=== PATIENT | male | born 1960 | race African-American/Black ===

== ENCOUNTER 2019-11-27 09:37 | Inpatient (IN) | payer OTHER ==
[2019-11-27] MEDS: Dextrose 5% in Water 1,000 ML IV SCH ×3 (12:22→22:47)
[2019-11-27] MEDS ORDERED: Electrolyte Replacement Protoc 1 EACH EACH IVPB ONE (12:51)
[2019-11-27] MEDS: Cefepime 1 GM in Sodium Chloride 0.9% 100 ML IVPB SCH (12:54)
[2019-11-27] MEDS: methylPREDNISolone Sod Succ 40 MG VIAL IVP SCH ×3 (12:54→23:29)
[2019-11-27] MEDS ORDERED: Propofol BOLUS 1,000 MG/100 ML VIAL IV PRN (13:00)
[2019-11-27] MEDS ORDERED: Albuterol 200 PUFF (6.7GM INHALER) INH SCH (13:00)
[2019-11-27] MEDS ORDERED: Ventilator Sedation Protocol 1 EACH FS SCH (13:00)
[2019-11-27] MEDS ORDERED: Morphine 2 MG/ML VIAL SLOW IVP PRN (13:00)
[2019-11-27] MEDS ORDERED: Fentanyl BOLUS 250 ML IVPB PRN (13:00)
[2019-11-27] MEDS ORDERED: fentaNYL Citrate/PF 2,000 MCG in Sodium Chloride 0.9% 60 ML IV SCH (13:00)
[2019-11-27] MEDS: Lorazepam 2 MG/ML VIAL SLOW IVP PRN ×3 (13:05→21:54)
[2019-11-27] MEDS: Propofol 1,000 MG/100 ML VIAL IV PRN (13:09)
[2019-11-27] MEDS ORDERED: Electrolyte Replacement Protocol FS PRN (13:15)
[2019-11-27] MEDS: REMDESIVIR (EUA) 100 MG in Sodium Chloride 0.9% 250 ML 230 ML IV SCH (13:40)
--- NOTE | 2019-11-27 19:15 | CON ---
DATE OF CONSULTATION: HISTORY OF PRESENT ILLNESS: A 58-year-old gentleman who was transferred from the [facility] with respiratory failure, status post intubation, status post insertion of a small-bore left-sided chest tube. The x-ray revealed a large pneumothorax. At 8 o'clock this morning, transferring physician, Dr. Sharpe notified me. The patient was being transferred after the patient developed progressive respiratory failure, probably from the pneumothorax. He has a right-sided subclavian catheter in place. Obviously, the patient is not able to give any history or information at this time. He was admitted on 11/22. It appears that he has received remdesivir, steroids, and broad-spectrum antibiotics. Unable to contact any family members. His initial diagnosis was zhou-positive pneumonia with metabolic encephalopathy, electrolyte imbalance, hypertension, BPH, probably bipolar disorder. PREVIOUS SURGERIES: Unobtainable at this time. REVIEW OF SYSTEMS: Difficult to obtain. PHYSICAL EXAMINATION: GENERAL: He is intubated, vented, sedated. VITAL SIGNS: Pulse 118, sats 95%, respirations 14, blood pressure 110/80. CHEST: Rhonchi and crackles. CARDIAC: Sinus tach. ABDOMEN: Soft. LABORATORY DATA: White count is 8000, H and H 11 and 36, platelet count is 183, slight left shift. His pO2 this morning was 29, pCO2 FiO2, apparently on a BiPAP. Sodium is 157. BUN and creatinine are normal. His C-reactive protein is 11. LDH is 615. DIAGNOSTIC STUDIES: I do not see any CT done of his chest, but CT brain was negative. His x-ray shows now a chest tube in place, still residual pneumothorax, bilateral infiltrates. ASSESSMENT: 1. Bilateral bronchopneumonia, zhou-positive pneumonia apparently on 11/23/2019. 2. Cachexia. 3. Electrolyte imbalance. 4. Hypertension. 5. Benign prostatic hypertrophy. 6. Depression. PLAN: IV fluids, D5 steroids, broad-spectrum antibiotics, chest tube in place. Nutrition being started. Long-term prognosis is poor. We will discuss with the family once we get the telephone number. Serial exam. We will try to culture his sputum for Gram stain if possible. Forty-five minutes of critical time. Job ID: [id number]
[2019-11-27] MEDS: Enoxaparin Sodium 80 MG/0.8 ML SYRINGE SC SCH (20:23)
[2019-11-27] MEDS: Famotidine/PF 20 mg/2ml Vial SLOW IVP SCH (20:23)
[2019-11-27] MEDS ORDERED: Enoxaparin Sodium 30 MG/0.3 ML SYRINGE SC SCH (21:00)
[2019-11-27] MEDS: Diltiazem HCl 125 MG, Admixture Fee 1 EACH in Sodium Chloride 0.9% 100 ML IVPB SCH (23:29)
[2019-11-28] MEDS ORDERED: Sodium Chloride 0.9% 250 ML IVPB SCH (00:15)
[2019-11-28] MEDS ORDERED: Sodium Chloride 0.9% 250 ML IV SCH (01:15)
[2019-11-28] MEDS: Cefepime 1 GM in Sodium Chloride 0.9% 100 ML IVPB SCH ×2 (01:15→13:25)
[2019-11-28] MEDS: Amiodarone 450 MG in Dextrose 5% in Water 250 ML IVPB SCH ×3 (01:16→18:23)
--- NOTE | 2019-11-28 01:18 | HP ---
CHIEF COMPLAINT: Respiratory failure. HISTORY OF PRESENT ILLNESS: Patient is a 58-year-old male who initially presented to [facility] on 11/22 with altered mental status. At this time, he was noted to have low oxygenation and at that time was already COVID positive. He was placed on BiPAP. He also was noted to have some mild rhabdomyolysis. The patient continued to be on BiPAP. Due to poor intake, he had a Dobhoff tube inserted and was started on tube feeding with also some free water given his hypernatremia. He was noted to have a transient tachycardia, possibly an SVT. He was on antibiotics and dexamethasone and was started on remdesivir. At this time, the reason that he was transferred from [facility] here was the patient became more tachypneic and tachycardic and was in worsening respiratory distress on the BiPAP. At this time, he had a chest x-ray which indicated a left-sided acute pneumothorax and also multifocal pneumonia. The patient had a left chest tube inserted and also was intubated and was transferred to [place] for further evaluation. PAST MEDICAL HISTORY: He has a history of schizoaffective disorder, hypertension, and tobacco abuse and marijuana abuse. ALLERGIES: HE HAS NO KNOWN DRUG ALLERGIES. MEDICATIONS: Per records indicate; 1. Amlodipine 10 mg daily. 2. Finasteride 5 mg daily. 3. Seroquel 100 mg daily. 4. Tamsulosin 0.4 mg daily. 5. Triamterene/hydrochlorothiazide 37.5/25 mg daily. REVIEW OF SYSTEMS: Unable to obtain. The patient is currently intubated. FAMILY HISTORY: Unable to be obtained. The patient is intubated. SOCIAL HISTORY: Again, he does have positive marijuana in his urine. Otherwise, unable to obtain, everything is from the records. PHYSICAL EXAMINATION: VITAL SIGNS: As of the following; temperature of 98.8, blood pressure 116/82, 109 heart rate. GENERAL: He is currently intubated, sedated. CV: S1, S2 present. Mild tachycardia. ABDOMEN: Soft. Bowel sounds are present x2. LUNGS: He has good air entry bilaterally. He has a chest tube on the left side that is inserted. NEUROVASCULAR: Again, unable to do a neuro exam. Patient is sedated. SKIN: No cuts, lesions, or bruises noted. LABORATORY RESULTS: WBCs of 8.0, hemoglobin of 11.5, hematocrit of 36.2, his platelets are 183. Chemistry; sodium of 157, potassium of 3.6, BUN of 45, creatinine of 0.75. His ferritin is 2581. His CRP was 11.86. He had a chest x-ray which indicated the left pneumothorax and infiltrates which appeared COVID-like appearance. ASSESSMENT AND PLAN: The patient is a 58-year-old male who presents to the hospital for altered mental status, went into respiratory failure and was evidently intubated and was transferred from [facility] to [place] for further evaluation. 1. Acute hypoxic respiratory failure, most likely secondary to the pneumothorax on the left, which was significant and also underlying coronavirus disease pneumonia. He is currently on antibiotics. His antibiotics have been changed from azithromycin and Rocephin to cefepime. 2. Decadron has been replaced with Solu-Medrol per Pulmonology. He was receiving remdesivir, which we will probably continue here. He received 3 doses. 3. Bacteremia. The patient's blood cultures indicated Streptococcus anginosus. He is currently on cefepime, which should cover that. We will continue to monitor. Unclear of the source. 4. Coronavirus disease pneumonia. We will continue the antibiotic. The patient is on remdesivir. He is on steroids. Prognosis is guarded. 5. Acute metabolic encephalopathy. The patient currently is intubated. 6. Deep venous thrombosis prophylaxis. Given patient's elevated D-dimer, we will start him on full-dose anticoagulation. We will check CBCs on a daily basis. We will check CRP and ferritin every 2-3 days. 7. Hypernatremia. We will start patient on some free water. 8. Nutrition. We will start patient on tube feedings. Job ID: [id number]
--- NOTE | 2019-11-28 02:22 | PDOC.EVN ---
Event Note - Event Note Event Note: Called by nursing for tachycardia, chart reviewed, patient seen and examined EKG reviewed with atrial fibrillation, started on cardizem drip by pulmonary and I ordered additional bolus, and also amiodarone bolus w/ CXR and some IVF, tachypneic to 30s, CXr reviewed will give lasix now, nursing to call Dr Reyes for further instructions on chest tube.
[2019-11-28] MEDS ORDERED: Furosemide 20 MG/2 ML VIAL ONE (02:29)
[2019-11-28] MEDS ORDERED: Furosemide 20 MG/2 ML VIAL SLOW IVP SCH (02:30)
[2019-11-28 02:33] LABS: Actual Bicarbonate (HCO3a) 23.4 mEq/L (22-28); Base Excess (BEa) 0.5 mEq/L (-2.0 to +3.0); CO2 Tension 32.1 mmHg (35.0-45.0); Calcium, Ionized (arterial) 1.06 mmol/L (1.12-1.30); Carboxyhemoglobin (COHb) 0.3 gm% (0.0-3.0); Hemoglobin (Hb) 11.3 g/dL (14.0-18.0); Potassium - ABG Lab 4.43 mmol/L (3.70-5.30); pH, Arterial 7.48 (7.35-7.45)
[2019-11-28 02:34] LABS: ALV-art Gradient 262.475 (0-20); O2 Tension (PaO2), arterial 53.9 mmHg (80.0-100.0); Puncture Site RBA
[2019-11-28] MEDS ORDERED: Amiodarone 150 MG, Admixture Fee 1 EACH in Dextrose 5% in Water 100 ML IVPB SCH (02:45)
[2019-11-28 05:25] LABS: Hemoglobin 10.9 g/dL (14.0-18.0); Mean Corpuscular HGB CONC 31.9 g/dL (32.0-36.0); Mean Corpuscular Hemoglobin 32.4 pg (27.0-31.0); Mean Platelet Volume 10.1 fL (7.4-10.4); Platelet Count 133 thou/uL (130-400); RBC Distribution Width 12.6 % (11.5-14.5); Red Blood Cell (RBC) Count 3.38 mill/uL (4.70-6.10); White Blood Cell (WBC) Count 7.7 thou/uL (4.8-10.8)
[2019-11-28] MEDS: methylPREDNISolone Sod Succ 40 MG VIAL IVP SCH ×3 (05:51→18:22)
[2019-11-28 05:53] LABS: Anion Gap 12 mmol/L (10-20); BUN (Urea Nitrogen) 47 mg/dL (8.4-25.7); Calc. Creatinine Clearance 94 mL/min (70-130); Calcium 7.3 mg/dL (7.8-10.44); Carbon Dioxide 26 mmol/L (22-29); Chloride 117 mmol/L (98-107); Estimated GFR-MDRD Greater than 90; Glucose 218 mg/dL (70-105); Potassium 4.1 mmol/L (3.5-5.1); Sodium 151 mmol/L (136-145)
[2019-11-28 06:09] LABS: Band 13 % (5-11); Lymphocytes 4 % (21-51); MDiff Complete? YES; Monocytes 1 % (0-10); Neutrophil 82 % (42-75)
[2019-11-28] MEDS: Diltiazem HCl 125 MG, Admixture Fee 1 EACH in Sodium Chloride 0.9% 100 ML IVPB SCH (07:17)
[2019-11-28 07:36] LABS: Actual Bicarbonate (HCO3a) 23.7 mEq/L (22-28); Base Excess (BEa) 0.5 mEq/L (-2.0 to +3.0); CO2 Tension 33.2 mmHg (35.0-45.0); Calcium, Ionized (arterial) 1.07 mmol/L (1.12-1.30); Carboxyhemoglobin (COHb) 0.3 gm% (0.0-3.0); Hemoglobin (Hb) 11.8 g/dL (14.0-18.0); O2 Tension (PaO2), arterial 73.6 mmHg (80.0-100.0); Potassium - ABG Lab 3.96 mmol/L (3.70-5.30); pH, Arterial 7.47 (7.35-7.45)
[2019-11-28 07:41] LABS: Puncture Site RR
[2019-11-28] MEDS ORDERED: Digoxin 0.5 MG/2 ML AMP SLOW IVP SCH ×2 (08:45→22:45)
[2019-11-28] MEDS ORDERED: Magnesium 2 GM/50 ML 2 GM in Premix Bag 1 BAG IVPB SCH (08:45)
--- NOTE | 2019-11-28 08:49 | RAD ---
Exam: Chest one view HISTORY:Status post intubation and chest tube placement. Respiratory distress. Ventilated patient Comparison: 11/27/2019 FINDINGS: Lines and tubes: Redemonstration of a Dobbhoff feeding tube, endotracheal tube, right-sided vascular catheter and a left-sided chest tube. Cardiac silhouette:Unchanged Aorta: Atherosclerosis Pulmonary vessels: Normal Costophrenic angles: Bilateral pleural effusions. Lungs: Persistent lung parenchymal opacities compatible with interstitial and alveolar infiltrates. Pneumothorax: Small left apical pneumothorax cannot be entirely excluded. Osseous abnormalities: None Additional findings: Increased lucency projecting over the left upper quadrant. Findings may be due t o gastric distention. Further evaluation with an abdomen radiograph series would be beneficial. IMPRESSION: 1. Small left apical pneumothorax cannot be entirely excluded. 2. Questionable increased lucency projecting over the left upper quadrant. Abdomen radiograph series would be beneficial. Findings conveyed to Pippa, patient's nurse, on 11/28/2019 at 8:48 AM. Code CR Transcribed Date/Time: 11/28/2019 10:22 AM
[2019-11-28] MEDS: Finasteride 5 MG TAB PO SCH (09:53)
[2019-11-28] MEDS: Enoxaparin Sodium 80 MG/0.8 ML SYRINGE SC SCH ×2 (09:53→20:51)
[2019-11-28] MEDS: Tamsulosin HCl 0.4 MG CAP PO SCH (09:53)
[2019-11-28] MEDS: Famotidine/PF 20 mg/2ml Vial SLOW IVP SCH ×2 (09:53→20:51)
[2019-11-28] MEDS: Dextrose 5% in Water 1,000 ML IV SCH ×2 (10:00→18:23)
--- NOTE | 2019-11-28 11:18 | CON ---
DATE OF CONSULTATION: 11/28/2019 REASON FOR CONSULTATION: AFib RVR. HISTORY OF PRESENT ILLNESS: Mr. Sheikh is a 58-year-old gentleman, who comes to the hospital for shortness of breath. He was actually admitted to the [facility] with a COVID-19 pneumonia. He eventually started to get a lot worse with worsening respiratory insufficiency. He also had a large pneumothorax. He was transferred over. A chest tube was placed and intubated. Cardiology has been consulted as he developed AFib RVR, heart rate in the 160s. Currently, on my evaluation, Mr. Sheikh remains sedated and intubated. PAST MEDICAL HISTORY: 1. Schizoaffective disorder. 2. Hypertension. 3. Tobacco abuse. 4. Marijuana use. OUTPATIENT MEDICATIONS: 1. Amlodipine 10 mg a day. 2. Finasteride. 3. Seroquel. 4. Tamsulosin. 5. Triamterene-hydrochlorothiazide 37.5/25 a day. ALLERGIES: NO KNOWN DRUG ALLERGIES. FAMILY HISTORY: Unobtainable as the patient is intubated. SOCIAL HISTORY: Positive marijuana in his urine, otherwise unknown. REVIEW OF SYSTEMS: Unobtainable as the patient is sedated and intubated. PHYSICAL EXAMINATION: VITAL SIGNS: Temperature 99.9; however, he came in at 100.4; pulse 135, currently at 128; blood pressure 104/73; respiratory rate 29; saturating 95% on 60% FiO2. GENERAL: Sedated, intubated. NECK: Supple. LUNGS: Have coarse breath sounds. CARDIOVASCULAR: Irregularly irregular. Heart rate in the 120s-130s. No murmurs. ABDOMEN: Soft. EXTREMITIES: No edema. SKIN: Warm and dry. LABORATORY DATA: Laboratory work was reviewed. CBC with a white count of 7.7, hemoglobin of 10, hematocrit of 34, platelet count of 133. Coags were reviewed. ABGs were reviewed. Chemistries were reviewed. Potassium it is at 4.1; however , it was low initially. Yesterday, he came in at 3.5-3.6. Ferritin was 2500, down to 1400. Troponin was drawn once on the and it was 0.38. UA toxicology was positive for cannabis. COVID-19 RNA PCR was positive. ASSESSMENT: 1. Atrial fibrillation, rapid ventricular response. 2. Coronavirus disease-19 pneumonia. 3. Pneumothorax, which is small. PLAN: 1. Continue amiodarone drip. This was started last night. 2. We will give a dose of digoxin. 3. Hopefully, once his acute respiratory insufficiency resolves, his heart rate is going to come down eventually. We do not have a lot of blood pressure to work with as far as trying to get him on more AV stephy blocking agents. 4. Continue supportive care. 5. We will get echocardiogram. Thank you for letting us to participate in the care patient of your patient. We will follow. 45 minutes of critical care time. Job ID: [id number] MTDD
[2019-11-28] MEDS: Propofol 1,000 MG/100 ML VIAL IV PRN (11:19)
[2019-11-28] MEDS: Lorazepam 2 MG/ML VIAL SLOW IVP PRN (11:19)
--- NOTE | 2019-11-28 13:07 | PRG ---
DATE OF SERVICE: 11/28/2019 SUBJECTIVE: A 58-year-old male being seen for hypernatremia. The patient is resting, intubated. PHYSICAL EXAMINATION: General: The patient is resting. Vital Signs: Afebrile, pulse 75, breathing at 16, blood pressure 135/84. HEENT: Head normocephalic and atraumatic. Eyes intact, no ulcers. Nose intact, no ulcers. Ears intact, no ulcers. Neck: Supple. No JVD. Chest: Symmetrical and clear. Cardiovascular: Shows S1 and S2, no rub, no murmur. Gastrointestinal: Abdomen is soft, bowel sounds positive. Extremities: Show no edema or ulcers. Skin: Shows no rash or petechiae. Musculoskeletal: Shows no joint swelling or stiffness. Genitourinary: Shows no Mustafa or CVA tenderness. Neurologic: Motor intact. Cranial nerves intact. LABORATORY DATA: Show hemoglobin 10.9, creatinine 0.8, sodium 151. ASSESSMENT AND PLAN: 1. Hypernatremia, improved. 2. Acute kidney injury chronic kidney disease stage 1, stable. 3. Hypertension, stable. 4. Continue hydration with D5 water. Check labs in the morning. Job ID: [id number]
[2019-11-28] MEDS: REMDESIVIR (EUA) 100 MG in Sodium Chloride 0.9% 250 ML 230 ML IV SCH (13:31)
[2019-11-28 15:06] LABS: Anion Gap 9 mmol/L (10-20); BUN (Urea Nitrogen) 46 mg/dL (8.4-25.7); Calc. Creatinine Clearance 91 mL/min (70-130); Calcium 7.1 mg/dL (7.8-10.44); Carbon Dioxide 29 mmol/L (22-29); Chloride 114 mmol/L (98-107); Estimated GFR-MDRD Greater than 90; Glucose 250 mg/dL (70-105); Potassium 4.1 mmol/L (3.5-5.1); Sodium 148 mmol/L (136-145)
--- NOTE | 2019-11-28 21:33 | PDOC.HOSPP ---
- Subjective Encounter Date: 11/28/19 Encounter Time: 11:00 non-verbal Subjective: Patient is intubated and managed on the vent Had RVR overnight requiring additional bolus of diltiazem and also amiodarone by night team I did not physically examine the patient as pulmonology was following - Objective Vital Signs & Weight: Vital Signs (12 hours) Temp Pulse Resp BP Pulse Ox 11/28/19 21:00 99.0 F 11/28/19 20:00 98.3 F 24 H 98 11/28/19 19:45 98.3 F 11/28/19 18:52 139 H 83/67 L 11/28/19 18:00 25 H 11/28/19 16:00 99.3 F 24 H 11/28/19 14:33 131 H 86/64 L 11/28/19 14:00 32 H 11/28/19 12:00 99.7 F H 30 H 11/28/19 10:23 135 H 104/73 11/28/19 10:00 151 H 34 H Weight Admit Weight 146 lb 9.718 oz Weight 147 lb 4.288 oz Most Recent Monitor Data Heart Rate from ECG 143 NIBP 98/52 NIBP BP-Mean 67 Respiration from ECG 19 SpO2 98 I&O: 11/27/19 11/28/19 11/29/19 06:59 06:59 06:59 Intake Total 1798.5 1759.8 Output Total 2050 1410 Balance -251.5 349.8 Result Diagrams: 12/03/19 07:43 12/05/19 19:35 Hospitalist ROS - Review of Systems Other: Unable to access - Medication Medications: Active Medications Generic Name Dose Route Start Last Admin Trade Name Freq PRN Reason Stop Dose Admin Albuterol/Ipratropium 3 ml 11/27/19 19:00 11/28/19 18:51 Duoneb NEB 3 ml [id number] ENZO Administration Enoxaparin Sodium 70 mg 11/27/19 21:00 11/28/19 20:51 Lovenox SC 70 mg 0900,2100 ENZO Administration Famotidine 20 mg 11/27/19 21:00 11/28/19 20:51 Pepcid SLOW IVP 20 mg BID ENZO Administration Finasteride 5 mg 11/28/19 09:00 11/28/19 09:53 Proscar PO 5 mg DAILY ENZO Administration Cefepime HCl 1 gm/ Sodium 100 mls @ 200 mls/hr 11/27/19 13:00 11/28/19 13:25 Chloride IVPB 100 mls 0100,1300 ENZO Administration Dextrose/Water 1,000 mls @ 100 mls/hr 11/27/19 12:00 11/28/19 18:23 D5w IV 1,000 mls .Q10H ENZO Administration Remdesivir 100 mg/ Sodium 250 mls @ 250 mls/hr 11/27/19 13:00 11/28/19 13:31 Chloride IV 11/29/19 13:59 250 mls 1300 ENZO Administration Fentanyl Citrate 2,000 mcg/ 100 mls @ 0 mls/hr 11/27/19 13:00 11/27/19 18:27 Sodium Chloride IV 12/27/19 13:00 100 mls INF ENZO Administration Protocol Per Protocol Diltiazem HCl 125 mg/ 125 mls @ 0 mls/hr 11/27/19 23:30 11/28/19 07:17 Miscellaneous Medication 1 IVPB 125 mls each/ Sodium Chloride INF ENZO Administration Protocol As Directed Amiodarone HCl 450 mg/ 259 mls @ 0 mls/hr 11/28/19 01:15 11/28/19 18:23 Dextrose/Water IVPB 259 mls INF ENZO Administration Protocol Per Protocol Lorazepam 2 mg 11/27/19 13:00 11/28/19 11:19 Ativan SLOW IVP 12/27/19 13:00 2 mg Q1H PRN Administration Breakthrough agitation Methylprednisolone Sodium Succinate 40 mg 11/27/19 12:00 11/28/19 18:22 Solu-Medrol IVP 40 mg Q6HR ENZO Administration Propofol 1,000 mg 11/27/19 13:00 11/28/19 11:19 Diprivan IV 12/27/19 13:00 1,000 mg INF PRN Administration TO ACHIEVE GOAL RASS Protocol Quetiapine Fumarate 200 mg 11/27/19 21:00 11/28/19 20:51 Seroquel PO 200 mg HS ENZO Administration Tamsulosin HCl 0.4 mg 11/28/19 09:00 11/28/19 09:53 Flomax PO 0.4 mg DAILY ENZO Administration Hosp A/P - Plan Patient admitted on account of covid 19 pneumonia and pneumothorax with chest tube. -Acute hypoxic respiratory failure Secondary to covid pneumonia and pneumothorax Chest tube is in place and patient on vent support Continue monitoring Pulmonology following -Pneumothorax continue chest tube management -Covid-19 infection Decadron changed to solumedrol contine on remdesevir Also on cefepime for pneumonia and to cover staph -Afib with RVR Still having RVR Continne on amiodarone and diltiazem Echocardiogram shows normal EF cardiology following
[2019-11-29] MEDS: Cefepime 1 GM in Sodium Chloride 0.9% 100 ML IVPB SCH ×3 (00:13→23:45)
[2019-11-29] MEDS: methylPREDNISolone Sod Succ 40 MG VIAL IVP SCH ×5 (00:13→23:45)
[2019-11-29] MEDS: Dextrose 5% in Water 1,000 ML IV SCH (00:14)
[2019-11-29 05:45] LABS: Anion Gap 9 mmol/L (10-20); BUN (Urea Nitrogen) 46 mg/dL (8.4-25.7); Calc. Creatinine Clearance 89 mL/min (70-130); Calcium 7.1 mg/dL (7.8-10.44); Carbon Dioxide 27 mmol/L (22-29); Chloride 110 mmol/L (98-107); Estimated GFR-MDRD Greater than 90; Glucose 315 mg/dL (70-105); Potassium 4.1 mmol/L (3.5-5.1); Sodium 142 mmol/L (136-145)
[2019-11-29 07:15] LABS: Band 20 % (5-11); Hemoglobin 10.5 g/dL (14.0-18.0); Lymphocytes 1 % (21-51); MDiff Complete? YES; Mean Corpuscular HGB CONC 31.1 g/dL (32.0-36.0); Mean Corpuscular Hemoglobin 32.1 pg (27.0-31.0); Mean Platelet Volume 10.5 fL (7.4-10.4); Neutrophil 79 % (42-75); Platelet Count 110 thou/uL (130-400); Platelet Morphology Comment Appears Decreased; RBC Distribution Width 12.3 % (11.5-14.5); Red Blood Cell (RBC) Count 3.28 mill/uL (4.70-6.10); White Blood Cell (WBC) Count 11.4 thou/uL (4.8-10.8)
--- NOTE | 2019-11-29 07:54 | PRG ---
DATE OF SERVICE: 11/28/2019 SUBJECTIVE: SVT last night. He was given Cardizem as admitted as well as amiodarone. His heart rate is still 130, SVT. OBJECTIVE: VITAL SIGNS: Blood pressure 120/80, respirations 20, and sats are 93%. CHEST: Reveals decreased breath sounds. Bilateral crackles. CARDIAC: SVT. ABDOMEN: Soft. NEUROLOGICALLY: Sedated. LABORATORY DATA: PO2 73, pCO2 33, pH 7.47, PEEP of 5, rate of 20, 50%. Sodium is down to 151, creatinine 4.7, bicarb is 21. His C-reactive protein . X-ray shows bilateral infiltrates. ASSESSMENT: 1. Coronavirus positive pneumonia, spontaneous left pneumothorax with persistent air leak. 2. Supraventricular tachycardia. 3. History of hypertension. 4. History of benign prostatic hypertrophy. He is getting remdesivir. He is on steroids, broad-spectrum antibiotics, and Zithromax. I am going to go ahead and order a bag of convalescent plasma. Input from Cardiology. One-half hour of critical care time. Job ID: [id number]
[2019-11-29 08:06] LABS: Actual Bicarbonate (HCO3a) 24.3 mEq/L (22-28); Base Excess (BEa) -0.9 mEq/L (-2.0 to +3.0); CO2 Tension 42.3 mmHg (35.0-45.0); Calcium, Ionized (arterial) 1.09 mmol/L (1.12-1.30); Carboxyhemoglobin (COHb) 0.3 gm% (0.0-3.0); Hemoglobin (Hb) 11.1 g/dL (14.0-18.0); O2 Tension (PaO2), arterial 83.6 mmHg (80.0-100.0); Potassium - ABG Lab 4.08 mmol/L (3.70-5.30); pH, Arterial 7.38 (7.35-7.45)
[2019-11-29 08:08] LABS: ALV-art Gradient 184.375 (0-20)
[2019-11-29] MEDS: Amiodarone 450 MG in Dextrose 5% in Water 250 ML IVPB SCH ×2 (08:42→22:11)
[2019-11-29] MEDS: Enoxaparin Sodium 80 MG/0.8 ML SYRINGE SC SCH ×2 (08:45→20:30)
[2019-11-29] MEDS: Famotidine/PF 20 mg/2ml Vial SLOW IVP SCH ×2 (08:45→20:30)
[2019-11-29] MEDS: Tamsulosin HCl 0.4 MG CAP PO SCH (08:45)
[2019-11-29] MEDS: Finasteride 5 MG TAB PO SCH (08:45)
[2019-11-29] MEDS ORDERED: Carvedilol 3.125 MG TAB PO SCH ×2 (08:45→17:00)
[2019-11-29] MEDS: Sodium Chloride 0.45% 1,000 ML IV SCH (08:46)
--- NOTE | 2019-11-29 09:21 | PRG ---
DATE OF SERVICE: 11/29/2019 SUBJECTIVE: Amos Sheikh remains intubated in the vent, sedated. He is still running a heart rate of 140 to 150, SVT. OBJECTIVE: VITAL SIGNS: His blood pressure is 90/50, sats 98%. His I's and O's have been good. Electrolyte imbalance was improved. CHEST: Decreased breath sounds. Minimal rhonchi. Crackles. No wheezing. CARDIAC: SVT. ABDOMEN: Soft. LABORATORY DATA: White count 11,000; H and H 10 and 30; and platelet count is 110. PO2 is 83, pCO2 tidal volume. His sodium is 142, glucose is 315, azotemia much improved. His BUN and creatinine are still 46 and 0.48. ASSESSMENT: 1. Renal failure, prerenal, improving. 2. Coronavirus positive pneumonia. 3. Spontaneous pneumothorax, baseline apparently. 4. Schizophrenia, bipolar disorder. He is starting nutrition. Continue steroids. He got plasma and remdesivir. He is doing much better. His x-ray looks 100% better. Hopefully, we can start weaning him. I am going to add low-dose Coreg to his present regime. Lower his heart rate down. One-half hour of critical care time. Job ID: [id number]
[2019-11-29] MEDS ORDERED: Dextrose 50% Abboject 50 ML SYRINGE SLOW IVP PRN (09:41)
[2019-11-29] MEDS ORDERED: Dextrose 5% in Water 1,000 ML IV PRN (09:41)
--- NOTE | 2019-11-29 11:27 | RAD ---
AP CHEST: HISTORY: Central line placement. COMPARISON: 11/28/19 FINDINGS: ET tube and NG tube remain in place. A central line overlies the SVC. Confluent infiltrate and atelectasis in the left lung base. Hazy infiltrate throughout the right lung . The bilateral infiltrates appear improved when compared to 11/28/19. A left pigtail chest tube overlies the peripheral left chest and appears unchanged in position. I can not exclude a loculated air collection in the left lung base. POS: AGW
[2019-11-29] MEDS: REMDESIVIR (EUA) 100 MG in Sodium Chloride 0.9% 250 ML 230 ML IV SCH (12:55)
[2019-11-29] MEDS: HumaLOG 300 UNITS/3 ML VIAL SC PRN ×2 (12:57→17:23)
--- NOTE | 2019-11-29 14:39 | PRG ---
DATE OF SERVICE: 11/29/2019 SUBJECTIVE: A 58-year-old gentleman being seen for acute kidney injury. The patient is intubated. OBJECTIVE: GENERAL: On examination, the patient is resting. VITAL SIGNS: Afebrile, pulse 128, breathing at 16, and blood pressure 96/62. HEENT: Head normocephalic and atraumatic. Eyes intact, no ulcers. Nose intact, no ulcers. Ears intact, no ulcers. NECK: Supple. No JVD. CHEST: Symmetrical and clear. CARDIOVASCULAR: Shows S1 and S2, no rub, no murmur. GASTROINTESTINAL: Abdomen is soft, bowel sounds positive. EXTREMITIES: Show no edema or ulcers. SKIN: Shows no rash or petechiae. MUSCULOSKELETAL: Shows no joint swelling or stiffness. GENITOURINARY: Shows no Mustafa or CVA tenderness. NEUROLOGIC: Motor intact. Cranial nerves intact. LABORATORY DATA: Hemoglobin 10.5. Creatinine 0.8. ASSESSMENT AND PLAN: 1. Acute kidney injury, resolved. 2. Hyponatremia, resolved. I will sign off on this patient. Please reconsult as needed. Job ID: [id number]
--- NOTE | 2019-11-29 16:12 | PDOC.HOSPP ---
- Subjective Encounter Date: 11/29/19 Encounter Time: 02:00 non-verbal Subjective: Stable overnight. Still had RVR I did not physicaly examine him. - Objective Vital Signs & Weight: Vital Signs (12 hours) Temp Pulse Resp BP Pulse Ox 11/29/19 15:41 142 H 108/65 11/29/19 14:00 26 H 11/29/19 13:06 128 H 96/62 11/29/19 12:00 98.5 F 25 H 11/29/19 10:31 120 H 101/78 11/29/19 10:00 20 11/29/19 08:00 98.5 F 14 97 11/29/19 07:37 147 H 11/29/19 06:00 22 H Weight Admit Weight 146 lb 9.718 oz Weight 147 lb 4.301 oz Most Recent Monitor Data Heart Rate from ECG 129 NIBP 108/65 NIBP BP-Mean 79 Respiration from ECG 14 SpO2 93 I&O: 11/28/19 11/29/19 11/30/19 06:59 06:59 06:59 Intake Total 1798.5 3602.8 100 Output Total 2050 2305 715 Balance -251.5 1297.8 -615 Result Diagrams: 12/03/19 07:43 12/05/19 19:35 Additional Labs: Accuchecks 11/29/19 12:32 POC Glucose 209 H Hospitalist ROS - Review of Systems ROS unobtainable: due to endotracheal tube - Medication Medications: Active Medications Generic Name Dose Route Start Last Admin Trade Name Freq PRN Reason Stop Dose Admin Albuterol/Ipratropium 3 ml 11/27/19 19:00 11/29/19 13:06 Duoneb NEB 3 ml [id number] ENZO Administration Enoxaparin Sodium 70 mg 11/27/19 21:00 11/29/19 08:45 Lovenox SC 70 mg 0900,2100 ENZO Administration Famotidine 20 mg 11/27/19 21:00 11/29/19 08:45 Pepcid SLOW IVP 20 mg BID ENZO Administration Finasteride 5 mg 11/28/19 09:00 11/29/19 08:45 Proscar PO 5 mg DAILY ENZO Administration Cefepime HCl 1 gm/ Sodium 100 mls @ 200 mls/hr 11/27/19 13:00 11/29/19 12:21 Chloride IVPB 100 mls 0100,1300 ENZO Administration Fentanyl Citrate 2,000 mcg/ 100 mls @ 0 mls/hr 11/27/19 13:00 11/27/19 18:27 Sodium Chloride IV 12/27/19 13:00 100 mls INF ENZO Administration Protocol Per Protocol Diltiazem HCl 125 mg/ 125 mls @ 0 mls/hr 11/27/19 23:30 11/28/19 07:17 Miscellaneous Medication 1 IVPB 125 mls each/ Sodium Chloride INF ENZO Administration Protocol As Directed Amiodarone HCl 450 mg/ 259 mls @ 0 mls/hr 11/28/19 01:15 11/29/19 08:42 Dextrose/Water IVPB 259 mls INF ENZO Administration Protocol Per Protocol Sodium Chloride 1,000 mls @ 50 mls/hr 11/29/19 08:30 11/29/19 08:46 1/2 Normal Saline IV 1,000 mls .Q20H ENZO Administration Insulin Human Lispro 0 units 11/29/19 09:41 11/29/19 12:57 Humalog SC 3 unit .MILD SLIDING SCALE PRN Administration Mild Correctional Scale Lorazepam 2 mg 11/27/19 13:00 11/28/19 11:19 Ativan SLOW IVP 12/27/19 13:00 2 mg Q1H PRN Administration Breakthrough agitation Methylprednisolone Sodium Succinate 40 mg 11/27/19 12:00 11/29/19 12:22 Solu-Medrol IVP 40 mg Q6HR ENZO Administration Propofol 1,000 mg 11/27/19 13:00 11/28/19 11:19 Diprivan IV 12/27/19 13:00 1,000 mg INF PRN Administration TO ACHIEVE GOAL RASS Protocol Quetiapine Fumarate 200 mg 11/27/19 21:00 11/28/19 20:51 Seroquel PO 200 mg HS ENZO Administration Tamsulosin HCl 0.4 mg 11/28/19 09:00 11/29/19 08:45 Flomax PO 0.4 mg DAILY ENZO Administration Hosp A/P - Plan Patient admitted as a transfer from [facility] on account of covid 19 pneumonia and pneumothorax with chest tube. -Acute hypoxic respiratory failure Secondary to covid pneumonia and pneumothorax Chest tube is in place and patient on vent support Continue monitoring Pulmonology following -Covid-19 pneumonia Market improvement in chest x-ray today We will continue steroids Received plasma contine on remdesevir Also on cefepime for pneumonia -Pneumothorax continue chest tube management Pulmonology is on board Hyperglycemia Likely secondary to steroids We will start on low correctional dose insulin Close glucose monitoring -Afib with RVR Still having RVR Continne on amiodarone and diltiazem Echocardiogram shows normal EF cardiology following VT prophylaxisLovenox Dispositionpending improvement
--- NOTE | 2019-11-29 16:23 | PDOC.CPN ---
- Subjective Date: 11/29/19 Time: 11:00 Interval history: He remains intubated, sedated. - Review of Systems ROS unobtainable: due to endotracheal tube - Objective Allergies/Adverse Reactions: Allergies Allergy/AdvReac Type Severity Reaction Status Date / Time No Known Allergies Allergy Unverified 11/23/19 10:51 Visit Medications: Current Medications Albuterol/Ipratropium (Duoneb) 3 ml NEB [id number] [facility] Last Admin: 11/29/19 13:06 Dose: 3 ml Carvedilol (Coreg) 3.125 mg PO BID-[facility] Dextrose/Water (Dextrose 50%) 25 gm SLOW IVP PRN PRN PRN Reason: Hypoglycemia Enoxaparin Sodium (Lovenox) 70 mg SC 0900,2100 [facility] Last Admin: 11/29/19 08:45 Dose: 70 mg Famotidine (Pepcid) 20 mg SLOW IVP BID [facility] Last Admin: 11/29/19 08:45 Dose: 20 mg Finasteride (Proscar) 5 mg PO DAILY [facility] Last Admin: 11/29/19 08:45 Dose: 5 mg Glucagon (Glucagon) 1 mg IM PRN PRN PRN Reason: Hypoglycemia Cefepime HCl 1 gm/ Sodium (Chloride) 100 mls @ 200 mls/hr IVPB 0100,1300 [facility] Last Admin: 11/29/19 12:21 Dose: 100 mls Fentanyl Citrate 2,000 mcg/ (Sodium Chloride) 100 mls @ 0 mls/hr IV INF [facility]; Protocol Stop: 12/27/19 13:00 Last Admin: 11/27/19 18:27 Dose: 100 mls Fentanyl Citrate (Fentanyl Bolus) 250 mls @ 0 mls/hr IVPB PRN PRN PRN Reason: Breakthrough pain/agitation Stop: 12/27/19 13:00 Diltiazem HCl 125 mg/Miscellaneous Medication 1 each/ Sodium Chloride 125 mls @ 0 mls/hr IVPB INF [facility]; Protocol Last Admin: 11/28/19 07:17 Dose: 125 mls Amiodarone HCl 450 mg/ (Dextrose/Water) 259 mls @ 0 mls/hr IVPB INF [facility]; Protocol Last Admin: 11/29/19 08:42 Dose: 259 mls Sodium Chloride (1/2 Normal Saline) 1,000 mls @ 50 mls/hr IV .Q20H [facility] Last Admin: 11/29/19 08:46 Dose: 1,000 mls Dextrose/Water (D5w) 1,000 mls @ 0 mls/hr IV .Q0M PRN PRN Reason: Hypoglycemia Insulin Human Lispro (Humalog) 0 units SC .MILD SLIDING SCALE PRN PRN Reason: Mild Correctional Scale Last Admin: 11/29/19 12:57 Dose: 3 unit Lorazepam (Ativan) 2 mg SLOW IVP Q1H PRN PRN Reason: Breakthrough agitation Stop: 12/27/19 13:00 Last Admin: 11/28/19 11:19 Dose: 2 mg Methylprednisolone Sodium Succinate (Solu-Medrol) 40 mg IVP Q6HR [facility] Last Admin: 11/29/19 12:22 Dose: 40 mg Miscellaneous Medication (Electrolyte Replacement Protocol) 0 each FS ASDIR PRN ; Protocol PRN Reason: ELECTROLYTE REPLACEMENT Morphine Sulfate (Morphine) 2 mg SLOW IVP Q1H PRN PRN Reason: Breakthrough Pain/Agitation Stop: 12/27/19 13:00 Propofol (Diprivan) 1,000 mg IV INF PRN; Protocol PRN Reason: TO ACHIEVE GOAL RASS Stop: 12/27/19 13:00 Last Admin: 11/28/19 11:19 Dose: 1,000 mg Propofol (Diprivan Bolus) 20 mg IV Q5MIN PRN PRN Reason: BREAKTHROUGH AGITATION Stop: 12/27/19 13:00 Quetiapine Fumarate (Seroquel) 200 mg PO HS [facility] Last Admin: 11/28/19 20:51 Dose: 200 mg Tamsulosin HCl (Flomax) 0.4 mg PO DAILY [facility] Last Admin: 11/29/19 08:45 Dose: 0.4 mg Vital Signs & Weight: Vital Signs Temp Pulse Resp BP Pulse Ox 11/29/19 15:41 142 H 108/65 11/29/19 14:00 26 H 11/29/19 13:06 128 H 96/62 11/29/19 12:00 98.5 F 25 H 11/29/19 10:31 120 H 101/78 11/29/19 10:00 20 11/29/19 08:00 98.5 F 14 97 11/29/19 07:37 147 H 11/29/19 06:00 22 H Admit Weight 146 lb 9.718 oz Weight 147 lb 4.301 oz - Physical Exam General: other (Not done due to COVID 19 infection.) - Labs Result Diagrams: 11/29/19 04:47 11/29/19 04:47 - Telemetry Supraventricular conduction: atrial fibrillation - Assessment/Plan Assessment/Plan: ASSESSMENT: 1. Atrial fibrillation, rapid ventricular response. 2. COVID-19 pneumonia. 3. Pneumothorax PLAN: - Continue amiodarone drip. - Will start daily PO digoxin - Continue supportive care. - Normal LV function on echo. - BP borderline low, will try to start low dose BB will choose Metoprolol as it has more HR control properties and less BP lowering properties than coreg.
[2019-11-29] MEDS: Metoprolol Tartrate 25 MG TAB PO SCH (20:30)
[2019-11-29] MEDS: Propofol 1,000 MG/100 ML VIAL IV PRN (22:10)
[2019-11-30] MEDS: Sodium Chloride 0.45% 1,000 ML IV SCH (04:22)
[2019-11-30] MEDS: methylPREDNISolone Sod Succ 40 MG VIAL IVP SCH ×4 (05:28→23:24)
[2019-11-30 06:20] LABS: Anion Gap 7 mmol/L (10-20); BUN (Urea Nitrogen) 49 mg/dL (8.4-25.7); Calc. Creatinine Clearance 92 mL/min (70-130); Calcium 7.2 mg/dL (7.8-10.44); Carbon Dioxide 27 mmol/L (22-29); Chloride 108 mmol/L (98-107); Estimated GFR-MDRD Greater than 90; Glucose 219 mg/dL (70-105); Potassium 4.4 mmol/L (3.5-5.1); Sodium 138 mmol/L (136-145)
[2019-11-30 06:43] LABS: Band 16 % (5-11); Hemoglobin 11.4 g/dL (14.0-18.0); MDiff Complete? YES; Mean Corpuscular HGB CONC 31.7 g/dL (32.0-36.0); Mean Corpuscular Hemoglobin 31.8 pg (27.0-31.0); Mean Platelet Volume 11.6 fL (7.4-10.4); Monocytes 1 % (0-10); Neutrophil 83 % (42-75); Platelet Count 117 thou/uL (130-400); Platelet Morphology Comment Appears Decreased; RBC Distribution Width 11.9 % (11.5-14.5); Red Blood Cell (RBC) Count 3.58 mill/uL (4.70-6.10); White Blood Cell (WBC) Count 15.8 thou/uL (4.8-10.8)
[2019-11-30 06:45] LABS: Actual Bicarbonate (HCO3a) 24.4 mEq/L (22-28); Base Excess (BEa) -1.3 mEq/L (-2.0 to +3.0); CO2 Tension 45.3 mmHg (35.0-45.0); Calcium, Ionized (arterial) 1.12 mmol/L (1.12-1.30); Carboxyhemoglobin (COHb) 0.3 gm% (0.0-3.0); Hemoglobin (Hb) 12.6 g/dL (14.0-18.0); O2 Tension (PaO2), arterial 99.3 mmHg (80.0-100.0); Potassium - ABG Lab 4.31 mmol/L (3.70-5.30); pH, Arterial 7.35 (7.35-7.45)
[2019-11-30 06:50] LABS: ALV-art Gradient 164.925 (0-20); Puncture Site RRA
[2019-11-30] MEDS: Enoxaparin Sodium 80 MG/0.8 ML SYRINGE SC SCH ×2 (08:13→19:21)
[2019-11-30] MEDS: Famotidine/PF 20 mg/2ml Vial SLOW IVP SCH ×2 (08:13→19:21)
[2019-11-30] MEDS: Tamsulosin HCl 0.4 MG CAP PO SCH (08:14)
[2019-11-30] MEDS: Metoprolol Tartrate 25 MG TAB PO SCH ×2 (08:14→19:21)
[2019-11-30] MEDS: Digoxin 0.25 MG TAB PO SCH (08:14)
[2019-11-30] MEDS: Finasteride 5 MG TAB PO SCH (08:14)
--- NOTE | 2019-11-30 09:28 | PRG ---
DATE OF SERVICE: 11/30/2019 SUBJECTIVE: This morning, he is intubated, in the vent. He is sedated. OBJECTIVE: VITAL SIGNS: Temperature 98, pulse 65, respiratory rate 23, blood pressure 120/73. CHEST: No wheezing, no crackles. CARDIAC: Normal S1, S2. ABDOMEN: No masses. LABORATORY DATA: White count 46[address]. PO2 is 99, pCO2 is . Lytes are normal. X-ray shows improvement in bilateral pulmonary infiltrates. ASSESSMENT: 1. Left pneumothorax, stable. 2. Supraventricular tachycardia,. 3. Bipolar. 4. Real positive pneumonia, respiratory failure. PLAN: Going to withhold sedation today. Hopefully, we can try and wean and extubate. Continue nutrition, PT. I spoke to his sister at length that his main doctor is [facility] physician. One-half hour of critical time. Job ID: [id number]
--- NOTE | 2019-11-30 09:35 | RAD ---
PORTABLE CHEST: HISTORY: Respiratory distress. COMPARISON: Prior day's exam. FINDINGS: Endotracheal tube is in satisfactory position. Dobbhoff tube is seen below the hemidiaphragm. Right subclavian line is at the superior vena cava/right atrium junction. Infiltrative changes in the lef t base are not significantly different than the prior exam. Changes in the right base and right upp er lobe may be slightly increased. IMPRESSION: Suggestion of some possible slight increase to the right upper and lower lobe parenchymal changes. S ome of this may just be technique-related. Otherwise, stable chest. POS: OFF
[2019-11-30] MEDS: HumaLOG 300 UNITS/3 ML VIAL SC PRN (11:21)
[2019-11-30] MEDS: Cefepime 1 GM in Sodium Chloride 0.9% 100 ML IVPB SCH (12:40)
--- NOTE | 2019-11-30 14:05 | PDOC.CPN ---
- Subjective Date: 11/30/19 Time: 14:00 Interval history: No new issues. Converted to sinus. Remains intubated. - Review of Systems ROS unobtainable: due to endotracheal tube - Objective Allergies/Adverse Reactions: Allergies Allergy/AdvReac Type Severity Reaction Status Date / Time No Known Allergies Allergy Unverified 11/23/19 10:51 Visit Medications: Current Medications Albuterol Sulfate (Proventil Hfa) 2 puff INH [id number] [facility] Dextrose/Water (Dextrose 50%) 25 gm SLOW IVP PRN PRN PRN Reason: Hypoglycemia Digoxin (Lanoxin) 0.25 mg PO DAILY [facility] Last Admin: 11/30/19 08:14 Dose: 0.25 mg Enoxaparin Sodium (Lovenox) 70 mg SC 0900,2100 [facility] Last Admin: 11/30/19 08:13 Dose: 70 mg Famotidine (Pepcid) 20 mg SLOW IVP BID [facility] Last Admin: 11/30/19 08:13 Dose: 20 mg Finasteride (Proscar) 5 mg PO DAILY [facility] Last Admin: 11/30/19 08:14 Dose: 5 mg Glucagon (Glucagon) 1 mg IM PRN PRN PRN Reason: Hypoglycemia Cefepime HCl 1 gm/ Sodium (Chloride) 100 mls @ 200 mls/hr IVPB 0100,1300 [facility] Last Admin: 11/30/19 12:40 Dose: 100 mls Fentanyl Citrate 2,000 mcg/ (Sodium Chloride) 100 mls @ 0 mls/hr IV INF [facility]; Protocol Stop: 12/27/19 13:00 Last Admin: 11/27/19 18:27 Dose: 100 mls Fentanyl Citrate (Fentanyl Bolus) 250 mls @ 0 mls/hr IVPB PRN PRN PRN Reason: Breakthrough pain/agitation Stop: 12/27/19 13:00 Diltiazem HCl 125 mg/Miscellaneous Medication 1 each/ Sodium Chloride 125 mls @ 0 mls/hr IVPB INF [facility]; Protocol Last Admin: 11/28/19 07:17 Dose: 125 mls Amiodarone HCl 450 mg/ (Dextrose/Water) 259 mls @ 0 mls/hr IVPB INF [facility]; Protocol Last Admin: 11/29/19 22:11 Dose: 259 mls Sodium Chloride (1/2 Normal Saline) 1,000 mls @ 50 mls/hr IV .Q20H [facility] Last Admin: 11/30/19 04:22 Dose: 1,000 mls Dextrose/Water (D5w) 1,000 mls @ 0 mls/hr IV .Q0M PRN PRN Reason: Hypoglycemia Insulin Human Lispro (Humalog) 0 units SC .MILD SLIDING SCALE PRN PRN Reason: Mild Correctional Scale Last Admin: 11/30/19 11:21 Dose: 3 unit Lorazepam (Ativan) 2 mg SLOW IVP Q1H PRN PRN Reason: Breakthrough agitation Stop: 12/27/19 13:00 Last Admin: 11/28/19 11:19 Dose: 2 mg Methylprednisolone Sodium Succinate (Solu-Medrol) 40 mg IVP Q6HR [facility] Last Admin: 11/30/19 11:17 Dose: 40 mg Metoprolol Tartrate (Lopressor) 12.5 mg PO BID [facility] Last Admin: 11/30/19 08:14 Dose: 12.5 mg Miscellaneous Medication (Electrolyte Replacement Protocol) 0 each FS ASDIR PRN ; Protocol PRN Reason: ELECTROLYTE REPLACEMENT Morphine Sulfate (Morphine) 2 mg SLOW IVP Q1H PRN PRN Reason: Breakthrough Pain/Agitation Stop: 12/27/19 13:00 Propofol (Diprivan) 1,000 mg IV INF PRN; Protocol PRN Reason: TO ACHIEVE GOAL RASS Stop: 12/27/19 13:00 Last Admin: 11/29/19 22:10 Dose: 1,000 mg Propofol (Diprivan Bolus) 20 mg IV Q5MIN PRN PRN Reason: BREAKTHROUGH AGITATION Stop: 12/27/19 13:00 Quetiapine Fumarate (Seroquel) 200 mg PO HS [facility] Last Admin: 11/29/19 20:48 Dose: 200 mg Tamsulosin HCl (Flomax) 0.4 mg PO DAILY [facility] Last Admin: 11/30/19 08:14 Dose: 0.4 mg Vital Signs & Weight: Vital Signs Temp Pulse Resp BP Pulse Ox 11/30/19 12:55 84 14 99 11/30/19 12:00 98.4 F 14 11/30/19 10:53 81 131/91 H 11/30/19 10:00 18 11/30/19 08:14 85 11/30/19 08:00 98.8 F 23 H 11/30/19 07:47 82 120/73 11/30/19 07:12 100 11/30/19 06:00 21 H 11/30/19 04:00 97.0 F L 20 11/30/19 02:00 22 H Admit Weight 146 lb 9.718 oz Weight 147 lb 4.301 oz - Physical Exam General: other (Not done due to covid 19 infection.) - Labs Result Diagrams: 11/30/19 05:20 11/30/19 05:20 - Telemetry Sinus rhythms and dysrhythmias: sinus rhythm - Assessment/Plan Assessment/Plan: 1. Atrial fibrillation, rapid ventricular response. Back to sinus. 2. COVID-19 pneumonia. 3. Pneumothorax, left. PLAN: - Continue amiodarone drip. - Contionue daily PO digoxin and metoprolol. - Continue supportive care. - Normal LV function on echo. - Will follow.
[2019-11-30] MEDS: Amiodarone 450 MG in Dextrose 5% in Water 250 ML IVPB SCH (15:42)
--- NOTE | 2019-11-30 16:44 | PQF ---
CLINICAL DOCUMENTATION CLARIFICATION FORM: Dear Dr. Anaya Date: 12/02/19 Please exercise your independent, professional judgment in responding to the clarification form. Clinical indicators are provided on the bottom of this form for your review. Please check appropriate box(es): [ ] Sepsis due to: __COVID 19 [ ] Severe sepsis with associated acute organ dysfunction: [ x ] Acute Respiratory Failure [ ] Acute Kidney injury w/o ATN [ ] Acute Kidney Injury w ATN [ ] Encephalopathy (metabolic) (septic) [ ] Disseminated Intravascular Coagulopathy (DIC) [ ] Hepatic Failure [ ] Additional/Other: please specify: [ ] Localized infection without sepsis [ ] SIRS due to non-infectious process (please specify etiology) [ ] with organ dysfunction [ ] without organ dysfunction [ ] Other diagnosis [ ] Unable to determine In addition, please specify: Present on Admission (POA): [ x] Yes [ ] No [ ] Unable to determine For continuity of documentation, please document condition throughout progress notes and discharge summary. Thank You. WBC 11/28: 11.4 WBC 11/29: 15.8 BANDS 11/28: 20 CRP 2.43 PULSE 106 - 190 RISKS: COVID 19 (PN 11/28 - [facility]) PNEUMONIA (PN 11/28-[facility]) PNEUMOTHORAX (PN 11/28 - [facility]) TREATMENT: CRITICAL CARE MONITORING SOLU-MEDROL (11/26-PRESENT) IV FLUIDS (11/28-PRESENT) IV CEFEPIME (11/26-PRESENT) REMDESIVIR (11/26-11/28) RESPIRATORY CULTURES 11/26 [facility] Signature: Melita Chatman RN Phone #: [phone] Date: 11/30/19 This is a permanent part of the Medical Record [facility]
--- NOTE | 2019-11-30 17:44 | EKG ---
Test Reason : STAT Blood Pressure : / mmHG Vent. Rate : 204 BPM Atrial Rate : 214 BPM P-R Int : 000 ms QRS Dur : 066 ms QT Int : 246 ms P-R-T Axes : 000 -44 206 degrees QTc Int : 453 ms Supraventricular tachycardia withaberrancy at times Left axis deviation Marked ST abnormality, possible inferior subendocardial injury Abnormal ECG No previous ECGs available Confirmed by ALICIA GONZALEZ (2) on 11/30/2019 5:43:42 PM Referred By: GREG Confirmed By:ALICIA GONZALEZ
[2019-11-30] MEDS: Albuterol 200 PUFF (6.7GM INHALER) INH SCH (18:31)
--- NOTE | 2019-11-30 23:51 | PDOC.HOSPP ---
- Subjective Encounter Date: 11/30/19 Encounter Time: 14:00 Subjective: Patient was seen but I did not go into the room to examine him. He has been seen earlier by pulmonology. His chart was reviewed. - Objective Vital Signs & Weight: Vital Signs (12 hours) Temp Pulse Resp Pulse Ox 11/30/19 20:00 96.5 F L 100 11/30/19 18:20 100 11/30/19 16:00 98.1 F 11/30/19 12:55 84 14 99 11/30/19 12:00 98.4 F 14 Weight Admit Weight 146 lb 9.718 oz Weight 147 lb 4.301 oz Most Recent Monitor Data Heart Rate from ECG 82 NIBP 120/87 NIBP BP-Mean 98 Respiration from ECG 19 SpO2 100 I&O: 11/29/19 11/30/19 12/01/19 06:59 06:59 06:59 Intake Total 3602.8 4339.5 828 Output Total 2305 1975 1540 Balance 1297.8 2364.5 -712 Result Diagrams: 11/30/19 05:20 11/30/19 05:20 Additional Labs: Accuchecks 11/30/19 11/30/19 11/30/19 21:05 15:56 11:27 POC Glucose 140 H 149 H 229 H 11/29/19 20:58 POC Glucose 163 H Hospitalist ROS - Medication Medications: Active Medications Generic Name Dose Route Start Last Admin Trade Name Freq PRN Reason Stop Dose Admin Albuterol Sulfate 2 puff 11/30/19 19:00 11/30/19 18:31 Proventil Hfa INH 2 puff [id number] [facility] Administration Digoxin 0.25 mg 11/30/19 09:00 11/30/19 08:14 Lanoxin PO 0.25 mg DAILY [facility] Administration Enoxaparin Sodium 70 mg 11/27/19 21:00 11/30/19 19:21 Lovenox SC 70 mg 09,2099 [facility] Administration Famotidine 20 mg 11/27/19 21:00 11/30/19 19:21 Pepcid SLOW IVP 20 mg BID [facility] Administration Finasteride 5 mg 11/28/19 09:00 11/30/19 08:14 Proscar PO 5 mg DAILY [facility] Administration Cefepime HCl 1 gm/ Sodium 100 mls @ 200 mls/hr 11/27/19 13:00 11/30/19 12:40 Chloride IVPB 100 mls 0100,1300 [facility] Administration Fentanyl Citrate 2,000 mcg/ 100 mls @ 0 mls/hr 11/27/19 13:00 11/27/19 18:27 Sodium Chloride IV 12/27/19 13:00 100 mls INF [facility] Administration Protocol Per Protocol Diltiazem HCl 125 mg/ 125 mls @ 0 mls/hr 11/27/19 23:30 11/28/19 07:17 Miscellaneous Medication 1 IVPB 125 mls each/ Sodium Chloride INF [facility] Administration Protocol As Directed Amiodarone HCl 450 mg/ 259 mls @ 0 mls/hr 11/28/19 01:15 11/30/19 15:42 Dextrose/Water IVPB 259 mls INF [facility] Administration Protocol Per Protocol Sodium Chloride 1,000 mls @ 50 mls/hr 11/29/19 08:30 11/30/19 04:22 1/2 Normal Saline IV 1,000 mls .Q20H [facility] Administration Insulin Human Lispro 0 units 11/29/19 09:41 11/30/19 11:21 Humalog SC 3 unit .MILD SLIDING SCALE PRN Administration Mild Correctional Scale Lorazepam 2 mg 11/27/19 13:00 11/28/19 11:19 Ativan SLOW IVP 12/27/19 13:00 2 mg Q1H PRN Administration Breakthrough agitation Methylprednisolone Sodium Succinate 40 mg 11/27/19 12:00 11/30/19 23:24 Solu-Medrol IVP 40 mg Q6HR [facility] Administration Metoprolol Tartrate 12.5 mg 11/29/19 21:00 11/30/19 19:21 Lopressor PO 12.5 mg BID [facility] Administration Propofol 1,000 mg 11/27/19 13:00 11/29/19 22:10 Diprivan IV 12/27/19 13:00 1,000 mg INF PRN Administration TO ACHIEVE GOAL RASS Protocol Quetiapine Fumarate 200 mg 11/27/19 21:00 11/30/19 19:22 Seroquel PO 200 mg HS [facility] Administration Sodium Chloride 10 ml 11/30/19 21:00 11/30/19 19:22 Flush - Normal Saline IVF 10 ml Q12HR [facility] Administration Tamsulosin HCl 0.4 mg 11/28/19 09:00 11/30/19 08:14 Flomax PO 0.4 mg DAILY [facility] Administration Hosp A/P - Plan Patient admitted as a transfer from [facility] on account of covid 19 pneumonia and pneumothorax with chest tube. -Acute hypoxic respiratory failureintubated Secondary to covid pneumonia and pneumothorax Generally improving. Appreciate pulmonology input. For possible extubation soon -Covid-19 pneumonia Market improvement in chest x-ray today We will continue steroids Received plasma contine on remdesevir Also on cefepime for pneumonia -Pneumothorax continue chest tube management Pulmonology is on board Hyperglycemia Likely secondary to steroids We will start on low correctional dose insulin Close glucose monitoring -Afib with RVR Still having RVR Continne on amiodarone and diltiazem Echocardiogram shows normal EF cardiology following VT prophylaxisLovenox Dispositionpending improvement
[2019-12-01] MEDS: Sodium Chloride 0.45% 1,000 ML IV SCH ×2 (01:48→22:34)
[2019-12-01] MEDS: Cefepime 1 GM in Sodium Chloride 0.9% 100 ML IVPB SCH ×2 (01:48→11:39)
[2019-12-01] MEDS: Albuterol 200 PUFF (6.7GM INHALER) INH SCH ×4 (02:08→19:07)
[2019-12-01] MEDS: methylPREDNISolone Sod Succ 40 MG VIAL IVP SCH ×3 (04:48→20:26)
[2019-12-01 05:22] LABS: #Lymphocytes 0.3 thou/uL (1.20-3.40); #Monocytes 0.3 thou/uL (0.11-0.59); %Monocytes 1.7 % (0.0-10.0); %Neutrophils 96.3 % (42.0-75.0); Hemoglobin 11.6 g/dL (14.0-18.0); Mean Corpuscular HGB CONC 31.7 g/dL (32.0-36.0); Mean Corpuscular Hemoglobin 31.4 pg (27.0-31.0); Mean Corpuscular Volume 99.1 fL (78.0-98.0); Platelet Count 138 thou/uL (130-400); Red Blood Cell (RBC) Count 3.68 mill/uL (4.70-6.10); White Blood Cell (WBC) Count 16.6 thou/uL (4.8-10.8)
[2019-12-01 05:43] LABS: Anion Gap 10 mmol/L (10-20); BUN (Urea Nitrogen) 44 mg/dL (8.4-25.7); Calc. Creatinine Clearance 107 mL/min (70-130); Calcium 7.4 mg/dL (7.8-10.44); Carbon Dioxide 25 mmol/L (22-29); Chloride 109 mmol/L (98-107); Estimated GFR-MDRD Greater than 90; Glucose 183 mg/dL (70-105); Potassium 4.2 mmol/L (3.5-5.1); Sodium 140 mmol/L (136-145)
[2019-12-01] MEDS: Finasteride 5 MG TAB PO SCH (08:31)
[2019-12-01] MEDS: Digoxin 0.25 MG TAB PO SCH (08:31)
[2019-12-01] MEDS: Tamsulosin HCl 0.4 MG CAP PO SCH (08:32)
[2019-12-01] MEDS: Metoprolol Tartrate 25 MG TAB PO SCH ×2 (08:32→20:26)
[2019-12-01] MEDS: Enoxaparin Sodium 80 MG/0.8 ML SYRINGE SC SCH ×2 (08:32→20:26)
[2019-12-01] MEDS: Famotidine/PF 20 mg/2ml Vial SLOW IVP SCH ×2 (08:32→20:26)
[2019-12-01] MEDS: Amiodarone 450 MG in Dextrose 5% in Water 250 ML IVPB SCH (08:40)
--- NOTE | 2019-12-01 09:19 | PRG ---
DATE OF SERVICE: 12/01/2019 SUBJECTIVE: Quintin Sheikh was extubated yesterday. He is awake, alert, and responsive. OBJECTIVE: VITAL SIGNS: Pulse 81, has a nasal O2 of 95%, blood pressure 130/85. CHEST: No wheezing. No crackles. CARDIAC: Normal S1, S2. ABDOMEN: No masses. LABORATORY DATA: BUN is 44. Sodium 140. White count 16,000. ASSESSMENT: 1. Respiratory failure, zhou positive pneumonia, status post remdesivir, status post convalescent plasma. 2. Supraventricular tachycardia, on several different medications. 3. Bipolar schizophrenia, on Seroquel. PLAN: We will watch him for another 24 hours in the ICU, he can eventually be transferred out. Speech is going to see him today. Continue PT, supportive care, nutrition, antibiotics. One-half hour of critical time. Job ID: [id number]
[2019-12-01] MEDS: HumaLOG 300 UNITS/3 ML VIAL SC PRN ×3 (12:50→20:33)
--- NOTE | 2019-12-01 17:27 | PDOC.CPN ---
- Subjective Date: 12/01/19 Time: 17:25 Interval history: He is now extubated. Still very weak and having trouble with swallowing. - Objective Allergies/Adverse Reactions: Allergies Allergy/AdvReac Type Severity Reaction Status Date / Time No Known Allergies Allergy Unverified 11/23/19 10:51 Visit Medications: Current Medications Albuterol Sulfate (Proventil Hfa) 2 puff INH [id number] [facility] Last Admin: 12/01/19 14:18 Dose: 2 puff Dextrose/Water (Dextrose 50%) 25 gm SLOW IVP PRN PRN PRN Reason: Hypoglycemia Digoxin (Lanoxin) 0.25 mg PO DAILY [facility] Last Admin: 12/01/19 08:31 Dose: 0.25 mg Enoxaparin Sodium (Lovenox) 70 mg SC 0900,2099 [facility] Last Admin: 12/01/19 08:32 Dose: 70 mg Famotidine (Pepcid) 20 mg SLOW IVP BID [facility] Last Admin: 12/01/19 08:32 Dose: 20 mg Finasteride (Proscar) 5 mg PO DAILY [facility] Last Admin: 12/01/19 08:31 Dose: 5 mg Glucagon (Glucagon) 1 mg IM PRN PRN PRN Reason: Hypoglycemia Cefepime HCl 1 gm/ Sodium (Chloride) 100 mls @ 200 mls/hr IVPB 0100,1300 [facility] Last Admin: 12/01/19 11:39 Dose: 100 mls Fentanyl Citrate 2,000 mcg/ (Sodium Chloride) 100 mls @ 0 mls/hr IV INF [facility]; Protocol Stop: 12/27/19 13:00 Last Admin: 11/27/19 18:27 Dose: 100 mls Fentanyl Citrate (Fentanyl Bolus) 250 mls @ 0 mls/hr IVPB PRN PRN PRN Reason: Breakthrough pain/agitation Stop: 12/27/19 13:00 Diltiazem HCl 125 mg/Miscellaneous Medication 1 each/ Sodium Chloride 125 mls @ 0 mls/hr IVPB INF [facility]; Protocol Last Admin: 11/28/19 07:17 Dose: 125 mls Amiodarone HCl 450 mg/ (Dextrose/Water) 259 mls @ 0 mls/hr IVPB INF [facility]; Protocol Last Admin: 12/01/19 08:40 Dose: 259 mls Sodium Chloride (1/2 Normal Saline) 1,000 mls @ 50 mls/hr IV .Q20H [facility] Last Admin: 12/01/19 01:48 Dose: 1,000 mls Dextrose/Water (D5w) 1,000 mls @ 0 mls/hr IV .Q0M PRN PRN Reason: Hypoglycemia Insulin Human Lispro (Humalog) 0 units SC .MILD SLIDING SCALE PRN PRN Reason: Mild Correctional Scale Last Admin: 12/01/19 12:50 Dose: 2 unit Lorazepam (Ativan) 2 mg SLOW IVP Q1H PRN PRN Reason: Breakthrough agitation Stop: 12/27/19 13:00 Last Admin: 11/28/19 11:19 Dose: 2 mg Methylprednisolone Sodium Succinate (Solu-Medrol) 40 mg IVP BID [facility] Last Admin: 12/01/19 11:39 Dose: 40 mg Metoprolol Tartrate (Lopressor) 12.5 mg PO BID [facility] Last Admin: 12/01/19 08:32 Dose: 12.5 mg Miscellaneous Medication (Electrolyte Replacement Protocol) 0 each FS ASDIR PRN ; Protocol PRN Reason: ELECTROLYTE REPLACEMENT Morphine Sulfate (Morphine) 2 mg SLOW IVP Q1H PRN PRN Reason: Breakthrough Pain/Agitation Stop: 12/27/19 13:00 Propofol (Diprivan) 1,000 mg IV INF PRN; Protocol PRN Reason: TO ACHIEVE GOAL RASS Stop: 12/27/19 13:00 Last Admin: 11/29/19 22:10 Dose: 1,000 mg Propofol (Diprivan Bolus) 20 mg IV Q5MIN PRN PRN Reason: BREAKTHROUGH AGITATION Stop: 12/27/19 13:00 Quetiapine Fumarate (Seroquel) 200 mg PO HS [facility] Last Admin: 11/30/19 19:22 Dose: 200 mg Sodium Chloride (Flush - Normal Saline) 10 ml IVF Q12HR [facility] Last Admin: 12/01/19 08:32 Dose: 10 ml Sodium Chloride (Flush - Normal Saline) 10 ml IVF PRN PRN PRN Reason: Saline Flush Tamsulosin HCl (Flomax) 0.4 mg PO DAILY [facility] Last Admin: 12/01/19 08:32 Dose: 0.4 mg Vital Signs & Weight: Vital Signs Temp Pulse Pulse Ox 12/01/19 16:00 97.4 F L 12/01/19 12:00 97.3 F L 12/01/19 08:31 81 12/01/19 08:00 97.4 F L 100 Admit Weight 146 lb 9.718 oz Weight 153 lb 3.54 oz - Physical Exam General: other (Not done due to covid 19 infection.) - Labs Result Diagrams: 12/01/19 05:00 12/01/19 05:00 - Telemetry Sinus rhythms and dysrhythmias: sinus rhythm - Assessment/Plan Assessment/Plan: 1. Atrial fibrillation, rapid ventricular response. Back to sinus. 2. COVID-19 pneumonia. 3. Pneumothorax, left. PLAN: - Continue amiodarone drip, will plan on switching to PO once he is able to tolerate PO. - Contionue PO digoxin and metoprolol. - Will follow.
--- NOTE | 2019-12-01 20:17 | PDOC.HOSPP ---
- Subjective Encounter Date: 12/01/19 Encounter Time: 10:00 Subjective: Patient was not physically examined. Pulmonology had evaluated earlier. He was extubated a day ago Chart was reviewed. - Objective Vital Signs & Weight: Vital Signs (12 hours) Temp Pulse 12/01/19 20:00 97.2 F L 12/01/19 16:00 97.4 F L 12/01/19 12:00 97.3 F L 12/01/19 08:31 81 Weight Admit Weight 146 lb 9.718 oz Weight 153 lb 3.54 oz Most Recent Monitor Data Heart Rate from ECG 83 NIBP 139/88 NIBP BP-Mean 105 Respiration from ECG 20 SpO2 99 I&O: 11/30/19 12/01/19 12/02/19 06:59 06:59 06:59 Intake Total 4339.5 1685 1023 Output Total 1975 2190 1315 Balance 2364.5 -505 -292 Result Diagrams: 12/03/19 07:43 12/05/19 19:35 Additional Labs: Accuchecks 12/01/19 12/01/19 11/30/19 16:13 11:56 21:05 POC Glucose 152 H 184 H 140 H Hospitalist ROS - Review of Systems Other: Was unable to access - Medication Medications: Active Medications Generic Name Dose Route Start Last Admin Trade Name Lianet PRN Reason Stop Dose Admin Albuterol Sulfate 2 puff 11/30/19 19:00 12/01/19 19:07 Proventil Hfa INH 2 puff [id number] ENZO Administration Digoxin 0.25 mg 11/30/19 09:00 12/01/19 08:31 Lanoxin PO 0.25 mg DAILY ENZO Administration Enoxaparin Sodium 70 mg 11/27/19 21:00 12/01/19 08:32 Lovenox SC 70 mg 0900,2100 ENZO Administration Famotidine 20 mg 11/27/19 21:00 12/01/19 08:32 Pepcid SLOW IVP 20 mg BID ENZO Administration Finasteride 5 mg 11/28/19 09:00 12/01/19 08:31 Proscar PO 5 mg DAILY ENZO Administration Cefepime HCl 1 gm/ Sodium 100 mls @ 200 mls/hr 11/27/19 13:00 12/01/19 11:39 Chloride IVPB 100 mls 0100,1300 ENZO Administration Fentanyl Citrate 2,000 mcg/ 100 mls @ 0 mls/hr 11/27/19 13:00 11/27/19 18:27 Sodium Chloride IV 12/27/19 13:00 100 mls INF ENZO Administration Protocol Per Protocol Diltiazem HCl 125 mg/ 125 mls @ 0 mls/hr 11/27/19 23:30 11/28/19 07:17 Miscellaneous Medication 1 IVPB 125 mls each/ Sodium Chloride INF ENZO Administration Protocol As Directed Amiodarone HCl 450 mg/ 259 mls @ 0 mls/hr 11/28/19 01:15 12/01/19 08:40 Dextrose/Water IVPB 259 mls INF ENZO Administration Protocol Per Protocol Sodium Chloride 1,000 mls @ 50 mls/hr 11/29/19 08:30 12/01/19 01:48 1/2 Normal Saline IV 1,000 mls .Q20H ENZO Administration Insulin Human Lispro 0 units 11/29/19 09:41 12/01/19 16:13 Humalog SC 2 unit .MILD SLIDING SCALE PRN Administration Mild Correctional Scale Lorazepam 2 mg 11/27/19 13:00 11/28/19 11:19 Ativan SLOW IVP 12/27/19 13:00 2 mg Q1H PRN Administration Breakthrough agitation Methylprednisolone Sodium Succinate 40 mg 12/01/19 09:00 12/01/19 11:39 Solu-Medrol IVP 40 mg BID ENZO Administration Metoprolol Tartrate 12.5 mg 11/29/19 21:00 12/01/19 08:32 Lopressor PO 12.5 mg BID ENZO Administration Propofol 1,000 mg 11/27/19 13:00 11/29/19 22:10 Diprivan IV 12/27/19 13:00 1,000 mg INF PRN Administration TO ACHIEVE GOAL RASS Protocol Quetiapine Fumarate 200 mg 11/27/19 21:00 11/30/19 19:22 Seroquel PO 200 mg HS ENZO Administration Sodium Chloride 10 ml 11/30/19 21:00 12/01/19 08:32 Flush - Normal Saline IVF 10 ml Q12HR ENZO Administration Tamsulosin HCl 0.4 mg 11/28/19 09:00 12/01/19 08:32 Flomax PO 0.4 mg DAILY ENZO Administration Hosp A/P - Plan Patient admitted as a transfer from [facility] on account of covid 19 pneumonia and pneumothorax with chest tube. Currently extubated and for possible transfer out of ICU tomorrow -Acute hypoxic respiratory failureintubated Secondary to covid pneumonia and pneumothorax Extubated a day ago doing generally well Pulmonology following Possible transfer for ICU tomorrow. -Covid-19 pneumonia Resolvingcontinue management Pulmonary input appreciated -Left pneumothorax Pulmonology is on board Hyperglycemia Likely secondary to steroids We will start on low correctional dose insulin Close glucose monitoring -Afib Heart rate improved Continne on amiodarone, digoxin Echocardiogram shows normal EF cardiology following VT prophylaxisLovenox Dispositionpending improvement
[2019-12-02] MEDS: Albuterol 200 PUFF (6.7GM INHALER) INH SCH ×4 (00:43→18:13)
[2019-12-02] MEDS: Amiodarone 450 MG in Dextrose 5% in Water 250 ML IVPB SCH (01:16)
[2019-12-02] MEDS: Cefepime 1 GM in Sodium Chloride 0.9% 100 ML IVPB SCH ×2 (01:16→13:31)
[2019-12-02 05:20] LABS: Anion Gap 10 mmol/L (10-20); BUN (Urea Nitrogen) 44 mg/dL (8.4-25.7); CRP (Inflammatory) 1.59 mg/dL (= or < 0.5); Calc. Creatinine Clearance 102 mL/min (70-130); Calcium 7.2 mg/dL (7.8-10.44); Carbon Dioxide 25 mmol/L (22-29); Chloride 110 mmol/L (98-107); Estimated GFR-MDRD Greater than 90; Glucose 182 mg/dL (70-105); Sodium 141 mmol/L (136-145)
[2019-12-02 05:29] LABS: Band 3 % (5-11); MDiff Complete? YES; Mean Corpuscular HGB CONC 32.9 g/dL (32.0-36.0); Mean Corpuscular Hemoglobin 32.6 pg (27.0-31.0); Mean Corpuscular Volume 99.1 fL (78.0-98.0); Mean Platelet Volume 10.6 fL (7.4-10.4); Monocytes 4 % (0-10); Neutrophil 93 % (42-75); Platelet Count 151 thou/uL (130-400); Red Blood Cell (RBC) Count 3.37 mill/uL (4.70-6.10); White Blood Cell (WBC) Count 15.3 thou/uL (4.8-10.8)
[2019-12-02] MEDS: HumaLOG 300 UNITS/3 ML VIAL SC PRN ×2 (05:48→18:09)
--- NOTE | 2019-12-02 07:57 | RAD ---
EXAM: Single view of the chest HISTORY: Ventilated patient with respiratory failure COMPARISON: 11/30/2019 FINDINGS: Single view of the chest shows a normal sized cardiomediastinal silhouette. The central ve nous catheter and left chest tube are unchanged in position. The feeding tube and endotracheal tube have been removed. No pneumothorax is seen. Bibasilar atelectasis versus infiltrates are present. De generative changes are seen in the spine. IMPRESSION: Stable exam status post extubation
[2019-12-02] MEDS: Famotidine/PF 20 mg/2ml Vial SLOW IVP SCH (08:18)
[2019-12-02] MEDS: methylPREDNISolone Sod Succ 40 MG VIAL IVP SCH (08:18)
[2019-12-02] MEDS: Tamsulosin HCl 0.4 MG CAP PO SCH (08:19)
[2019-12-02] MEDS: Metoprolol Tartrate 25 MG TAB PO SCH ×2 (08:21→21:20)
[2019-12-02] MEDS: Enoxaparin Sodium 80 MG/0.8 ML SYRINGE SC SCH ×2 (08:22→21:19)
[2019-12-02] MEDS: Finasteride 5 MG TAB PO SCH (08:22)
[2019-12-02] MEDS: Digoxin 0.25 MG TAB PO SCH (08:22)
--- NOTE | 2019-12-02 08:50 | PRG ---
DATE OF SERVICE: 12/02/2019 SUBJECTIVE: This morning, he is awake, alert, responsive. He is extubated without any distress. His x-ray appears to be a loculated pneumothorax, left lung. His chest tube is slightly above the pneumothorax, but he is in no distress. OBJECTIVE: VITAL SIGNS: He remains afebrile. Saturations are 98% on 2 L, blood pressure 130/80, respiratory rate 18. CHEST: No wheezing. No crackles. CARDIAC: Normal S1 LABORATORY DATA: White count 15,000. Lytes are normal. ASSESSMENT: Respiratory failure, zhou positive pneumonia, spontaneous pneumothorax, bipolar, schizophrenia. PLAN: He will be transferred out of the ICU. We are going to consult Surgery regarding his pneumothorax issues. Question is whether the chest tube needs to be manipulated. Switch him over to oral prednisone, oral antibiotics tomorrow. Nutrition, PT. Job ID: [id number]
[2019-12-02 12:53] LABS: SARS-CoV-2 MS2 Positive; SARS-CoV-2 N Gene Positive; SARS-CoV-2 S Gene Negative; SARS-CoV-2 by NAA Indeterminate (NotDetected); SARS-CoV-2 orf1ab Negative
[2019-12-02] MEDS: Sodium Chloride 0.45% 1,000 ML IV SCH (13:31)
--- NOTE | 2019-12-02 17:42 | PDOC.CPN ---
- Subjective Date: 12/02/19 Time: 17:40 Interval history: Remains in sinus. - Objective Allergies/Adverse Reactions: Allergies Allergy/AdvReac Type Severity Reaction Status Date / Time No Known Allergies Allergy Unverified 11/23/19 10:51 Visit Medications: Current Medications Albuterol Sulfate (Proventil Hfa) 2 puff INH [id number] ENZO Last Admin: 12/02/19 13:31 Dose: 2 puff Dextrose/Water (Dextrose 50%) 25 gm SLOW IVP PRN PRN PRN Reason: Hypoglycemia Digoxin (Lanoxin) 0.25 mg PO DAILY [facility] Last Admin: 12/02/19 08:22 Dose: 0.25 mg Enoxaparin Sodium (Lovenox) 70 mg SC 0900,2100 [facility] Last Admin: 12/02/19 08:22 Dose: 70 mg Famotidine (Pepcid) 20 mg PO BID ENZO Finasteride (Proscar) 5 mg PO DAILY [facility] Last Admin: 12/02/19 08:22 Dose: 5 mg Glucagon (Glucagon) 1 mg IM PRN PRN PRN Reason: Hypoglycemia Cefepime HCl 1 gm/ Sodium (Chloride) 100 mls @ 200 mls/hr IVPB 0100,1300 [facility] Last Admin: 12/02/19 13:31 Dose: 100 mls Fentanyl Citrate 2,000 mcg/ (Sodium Chloride) 100 mls @ 0 mls/hr IV INF ENZO; Protocol Stop: 12/27/19 13:00 Last Admin: 11/27/19 18:27 Dose: 100 mls Fentanyl Citrate (Fentanyl Bolus) 250 mls @ 0 mls/hr IVPB PRN PRN PRN Reason: Breakthrough pain/agitation Stop: 12/27/19 13:00 Diltiazem HCl 125 mg/Miscellaneous Medication 1 each/ Sodium Chloride 125 mls @ 0 mls/hr IVPB INF ENZO; Protocol Last Admin: 11/28/19 07:17 Dose: 125 mls Amiodarone HCl 450 mg/ (Dextrose/Water) 259 mls @ 0 mls/hr IVPB INF ENZO; Protocol Last Admin: 12/02/19 01:16 Dose: 259 mls Sodium Chloride (1/2 Normal Saline) 1,000 mls @ 50 mls/hr IV .Q20H ENZO Last Admin: 12/02/19 13:31 Dose: 1,000 mls Dextrose/Water (D5w) 1,000 mls @ 0 mls/hr IV .Q0M PRN PRN Reason: Hypoglycemia Insulin Human Lispro (Humalog) 0 units SC .MILD SLIDING SCALE PRN PRN Reason: Mild Correctional Scale Last Admin: 12/02/19 05:48 Dose: 2 unit Lorazepam (Ativan) 2 mg SLOW IVP Q1H PRN PRN Reason: Breakthrough agitation Stop: 12/27/19 13:00 Last Admin: 11/28/19 11:19 Dose: 2 mg Metoprolol Tartrate (Lopressor) 12.5 mg PO BID [facility] Last Admin: 12/02/19 08:21 Dose: 12.5 mg Miscellaneous Medication (Electrolyte Replacement Protocol) 0 each FS ASDIR PRN ; Protocol PRN Reason: ELECTROLYTE REPLACEMENT Morphine Sulfate (Morphine) 2 mg SLOW IVP Q1H PRN PRN Reason: Breakthrough Pain/Agitation Stop: 12/27/19 13:00 Prednisone (Prednisone) 20 mg PO QAM-[facility] Propofol (Diprivan) 1,000 mg IV INF PRN; Protocol PRN Reason: TO ACHIEVE GOAL RASS Stop: 12/27/19 13:00 Last Admin: 11/29/19 22:10 Dose: 1,000 mg Propofol (Diprivan Bolus) 20 mg IV Q5MIN PRN PRN Reason: BREAKTHROUGH AGITATION Stop: 12/27/19 13:00 Quetiapine Fumarate (Seroquel) 200 mg PO HS [facility] Last Admin: 12/01/19 20:25 Dose: 200 mg Sodium Chloride (Flush - Normal Saline) 10 ml IVF Q12HR [facility] Last Admin: 12/02/19 08:22 Dose: 10 ml Sodium Chloride (Flush - Normal Saline) 10 ml IVF PRN PRN PRN Reason: Saline Flush Tamsulosin HCl (Flomax) 0.4 mg PO DAILY [facility] Last Admin: 12/02/19 08:19 Dose: 0.4 mg Vital Signs & Weight: Vital Signs Temp Pulse Resp BP Pulse Ox 12/02/19 16:40 97.6 F 86 24 H 140/91 H 100 12/02/19 11:15 96.7 F L 71 24 H 142/85 H 100 12/02/19 08:22 76 12/02/19 08:00 97.7 F 99 Admit Weight 146 lb 9.718 oz Weight 151 lb 7.321 oz - Physical Exam General: other (Not done due to covid 19 infection.) - Labs Result Diagrams: 12/02/19 04:25 12/02/19 04:25 - Telemetry Sinus rhythms and dysrhythmias: sinus rhythm - Assessment/Plan Assessment/Plan: 1. Atrial fibrillation, rapid ventricular response. Back to sinus. 2. COVID-19 pneumonia. 3. Pneumothorax, left. PLAN: - Plan on stopping amiodarone for now as he has remained in sinus rhythm. He is high risk for QT prolongation with amiodarone given chronic use of quetiapine as outpatient for psychiatric issues. - Continue PO digoxin and metoprolol. - Continue full dose lovenox for stroke prophylaxis, switch to Eliquis 5 mg BID once pneumothorax resolved and no more surgical interventions planned. - Will sign off. Please call with any questions.
--- NOTE | 2019-12-02 18:40 | CON ---
DATE OF CONSULTATION: This is a 58-year-old gentleman, transferred from [facility] with COVID and pneumonia. He developed a pneumothorax on the left side at [facility], and had a small-bore catheter placed, although I cannot find a record of this being done. He was noted to have a loculated subpulmonic pneumothorax and perhaps a small apical component on the left as well as some pulmonary infiltrates. The patient's chest tube currently has about 1000 mL of fluid in it and there is no active air leak. I have flushed the catheter with 5 mL syringe multiple times, and appears to be patent. At this time, since the patient is fully anticoagulated, would not place a separate tube, leave this one in place to see if the drainage will decrease and expect if he does not have an active air leak that the pneumothorax will gradually reabsorb. Job ID: [id number]
[2019-12-02] MEDS: Famotidine 20 MG TAB PO SCH (21:20)
[2019-12-02] MEDS: Amiodarone 200 MG TAB PO SCH (21:21)
--- NOTE | 2019-12-02 22:16 | PDOC.HOSPP ---
- Subjective Encounter Date: 12/02/19 Encounter Time: 16:00 Subjective: And was seen and examined in bed. He complains of thirst. Mild nonproductive cough. Denies any chest pain or shortness of breath - Objective Vital Signs & Weight: Vital Signs (12 hours) Temp Pulse Resp BP Pulse Ox 12/02/19 20:08 94 L 12/02/19 16:40 97.6 F 86 24 H 140/91 H 100 12/02/19 11:15 96.7 F L 71 24 H 142/85 H 100 Weight Admit Weight 146 lb 9.718 oz Weight 151 lb 7.321 oz Most Recent Monitor Data Heart Rate from ECG 72 NIBP 134/90 NIBP BP-Mean 104 Respiration from ECG 20 SpO2 100 I&O: 12/01/19 12/02/19 12/03/19 06:59 06:59 06:59 Intake Total 1685 3109 848 Output Total 2190 2004 1290 Balance -505 1104 -442 Result Diagrams: 12/02/19 04:25 12/02/19 04:25 Additional Labs: Accuchecks 12/02/19 12/01/19 16:41 19:34 POC Glucose 206 H 226 H Hospitalist ROS - Medication Medications: Active Medications Generic Name Dose Route Start Last Admin Trade Name Freq PRN Reason Stop Dose Admin Albuterol Sulfate 2 puff 11/30/19 19:00 12/02/19 18:13 Proventil Hfa INH 2 puff [id number] ENZO Administration Amiodarone HCl 400 mg 12/02/19 21:00 12/02/19 21:21 Cordarone PO 12/08/19 23:59 400 mg BID ENZO Administration Digoxin 0.25 mg 11/30/19 09:00 12/02/19 08:22 Lanoxin PO 0.25 mg DAILY ENZO Administration Enoxaparin Sodium 70 mg 11/27/19 21:00 12/02/19 21:19 Lovenox SC 70 mg 899,2099 ENZO Administration Famotidine 20 mg 12/02/19 21:00 12/02/19 21:20 Pepcid PO 20 mg BID ENZO Administration Finasteride 5 mg 11/28/19 09:00 12/02/19 08:22 Proscar PO 5 mg DAILY ENZO Administration Cefepime HCl 1 gm/ Sodium 100 mls @ 200 mls/hr 11/27/19 13:00 12/02/19 13:31 Chloride IVPB 100 mls 0100,1300 ENZO Administration Fentanyl Citrate 2,000 mcg/ 100 mls @ 0 mls/hr 11/27/19 13:00 11/27/19 18:27 Sodium Chloride IV 12/27/19 13:00 100 mls INF ENZO Administration Protocol Per Protocol Sodium Chloride 1,000 mls @ 50 mls/hr 11/29/19 08:30 12/02/19 13:31 1/2 Normal Saline IV 1,000 mls .Q20H ENZO Administration Insulin Human Lispro 0 units 11/29/19 09:41 12/02/19 18:09 Humalog SC 3 unit .MILD SLIDING SCALE PRN Administration Mild Correctional Scale Lorazepam 2 mg 11/27/19 13:00 11/28/19 11:19 Ativan SLOW IVP 12/27/19 13:00 2 mg Q1H PRN Administration Breakthrough agitation Metoprolol Tartrate 12.5 mg 11/29/19 21:00 12/02/19 21:20 Lopressor PO 12.5 mg BID ENZO Administration Propofol 1,000 mg 11/27/19 13:00 11/29/19 22:10 Diprivan IV 12/27/19 13:00 1,000 mg INF PRN Administration TO ACHIEVE GOAL RASS Protocol Quetiapine Fumarate 200 mg 11/27/19 21:00 12/02/19 22:03 Seroquel PO 200 mg HS ENZO Administration Sodium Chloride 10 ml 11/30/19 21:00 12/02/19 21:21 Flush - Normal Saline IVF 10 ml Q12HR ENZO Administration Tamsulosin HCl 0.4 mg 11/28/19 09:00 12/02/19 08:19 Flomax PO 0.4 mg DAILY ENZO Administration - Exam General - other findings: In bed, no acute distress. Heart - other findings: S1-S2 present. No murmurs gallops or rubs. Respiratory - other findings: No wheezing crackles or rhonchi Neurological: cranial nerve grossly intact Psychiatric: A&O x 3 Hosp A/P - Plan Patient admitted as a transfer from [facility] on account of covid 19 pneumonia and pneumothorax with chest tube. Currently extubated and doing well. To be transferred out of ICU today -Acute hypoxic respiratory failureintubated Secondary to covid pneumonia and pneumothorax Extubated a day ago doing generally well Pulmonology following Possible transfer for ICU tomorrow. -Covid-19 pneumonia Resolvingcontinue management Pulmonary input appreciated -Left pneumothorax Consulting cardiothoracic surgery to manage chest tube Pulmonology is on board Hyperglycemia Likely secondary to steroids We will start on low correctional dose insulin Close glucose monitoring -Afib Now in sinus rhythm Continue p.o. digoxin and metoprolol Full dose Lovenox for stroke prophylaxisplan to switch to Eliquis as pneumothorax resolved Cardiology signed off VT prophylaxisLovenox Dispositionpending improvement
[2019-12-03] MEDS: Albuterol 200 PUFF (6.7GM INHALER) INH SCH ×4 (00:15→19:59)
[2019-12-03] MEDS: Cefepime 1 GM in Sodium Chloride 0.9% 100 ML IVPB SCH (00:15)
--- NOTE | 2019-12-03 07:54 | RAD ---
EXAM: Single view of the chest HISTORY: Respiratory failure COMPARISON: 12/02/2019 FINDINGS: Single view of the chest shows a normal sized cardiomediastinal silhouette. The central ve nous catheter is unchanged in position. Opacities in the lung bases may represent atelectasis or infiltrates. No acute osseous abnormality. IMPRESSION: Stable exam
[2019-12-03 07:58] LABS: #Lymphocytes 0.5 thou/uL (1.20-3.40); #Monocytes 0.3 thou/uL (0.11-0.59); #Neutrophils 8.8 thou/uL (1.40-6.50); %Basophils 0.1 % (0.0-1.0); %Eosinophils 0.2 % (0.0-10.0); %Lymphocytes 4.8 % (21.0-51.0); %Monocytes 2.7 % (0.0-10.0); %Neutrophils 92.2 % (42.0-75.0); Hemoglobin 9.7 g/dL (14.0-18.0); Mean Corpuscular HGB CONC 32.6 g/dL (32.0-36.0); Mean Corpuscular Hemoglobin 32.5 pg (27.0-31.0); Mean Corpuscular Volume 99.8 fL (78.0-98.0); Mean Platelet Volume 9.3 fL (7.4-10.4); Platelet Count 151 thou/uL (130-400); RBC Distribution Width 11.9 % (11.5-14.5); Red Blood Cell (RBC) Count 2.98 mill/uL (4.70-6.10); White Blood Cell (WBC) Count 9.6 thou/uL (4.8-10.8)
[2019-12-03 08:08] LABS: Anion Gap 9 mmol/L (10-20); BUN (Urea Nitrogen) 31 mg/dL (8.4-25.7); Calc. Creatinine Clearance 132 mL/min (70-130); Calcium 6.9 mg/dL (7.8-10.44); Carbon Dioxide 23 mmol/L (22-29); Chloride 108 mmol/L (98-107); Estimated GFR-MDRD Greater than 90; Glucose 101 mg/dL (70-105); Potassium 3.5 mmol/L (3.5-5.1); Sodium 136 mmol/L (136-145)
[2019-12-03] MEDS: Amiodarone 200 MG TAB PO SCH ×2 (08:23→20:01)
[2019-12-03] MEDS: Digoxin 0.25 MG TAB PO SCH (08:23)
[2019-12-03] MEDS: Famotidine 20 MG TAB PO SCH ×2 (08:23→20:00)
[2019-12-03] MEDS: Metoprolol Tartrate 25 MG TAB PO SCH ×2 (08:23→20:00)
[2019-12-03] MEDS: Tamsulosin HCl 0.4 MG CAP PO SCH (08:23)
[2019-12-03] MEDS: Finasteride 5 MG TAB PO SCH (08:23)
[2019-12-03] MEDS: predniSONE 20 MG TAB PO SCH (08:23)
[2019-12-03] MEDS: Enoxaparin Sodium 80 MG/0.8 ML SYRINGE SC SCH ×2 (08:24→20:00)
[2019-12-03] MEDS: Sodium Chloride 0.45% 1,000 ML IV SCH (08:48)
[2019-12-03] MEDS ORDERED: Amlodipine 10 MG TAB PO SCH (09:00)
[2019-12-03] MEDS ORDERED: Potassium Chloride 20 MEQ TAB PO SCH (09:00)
--- NOTE | 2019-12-03 10:03 | PRG ---
DATE OF SERVICE: 12/03/2019 SUBJECTIVE: Quintin Sheikh is awake, alert, responsive, was extubated. He is in no distress. OBJECTIVE: VITAL SIGNS: Temperature 98, pulse 80, respiratory rate 16, sats 100% on 2 L, blood pressure . GENERAL: The patient is more responsive. CHEST: Decreased breath sounds. No wheezing with no crackles. CARDIAC: Normal S1 and S2. No gallops. ABDOMEN: No masses. LABORATORY DATA: White count 9000, H and H 9 and 29, platelet count is normal. Lytes are normal. Chest x-ray shows chest tube with a small, maybe subpulmonic pneumothorax, infiltrate. IMPRESSION: 1. Respiratory failure, presumed Real positive pneumonia. The repeat serology test was considered indeterminate. He isolation. 1. Bilateral pneumonia, spontaneous pneumothorax. Chest tube in place. There is some drainage, which is decreased. CV Surgery was consulted. Hopefully, we can remove the tube in the next several days. 2. Supraventricular tachycardia, on Cordarone. He is still getting full-dose Lovenox. Disposition as per Cardiology. Once the chest tube is removed, he can probably be transferred to a skilled nursing facility rehab. Job ID: [id number]
[2019-12-03 14:10] LABS: Phosphorus 1.8 mg/dL (2.3-4.7)
--- NOTE | 2019-12-03 15:16 | PDOC.HOSPP ---
- Subjective Encounter Date: 12/03/19 Encounter Time: 10:20 Subjective: Seen and examined in bed. He feels generally weak. He sometimes spoke to himself. He denies any chest pain or shortness of breath Nurse notes that overnight there was a brief period where he was confused. - Objective Vital Signs & Weight: Vital Signs (12 hours) Temp Pulse Resp BP Pulse Ox 12/03/19 11:00 97.4 F L 73 20 143/87 H 100 12/03/19 08:00 98.1 F 80 16 124/76 100 12/03/19 04:00 98.1 F 88 20 125/81 100 Weight Admit Weight 146 lb 9.718 oz Weight 155 lb Most Recent Monitor Data Heart Rate from ECG 72 NIBP 134/90 NIBP BP-Mean 104 Respiration from ECG 20 SpO2 100 I&O: 12/02/19 12/03/19 12/04/19 06:59 06:59 06:59 Intake Total 310 2891 Output Total 2004 2039 Balance 1104 851 Result Diagrams: 12/03/19 07:43 12/05/19 19:35 Additional Labs: Accuchecks 12/03/19 12/03/19 12/02/19 10:59 04:38 21:41 POC Glucose 103 136 H 282 H 12/02/19 12/02/19 16:41 11:52 POC Glucose 206 H 136 H Hospitalist ROS - Medication Medications: Active Medications Generic Name Dose Route Start Last Admin Trade Name Freq PRN Reason Stop Dose Admin Albuterol Sulfate 2 puff 11/30/19 19:00 12/03/19 06:02 Proventil Hfa INH 2 puff [id number] [id number] Administration Amiodarone HCl 400 mg 12/02/19 21:00 12/03/19 08:23 Cordarone PO 12/08/19 23:59 400 mg BID ENZO Administration Digoxin 0.25 mg 11/30/19 09:00 12/03/19 08:23 Lanoxin PO 0.25 mg DAILY ENZO Administration Enoxaparin Sodium 70 mg 11/27/19 21:00 12/03/19 08:24 Lovenox SC 70 mg 0900,2100 ENZO Administration Famotidine 20 mg 12/02/19 21:00 12/03/19 08:23 Pepcid PO 20 mg BID ENZO Administration Finasteride 5 mg 11/28/19 09:00 12/03/19 08:23 Proscar PO 5 mg DAILY ENZO Administration Insulin Human Lispro 0 units 11/29/19 09:41 12/02/19 18:09 Humalog SC 3 unit .MILD SLIDING SCALE PRN Administration Mild Correctional Scale Metoprolol Tartrate 12.5 mg 11/29/19 21:00 12/03/19 08:23 Lopressor PO 12.5 mg BID ENZO Administration Prednisone 20 mg 12/03/19 08:00 12/03/19 08:23 Prednisone PO 20 mg QAM-WM ENZO Administration Propofol 1,000 mg 11/27/19 13:00 11/29/19 22:10 Diprivan IV 12/27/19 13:00 1,000 mg INF PRN Administration TO ACHIEVE GOAL RASS Protocol Quetiapine Fumarate 200 mg 11/27/19 21:00 12/02/19 22:03 Seroquel PO 200 mg HS ENZO Administration Sodium Chloride 10 ml 11/30/19 21:00 12/03/19 08:24 Flush - Normal Saline IVF 10 ml Q12HR ENZO Administration Tamsulosin HCl 0.4 mg 11/28/19 09:00 12/03/19 08:23 Flomax PO 0.4 mg DAILY ENZO Administration - Exam General - other findings: Patient is awake ill-looking. No acute distress. However Heart - other findings: S1-S2 present. No murmurs gallops or rubs. Respiratory - other findings: No rhonchi or wheezing bilaterally. Neurological - other findings: No focal deficits. However mattering words to himself. Psychiatric: A&O x 3 Hosp A/P - Plan Patient admitted as a transfer from [facility] on account of covid 19 pneumonia and pneumothorax with chest tube. Currently extubated and doing well. He is a bit less alert today and is weaker. To be transferred out of ICU and day ago. -Acute hypoxic respiratory failureintubated Secondary to covid pneumonia and pneumothorax Extubated a day ago doing generally well Pulmonology following Possible transfer for ICU tomorrow. -Covid-19 pneumonia Resolvingcontinue management Pulmonary input appreciated -Left pneumothorax Consulting cardiothoracic surgery to manage chest tube Pulmonology is on board Mild encephalopathy Etiology unclear We will check B12 TSH folic acid and phosphorus. Replace as indicated. This may be possibly deliriumthe night oriented and reduce irritation Hyperglycemia Likely secondary to steroids We will continue on low correctional dose insulin Close glucose monitoring -Afib Now in sinus rhythm Continue p.o. digoxin and metoprolol and amiodarone Full dose Lovenox for stroke prophylaxisplan to switch to Eliquis as pneumothorax resolved Cardiology signed off Schizophrenia Continue Seroquel BPH Continue tamsulosin and finasteride VT prophylaxisLovenox therapeutic Dispositionpending improvement
[2019-12-03] MEDS: Cefdinir 300 MG CAP PO SCH (20:00)
[2019-12-04] MEDS: Albuterol 200 PUFF (6.7GM INHALER) INH SCH ×4 (00:48→21:41)
--- NOTE | 2019-12-04 08:06 | RAD ---
EXAM: CHEST ONE VIEW HISTORY: On ventilator. Chest tube placement. Follow up evaluation. COMPARISON: 12/03/2019 FINDINGS: Right-sided vascular catheter remains in place. A cope loop all-purpose drainage catheter overlies th e left hemithorax serving as thoracostomy tube. This is stable in position. There is trace left pneumothorax. Irregular parenchymal airspace opacities at the left lung base are again seen. There is blunting of the right lateral costophrenic angle likely attributable to a tiny right pleural effusion with linear densities also present at the right lung base which could be related to volume l oss. There is suggestion of hazy opacity in the right midlung zone. Cardiac silhouette and pulmonary vasculature are within normal limits. There is suggestion of hazy opacity in the right midl sara zone. No other interval change. IMPRESSION: 1. Left-sided thoracostomy tube remains in place with trace pneumothorax. 2. Persistent parenchymal airspace opacities at the left lung base which could be related to pneumoni a. 2. Tiny right pleural effusion with atelectasis right lung base. Questionable hazy density in the rig ht midlung zone is seen.
[2019-12-04] MEDS: Cefdinir 300 MG CAP PO SCH ×2 (09:25→21:41)
[2019-12-04] MEDS: Famotidine 20 MG TAB PO SCH ×2 (09:25→21:42)
[2019-12-04] MEDS: Finasteride 5 MG TAB PO SCH (09:26)
[2019-12-04] MEDS: Digoxin 0.25 MG TAB PO SCH (09:26)
[2019-12-04] MEDS: Enoxaparin Sodium 80 MG/0.8 ML SYRINGE SC SCH ×2 (09:26→21:41)
[2019-12-04] MEDS: Metoprolol Tartrate 25 MG TAB PO SCH ×2 (09:26→21:42)
[2019-12-04] MEDS: predniSONE 20 MG TAB PO SCH (09:27)
[2019-12-04] MEDS: Tamsulosin HCl 0.4 MG CAP PO SCH (09:27)
[2019-12-04] MEDS: Amiodarone 200 MG TAB PO SCH ×2 (09:27→21:41)
[2019-12-04] MEDS: PHOS-NAK 1 PKT PACK PO SCH ×2 (09:31→13:22)
--- NOTE | 2019-12-04 10:54 | PRG ---
DATE OF SERVICE: 12/04/2019 OBJECTIVE: VITAL SIGNS: Temperature 97, pulse 102, respiratory rate 22, saturations 100% on 2 L, blood pressure 116/77. GENERAL: Awake, responsive. No distress. CHEST: Decreased breath sounds. No wheezing. No crackles. CARDIAC: Normal S1 and S2. No gallops. ABDOMEN: No masses. LABORATORY DATA: X-ray shows no pneumothorax, some residual left chest tube in place. IMPRESSION: 1. Supraventricular tachycardia, on multiple medications. 2. Bipolar schizophrenia. 3. Real positive pneumonia. 4. Respiratory failure, improved. 5. Cardiopulmonary resuscitation was indeterminate on 11/30. 6. Spontaneous pneumothorax. PLAN: His chest tube is going to be discontinued once the drainage has decreased. There is no air leak. His Lovenox can be switched over to p.o. medicine as per Cardiology. He is going to require some placement eventually. Job ID: [id number]
--- NOTE | 2019-12-04 15:19 | PDOC.HOSPP ---
- Subjective Encounter Date: 12/04/19 Encounter Time: 10:00 Subjective: Patient was seen and examined in bed. He was a bit lethargic however denied any chest pain shortness of breath no cough. There were no significant events overnight - Objective Vital Signs & Weight: Vital Signs (12 hours) Temp Pulse Resp BP Pulse Ox 12/04/19 13:31 98 F 90 22 H 125/78 100 12/04/19 10:24 96 12/04/19 09:38 99 F 94 20 114/73 100 12/04/19 04:54 97.5 F L 102 H 22 H 116/77 100 12/04/19 04:16 100 Weight Admit Weight 146 lb 9.718 oz Weight 154 lb 4.8 oz Most Recent Monitor Data Heart Rate from ECG 72 NIBP 134/90 NIBP BP-Mean 104 Respiration from ECG 20 SpO2 100 I&O: 12/03/19 12/04/19 12/05/19 06:59 06:59 06:59 Intake Total 2891 Output Total 2040 60 1500 Balance Result Diagrams: 12/03/19 07:43 12/05/19 19:35 Additional Labs: Accuchecks 12/04/19 12/04/19 12/03/19 13:52 04:55 20:18 POC Glucose 148 H 92 134 H 12/03/19 16:46 POC Glucose 128 H Hospitalist ROS - Medication Medications: Active Medications Generic Name Dose Route Start Last Admin Trade Name Freq PRN Reason Stop Dose Admin Albuterol Sulfate 2 puff 11/30/19 19:00 12/04/19 13:22 Proventil Hfa INH 2 puff [id number] ENZO Administration Amiodarone HCl 400 mg 12/02/19 21:00 12/04/19 09:27 Cordarone PO 12/08/19 23:59 400 mg BID ENZO Administration Cefdinir 300 mg 12/03/19 21:00 12/04/19 09:25 Omnicef PO 12/08/19 21:01 300 mg BID ENZO Administration Digoxin 0.25 mg 11/30/19 09:00 12/04/19 09:26 Lanoxin PO 0.25 mg DAILY ENZO Administration Enoxaparin Sodium 70 mg 11/27/19 21:00 12/04/19 09:26 Lovenox SC 70 mg 0900,2100 ENZO Administration Famotidine 20 mg 12/02/19 21:00 12/04/19 09:25 Pepcid PO 20 mg BID ENZO Administration Finasteride 5 mg 11/28/19 09:00 12/04/19 09:26 Proscar PO 5 mg DAILY ENZO Administration Insulin Human Lispro 0 units 11/29/19 09:41 12/02/19 18:09 Humalog SC 3 unit .MILD SLIDING SCALE PRN Administration Mild Correctional Scale Metoprolol Tartrate 12.5 mg 11/29/19 21:00 12/04/19 09:26 Lopressor PO 12.5 mg BID ENZO Administration Prednisone 20 mg 12/03/19 08:00 12/04/19 09:27 Prednisone PO 20 mg QAM-WM ENZO Administration Propofol 1,000 mg 11/27/19 13:00 11/29/19 22:10 Diprivan IV 12/27/19 13:00 1,000 mg INF PRN Administration TO ACHIEVE GOAL RASS Protocol Quetiapine Fumarate 200 mg 11/27/19 21:00 12/03/19 20:00 Seroquel PO 200 mg HS ENZO Administration Sodium Chloride 10 ml 11/30/19 21:00 12/04/19 09:27 Flush - Normal Saline IVF 10 ml Q12HR ENZO Administration Tamsulosin HCl 0.4 mg 11/28/19 09:00 12/04/19 09:27 Flomax PO 0.4 mg DAILY ENZO Administration - Exam General - other findings: Patient in bed. No acute distress. Heart - other findings: S1-S2 present. No murmurs gallops or rubs. Respiratory - other findings: Air entry adequate bilaterally. No rhonchi or rales Extremities - other findings: Bilateral lower and upper pitting pedal edema. Neurological - other findings: No gross abnormalities Psychiatric: A&O x 3 Psychiatric - other findings: Intermitently talking to himself Hosp A/P - Plan Patient admitted as a transfer from [facility] on account of covid 19 pneumonia and pneumothorax with chest tube. Currently extubated and doing well. He has been out of the unit for 2 days now. Patient generally stable -Acute hypoxic respiratory failureintubated Secondary to covid pneumonia and pneumothorax Extubated a day ago doing generally well Pulmonology following Possible transfer for ICU tomorrow. -Covid-19 pneumonia Resolvingcontinue management Repeat COVID test set indeterminate result. Patient still on contact precautionsID contracted. Pulmonary input appreciated -Left pneumothorax Consulting cardiothoracic surgery to manage chest tube Pulmonology is on board Mild encephalopathy Etiology unclearimproved We will check B12 TSH folic acid and phosphorus. Replace as indicated. This may be possibly deliriumthe night oriented and reduce irritation Hyperglycemia Likely secondary to steroids We will continue on low correctional dose insulin Close glucose monitoring -Afib Now in sinus rhythm Continue p.o. digoxin and metoprolol and amiodarone Full dose Lovenox for stroke prophylaxisplan to switch to Eliquis as pneumothorax resolved Cardiology signed off Schizophrenia Continue Seroquel BPH Continue tamsulosin and finasteride VT prophylaxisLovenox therapeutic Dispositionpending improvement Peripheral edema We will try PRN Lasix Monitor electrolytes VT prophylaxis therapeutic: Lovenox
[2019-12-04] MEDS ORDERED: Furosemide 40 MG/4 ML VIAL SLOW IVP SCH (15:30)
--- NOTE | 2019-12-04 16:20 | CON ---
DATE OF CONSULTATION: 12/04/2019 REASON FOR CONSULTATION: COVID pneumonia. HISTORY OF PRESENT ILLNESS: A 58-year-old who was last seen in the hospital at the end of October. At the time, he had sepsis and respiratory failure due to COVID infection, multifocal pneumonia, and left-sided pneumothorax. This required placement of a chest tube. He also had Strep anginosus bacteremia. This was 1 out of 2 sets of blood culture. Chest x-ray on admission on 11/22 revealed multifocal pneumonia with bilateral pleural effusions and this was at [facility]. He was given Decadron, Rocephin, and Zithromax. His creatinine was 3.45, so he was not eligible for remdesivir. He did have a history of schizophrenia, he was continued on Seroquel. The 1st day after admission, he was said saturating at 100% on BiPAP. He is continued on broad-spectrum antimicrobial coverage. He did not require vasopressors. The patient had neutrophilia with 16,000 predominance of mature neutrophils. On the day of admission, he had 1 out of 2 sets of blood cultures positive for Streptococcus anginosus. He developed a left pneumothorax and was transferred to [facility] and his renal function had improved. He was given remdesivir as well. During this early, he had to be intubated and with the improvement on 11/30, the patient was extubated and he was transferred to the COVID Unit. We were asked to evaluate because of repeat COVID test was ordered for some reason, not clear why it was repeated. The second COVID test on 11/30 was indeterminate. Evidently, the previous COVID test was performed just a few days before, and so other thing has been equal, there would be no reason to repeat a COVID test. Currently, Mr. Sheikh is awake. He is grimacing intermittently, thought he was at [place], but he realized he was in [facility]. He denies any headaches. No sore throat. Minimal chest pain. No abdominal pain. He is voiding in the diaper. He had an indwelling Mustafa, which has been removed. MEDICAL HISTORY: Includes: 1. Hypertension. 2. Schizoaffective disorder. 3. Chronic smoking. ALLERGIES: NONE. CURRENT MEDICATIONS: Include: 1. Cordarone. 2. Omnicef. 3. Lanoxin. 4. Lovenox 70 b.i.d. 5. Proscar. 6. Insulin. 7. Lopressor. 8. Prednisone 20 mg daily. 9. Flomax. 10. Seroquel. FAMILY HISTORY: Not available. SOCIAL HISTORY: He lives in [place]. Apparently lives with his daughter. Actually, he had been smoking until this event that led to the current admission. He has not had an alcoholic beverage in many months or years. PHYSICAL EXAMINATION: GENERAL: He appears thin, in no distress. VITAL SIGNS: His T-max 99, blood pressure 114/73, pulse 94, respirations 20, and O2 saturation 100 on 2 L and is 96 on room air at the moment. SKIN: There are no areas of skin breakdown. The patient has a peripheral IV access and a Mustafa catheter has been removed. There is a small bore chest tube in the left anterolateral location. No lymphadenopathy. HEENT: Some element of temporal wasting. Sclerae white. He has a few remaining teeth with marked decay and gum disease. Oral cavity is somewhat dry. No thrush or other oral mucosal lesions. NECK: Supple. No jugular vein distention. LUNGS: Diminished breath sounds on the left side. The right side is fairly clear to auscultation. HEART: S1 and S2 without significant murmurs. No S3. Regular rate. ABDOMEN: Soft, flat, not distended or tender. No ascites. No bladder distention. EXTREMITIES: No joint inflammatory activity. Moves extremities on command. No edema. Pulses 1+ in dorsalis pedis. Plantar responses are flexor. No clonus. NEUROLOGIC: He is awake. He establishes eye contact intermittently. He appears somewhat tearful at times and grimaces frequently. He has some difficulty with finding words. He is a bit disoriented. LABORATORY DATA: Currently, white cell count 9.6, hemoglobin 9.7, platelets 151 with 92% neutrophils. A pH 7.35, pCO2 of 45, and pO2 of 99. Sodium 136 and creatinine 0.6. The previous calcium 6.9. Phosphorus 1.8. Ferritin was 2048 2 days ago. It had been 1400 and went up a bit again. The ammonia was normal. C-reactive protein was at 34 and is down to 1.59. Lipase was 85. Urinalysis with 0 to 3 wbc's, 0 to 3 rbc's. Toxicology with cannabis detected. Blood culture has not been repeated. The last chest x-ray from 12/03 this morning with a left-sided thoracostomy tube, trace hemopneumothorax, parenchymal airspace opacities in the left lung base, and tiny right pleural effusion. CK was 1100 on admission. His transaminases have improved significantly since admission. ASSESSMENT: 1. Hypertension. 2. History of schizophrenia. 3. COVID pneumonia with Streptococcus anginosus bacteremia. 4. Sepsis. 5. Renal insufficiency, which has resolved. 6. Marked improvement in the respiratory insufficiency with recent extubation. 7. Spontaneous pneumothorax. DISCUSSION: I believe the diagnosis of COVID has been well established. I would not have repeated the second COVID test. Further management should be with the usual completion of the 10-day course of corticosteroids. Spontaneous pneumothorax is usually secondary to rupture of subpleural bullae and risk factors that contribute include chronic smoking, thin stature, male sex, low body mass index, prolonged cough, and chronic obstructive lung disease. Cases of spontaneous pneumothorax have been described in COVID infection, but is not particularly frequent and probably associated with underlying lung disease plus the increase in coughing spells as the most likely mechanism. He should continue on the usual respiratory precautions and finish his course of treatment as customary. We will add HIV, hepatitis C, and RPR if not done yet. Job ID: [id number] [facility]
[2019-12-04 17:54] LABS: Syphilis Antibody Nonreactive (Nonreactive); Syphilis Antibody Index 0.04 S/CO (<1.00 Non-Reactive)
[2019-12-04 17:55] LABS: HIV (1/2) Antibody/Antigen Non-Reactive (NonReactive); HIV 1/2 INDEX 0.22 S/CO (<1.00)
[2019-12-04 18:31] LABS: Hep C IgG Ab Reflex HepC Qnt (NonReactive)
[2019-12-05] MEDS: Albuterol 200 PUFF (6.7GM INHALER) INH SCH ×4 (01:07→18:19)
--- NOTE | 2019-12-05 07:14 | CON ---
DATE OF CONSULTATION: 12/04/2019 ADDENDUM TO CONSULTATION: The patient had Streptococcus anginosus bacteremia on admission, most likely transient bacteremia. Streptococcus anginosus is found in the GI tract anywhere from the oral cavity all the way to the colon, can be associated with pneumonia, intra-abdominal inflammatory processes, and other types of inflammatory processes. Sometimes, it can be associated with endocarditis, but typically in those cases, patients have continues bacteremia, i.e.; both this sets would have to be positive. In this case, pneumonia is the more likely scenario. He does have very poor dentition. He may have a periodontal inflammatory processes. A neck inflammatory process is not apparent at this time. An intra-abdominal inflammatory process is not apparent. Further evaluation might be required depending on clinical progress. Job ID: [id number]
--- NOTE | 2019-12-05 08:46 | RAD ---
PORTABLE CHEST 1 VIEW: DATE: 12/05/2019. TIME: 3:34 AM. HISTORY: Chest tube removal. FINDINGS/IMPRESSION: There has been interval removal of the left-sided thoracostomy tube since yesterday's exam. Tiny lef t apical pneumothorax again seen. Bibasilar opacities are again noted with probable small effusions. Right-sided central line remains in place. POS: OFF
[2019-12-05] MEDS: predniSONE 20 MG TAB PO SCH (08:50)
[2019-12-05] MEDS: Finasteride 5 MG TAB PO SCH (08:50)
[2019-12-05] MEDS: Tamsulosin HCl 0.4 MG CAP PO SCH (08:50)
[2019-12-05] MEDS: Digoxin 0.25 MG TAB PO SCH (08:50)
[2019-12-05] MEDS: Amiodarone 200 MG TAB PO SCH ×2 (08:50→19:45)
[2019-12-05] MEDS: Enoxaparin Sodium 80 MG/0.8 ML SYRINGE SC SCH ×2 (08:51→19:44)
[2019-12-05] MEDS: Cefdinir 300 MG CAP PO SCH ×2 (08:51→19:45)
[2019-12-05] MEDS: Famotidine 20 MG TAB PO SCH ×2 (08:51→19:46)
[2019-12-05] MEDS: Metoprolol Tartrate 25 MG TAB PO SCH ×2 (08:51→19:46)
[2019-12-05] MEDS: Acetaminophen 325 MG TAB PO PRN (14:23)
--- NOTE | 2019-12-05 17:22 | PDOC.HOSPP ---
- Subjective Encounter Date: 12/05/19 Encounter Time: 15:00 Subjective: pt up in bed no complains - Objective Vital Signs & Weight: Vital Signs (12 hours) Temp Pulse Resp BP BP Pulse Ox 12/05/19 15:28 98 F 93 28 H 111/61 97 12/05/19 11:00 97.8 F 92 20 116/60 98 12/05/19 08:12 99.0 F 92 20 114/65 99 12/05/19 05:55 98.1 F 91 19 110/70 96 Weight Admit Weight 146 lb 9.718 oz Weight 154 lb 4.8 oz Most Recent Monitor Data Heart Rate from ECG 72 NIBP 134/90 NIBP BP-Mean 104 Respiration from ECG 20 SpO2 100 I&O: 12/04/19 12/05/19 12/06/19 06:59 06:59 06:59 Intake Total 720 720 Output Total 60 1200 Balance -60 -480 720 Result Diagrams: 12/03/19 07:43 12/03/19 07:43 Additional Labs: Accuchecks 12/05/19 12/05/19 12/05/19 15:32 10:36 06:04 POC Glucose 206 H 192 H 122 H Hospitalist ROS - Review of Systems Respiratory: denies: cough, dry, shortness of breath, hemoptysis, SOB with excertion, pleuritic pain, sputum, wheezing, other Cardiovascular: denies: chest pain, palpitations, orthopnea, paroxysmal noc. dyspnea, edema, light headedness, other Gastrointestinal: denies: nausea, vomiting, abdominal pain, diarrhea, constipation, melena, hematochezia, other - Medication Medications: Active Medications Generic Name Dose Route Start Last Admin Trade Name Freq PRN Reason Stop Dose Admin Acetaminophen 650 mg 12/05/19 09:32 12/05/19 14:23 Tylenol PO 650 mg Q6H PRN Administration Pain Albuterol Sulfate 2 puff 11/30/19 19:00 12/05/19 14:24 Proventil Hfa INH 2 puff [id number] ENZO Administration Amiodarone HCl 400 mg 12/02/19 21:00 12/05/19 08:50 Cordarone PO 12/08/19 23:59 400 mg BID ENZO Administration Cefdinir 300 mg 12/03/19 21:00 12/05/19 08:51 Omnicef PO 12/08/19 21:01 300 mg BID ENZO Administration Digoxin 0.25 mg 11/30/19 09:00 12/05/19 08:50 Lanoxin PO 0.25 mg DAILY ENZO Administration Enoxaparin Sodium 70 mg 11/27/19 21:00 12/05/19 08:51 Lovenox SC 70 mg 0900,2100 ENZO Administration Famotidine 20 mg 12/02/19 21:00 12/05/19 08:51 Pepcid PO 20 mg BID ENZO Administration Finasteride 5 mg 11/28/19 09:00 12/05/19 08:50 Proscar PO 5 mg DAILY ENZO Administration Insulin Human Lispro 0 units 11/29/19 09:41 12/02/19 18:09 Humalog SC 3 unit .MILD SLIDING SCALE PRN Administration Mild Correctional Scale Metoprolol Tartrate 12.5 mg 11/29/19 21:00 12/05/19 08:51 Lopressor PO 12.5 mg BID ENZO Administration Prednisone 20 mg 12/03/19 08:00 12/05/19 08:50 Prednisone PO 20 mg QAM-WM ENZO Administration Quetiapine Fumarate 200 mg 11/27/19 21:00 12/04/19 21:42 Seroquel PO 200 mg HS ENZO Administration Sodium Chloride 10 ml 11/30/19 21:00 12/05/19 08:52 Flush - Normal Saline IVF 10 ml Q12HR ENZO Administration Tamsulosin HCl 0.4 mg 11/28/19 09:00 12/05/19 08:50 Flomax PO 0.4 mg DAILY ENZO Administration - Exam Neck: negative: supple, symmetric, no JVD, no thyromegaly, no lymphadenopathy, no carotid bruit, JVD Heart: negative: RRR, no murmur, no gallops, no rubs, normal peripheral pulses, irregular, diminshed peripheral pulses, murmur present, II/IV, III/IV Respiratory: negative: CTAB, no wheezes, no rales, no ronchi, normal chest expansion, no tachypnea, normal percussion, rales, rhonchi, tachypneic, wheezes Gastrointestinal: negative: soft, non-tender, non-distended, normal bowel sounds , no palpable masses, no hepatomegaly, no splenomegaly, no bruit, no guarding, no rigidity, tender to palpation, distended, diminished bowl sounds, voluntary guarding Extremities: 1+ LE edema Extremities - other findings: upper ext bilaterally, some swelling around penis Hosp A/P (1) Paraphimosis Code(s): N47.2 - PARAPHIMOSIS Status: Acute (2) Acute pneumothorax Code(s): J93.83 - OTHER PNEUMOTHORAX Status: Acute - Plan Patient admitted as a transfer from [facility] on account of covid 19 pneumonia and pneumothorax with chest tube. Currently extubated and doing well. He has been out of the unit for 2 days now. Patient generally stable -Acute hypoxic respiratory failureintubated Secondary to covid pneumonia and pneumothorax Extubated a day ago doing generally well Pulmonology following Possible transfer for ICU tomorrow. -Covid-19 pneumonia Resolvingcontinue management Repeat COVID test set indeterminate result. Patient still on contact precautionsID contracted. Pulmonary input appreciated -Left pneumothorax Consulting cardiothoracic surgery to manage chest tube Pulmonology is on board Mild encephalopathy Etiology unclearimproved We will check B12 TSH folic acid and phosphorus. Replace as indicated. This may be possibly deliriumthe night oriented and reduce irritation Hyperglycemia Likely secondary to steroids We will continue on low correctional dose insulin Close glucose monitoring -Afib Now in sinus rhythm Continue p.o. digoxin and metoprolol and amiodarone Full dose Lovenox for stroke prophylaxisplan to switch to Eliquis as pneumothorax resolved Cardiology signed off Schizophrenia Continue Seroquel BPH Continue tamsulosin and finasteride VT prophylaxisLovenox therapeutic Dispositionpending improvement Peripheral edema We will try PRN Lasix Monitor electrolytes VT prophylaxis therapeutic: Lovenox full dose will change to eliquis. 12/04 pt has paraphimosis he is able to urinate will monitor. will add labs today. if pt paraphimosis worsens will get urology. pt has no pain.
[2019-12-05 20:16] LABS: Anion Gap 10 mmol/L (10-20); BUN (Urea Nitrogen) 21 mg/dL (8.4-25.7); Calc. Creatinine Clearance 138 mL/min (70-130); Carbon Dioxide 24 mmol/L (22-29); Chloride 101 mmol/L (98-107); Estimated GFR-MDRD Greater than 90; Glucose 169 mg/dL (70-105); Potassium 3.6 mmol/L (3.5-5.1); Sodium 131 mmol/L (136-145)
[2019-12-06] MEDS: Albuterol 200 PUFF (6.7GM INHALER) INH SCH ×4 (01:48→18:39)
[2019-12-06] MEDS: Acetaminophen 325 MG TAB PO PRN (04:25)
[2019-12-06] MEDS: Enoxaparin Sodium 80 MG/0.8 ML SYRINGE SC SCH ×2 (09:35→20:36)
[2019-12-06] MEDS: Cefdinir 300 MG CAP PO SCH ×2 (09:36→20:36)
[2019-12-06] MEDS: Metoprolol Tartrate 25 MG TAB PO SCH ×2 (09:36→20:38)
[2019-12-06] MEDS: Amiodarone 200 MG TAB PO SCH ×2 (09:37→20:37)
[2019-12-06] MEDS: Famotidine 20 MG TAB PO SCH ×2 (09:38→20:37)
[2019-12-06] MEDS: predniSONE 20 MG TAB PO SCH (09:38)
[2019-12-06] MEDS: Finasteride 5 MG TAB PO SCH (09:38)
[2019-12-06] MEDS: Digoxin 0.25 MG TAB PO SCH (09:38)
[2019-12-06] MEDS: Tamsulosin HCl 0.4 MG CAP PO SCH (09:39)
--- NOTE | 2019-12-06 15:12 | PDOC.HOSPP ---
- Subjective Encounter Date: 12/06/19 Encounter Time: 11:30 Subjective: pt up in bed no complains. - Objective Vital Signs & Weight: Vital Signs (12 hours) Temp Pulse Resp BP BP Pulse Ox 12/06/19 11:16 97.7 F 82 20 104/67 100 12/06/19 09:38 85 12/06/19 08:20 98.5 F 85 20 105/59 L 100 12/06/19 04:20 98.1 F 88 24 H 108/65 95 Weight Admit Weight 146 lb 9.718 oz Weight 154 lb 12.8 oz Most Recent Monitor Data Heart Rate from ECG 72 NIBP 134/90 NIBP BP-Mean 104 Respiration from ECG 20 SpO2 100 I&O: 12/05/19 12/06/19 12/07/19 06:59 06:59 06:59 Intake Total 720 960 Output Total 1200 Balance -480 960 Result Diagrams: 12/03/19 07:43 12/05/19 19:35 Additional Labs: Accuchecks 12/06/19 12/06/19 12/05/19 11:16 04:21 15:32 POC Glucose 141 H 125 H 206 H Hospitalist ROS - Review of Systems Cardiovascular: denies: chest pain, palpitations, orthopnea, paroxysmal noc. dyspnea, edema, light headedness, other Gastrointestinal: denies: nausea, vomiting, abdominal pain, diarrhea, constipation, melena, hematochezia, other Genitourinary: denies: dysuria, frequency, incontinence, hematuria, retention, other - Medication Medications: Active Medications Generic Name Dose Route Start Last Admin Trade Name Joniq PRN Reason Stop Dose Admin Acetaminophen 650 mg 12/05/19 09:32 12/06/19 04:25 Tylenol PO 650 mg Q6H PRN Administration Pain Albuterol Sulfate 2 puff 11/30/19 19:00 12/06/19 13:33 Proventil Hfa INH 2 puff [id number] ENZO Administration Amiodarone HCl 400 mg 12/02/19 21:00 12/06/19 09:37 Cordarone PO 12/08/19 23:59 400 mg BID ENZO Administration Cefdinir 300 mg 12/03/19 21:00 12/06/19 09:36 Omnicef PO 12/08/19 21:01 300 mg BID ENZO Administration Digoxin 0.25 mg 11/30/19 09:00 12/06/19 09:38 Lanoxin PO 0.25 mg DAILY ENZO Administration Enoxaparin Sodium 70 mg 11/27/19 21:00 12/06/19 09:35 Lovenox SC 70 mg 0900,2100 ENZO Administration Famotidine 20 mg 12/02/19 21:00 12/06/19 09:38 Pepcid PO 20 mg BID ENZO Administration Finasteride 5 mg 11/28/19 09:00 12/06/19 09:38 Proscar PO 5 mg DAILY ENZO Administration Insulin Human Lispro 0 units 11/29/19 09:41 12/02/19 18:09 Humalog SC 3 unit .MILD SLIDING SCALE PRN Administration Mild Correctional Scale Metoprolol Tartrate 12.5 mg 11/29/19 21:00 12/06/19 09:36 Lopressor PO 12.5 mg BID ENZO Administration Prednisone 20 mg 12/03/19 08:00 12/06/19 09:38 Prednisone PO 20 mg QAM-WM ENZO Administration Quetiapine Fumarate 200 mg 11/27/19 21:00 12/05/19 19:46 Seroquel PO 200 mg HS ENZO Administration Sodium Chloride 10 ml 11/30/19 21:00 12/06/19 09:39 Flush - Normal Saline IVF 10 ml Q12HR ENZO Administration Tamsulosin HCl 0.4 mg 11/28/19 09:00 12/06/19 09:39 Flomax PO 0.4 mg DAILY ENZO Administration - Exam Neck: negative: supple, symmetric, no JVD, no thyromegaly, no lymphadenopathy, no carotid bruit, JVD Heart: negative: RRR, no murmur, no gallops, no rubs, normal peripheral pulses, irregular, diminshed peripheral pulses, murmur present, II/IV, III/IV Respiratory: negative: CTAB, no wheezes, no rales, no ronchi, normal chest expansion, no tachypnea, normal percussion, rales, rhonchi, tachypneic, wheezes Gastrointestinal: negative: soft, non-tender, non-distended, normal bowel sounds , no palpable masses, no hepatomegaly, no splenomegaly, no bruit, no guarding, no rigidity, tender to palpation, distended, diminished bowl sounds, voluntary guarding Extremities - other findings: paraphimosis worse today Hosp A/P (1) Paraphimosis Code(s): N47.2 - PARAPHIMOSIS Status: Acute (2) Acute pneumothorax Code(s): J93.83 - OTHER PNEUMOTHORAX Status: Acute - Plan Patient admitted as a transfer from [facility] on account of covid 19 pneumonia and pneumothorax with chest tube. Currently extubated and doing well. He has been out of the unit for 2 days now. Patient generally stable -Acute hypoxic respiratory failureintubated Secondary to covid pneumonia and pneumothorax Extubated a day ago doing generally well Pulmonology following Possible transfer for ICU tomorrow. -Covid-19 pneumonia Resolvingcontinue management Repeat COVID test set indeterminate result. Patient still on contact precautionsID contracted. Pulmonary input appreciated -Left pneumothorax Consulting cardiothoracic surgery to manage chest tube Pulmonology is on board Mild encephalopathy Etiology unclearimproved We will check B12 TSH folic acid and phosphorus. Replace as indicated. This may be possibly deliriumthe night oriented and reduce irritation Hyperglycemia Likely secondary to steroids We will continue on low correctional dose insulin Close glucose monitoring -Afib Now in sinus rhythm Continue p.o. digoxin and metoprolol and amiodarone Full dose Lovenox for stroke prophylaxisplan to switch to Eliquis as pneumothorax resolved Cardiology signed off Schizophrenia Continue Seroquel BPH Continue tamsulosin and finasteride VT prophylaxisLovenox therapeutic Dispositionpending improvement Peripheral edema We will try PRN Lasix Monitor electrolytes VT prophylaxis therapeutic: Lovenox full dose will change to eliquis. 12/04 pt has paraphimosis he is able to urinate will monitor. will add labs today. if pt paraphimosis worsens will get urology. pt has no pain. 12/05 will consult urology, he still has no pain nor any issues with urinating. will continue current meds. waiting for placement. will change AC to eliquis.
--- NOTE | 2019-12-07 00:46 | CON ---
DATE OF CONSULTATION: 12/06/2019 CONSULTING PHYSICIAN: Dr. Elena. COMMERCIAL SALES CONSULTANT: Dr. Montes. REASON FOR CONSULTATION: Paraphimosis. HISTORY OF PRESENT ILLNESS: Mr. Sheikh is a 58-year-old black male, who was admitted to the hospital for COVID-induced pneumonia with pneumothorax. He initially went to the ICU, where he was intubated with his chest tube. At some point during his stay in the ICU, it is presumed that he had a Mustafa catheter in , at which point, his foreskin was retracted. It is unclear exactly when this occurred, but it is possible that this occurred early on this hospitalization. At some point, his foreskin remained in the retracted position and stayed there. Today, Dr. Elena notified me and stated that the patient appeared to have a paraphimosis with swelling around his penis. He apparently was still able to urinate and he no longer has a Mustafa catheter. He was not necessarily complaining of any pain, but this was noted on examination. I was consulted to correct this issue. On my discussion with the patient, the patient is still somewhat confused and has some encephalopathy. He does answer questions, but does not seem to be clear with his history. He denied any urinary problems, but his history states that he takes tamsulosin and finasteride for BPH. He stated he was not hurting at all, just feels weak and tired. It is unclear if the patient has had any prior history of urinary infections, previous urologic surgeries, UTIs, gross hematuria, or other urinary issues as the patient is not answering questions appropriately at the current time. ALLERGIES: NONE. HOME MEDICATIONS: 1. Amlodipine. 2. Finasteride. 3. Seroquel. 4. Tamsulosin. 5. Triamterene/hydrochlorothiazide. PAST MEDICAL HISTORY: 1. Schizoaffective disorder. 2. Hypertension. 3. Tobacco abuse and marijuana abuse. 4. BPH. 5. Recent COVID testing indeterminate with pneumothorax. PAST SURGICAL HISTORY: Chest tube placement. Remainder is unknown. FAMILY HISTORY: Unclear, but apparently noncontributory. SOCIAL HISTORY: The patient has a previous use of tobacco and marijuana. There is no clear-cut history of alcohol abuse or illicit drug use, although the patient currently states he denies those. Again, it is not clear if his questions are appropriate or he is answering correctly. REVIEW OF SYSTEMS: A 12-point review of systems is really unable to be obtained clearly as the patient is not answering questions appropriately. He is not complaining of anything at the current time. PHYSICAL EXAMINATION: VITAL SIGNS: Temperature 97.7, pulse 82, respirations 20, blood pressure 104/67 , and saturation 100% on room air. GENERAL: No apparent distress. Appears older than stated age. Normal build, not answering questions appropriately, but the patient does appear alert. HEENT: Normocephalic, atraumatic. Pupils are symmetric and round. Sclerae nonicteric. Trachea midline. Poor dentition. Moist mucous membranes. CARDIOVASCULAR: Regular rate and rhythm. Normal S1 and S2. Symmetric pulses. CHEST: Nonlabored breathing. Symmetric expansion of lungs. No audible wheezes. ABDOMEN: Soft, nontender, nondistended. Positive bowel sounds. No obvious organomegaly or hernias. EXTREMITIES: No clubbing, cyanosis, or edema. SKIN: Warm and dry. No rashes or lesions. Good turgor. MUSCULOSKELETAL: No obvious joint deformities or joint erythema noted. NEUROLOGIC: Cranial nerves 2 through 12 appear grossly intact. No obvious focal or sensory motor deficits identified, although the patient has generalized weakness throughout, approximately 4/5 strength. PSYCHIATRIC: Alert and oriented x2, somewhat confused, appropriate affect. GENITOURINARY: The patient is uncircumcised. His foreskin is currently retracted with an hourglass-type deformity consistent with a paraphimosis. There is fairly moderate edema of the skin distal to the constriction ring. The glans does not appear necrotic or ischemic and actually has good blood flow. Meatus is normal. Testes are bilaterally descended. REX is deferred at the current time. There are no obvious testicular masses, varicoceles, hernias, or hydroceles noted. PROCEDURE: Manual compression was applied to the patient's genitals. Compression was applied until the edema significantly reduced from the distal aspect of the foreskin. At this point, the glans could be pushed inward past the constriction ring and the foreskin was completely reduced. This resulted in complete reduction of the paraphimosis. LABORATORY DATA: On laboratory review, there are no new labs today. Of note, most recent white count as of December 02 was 9.6 with a hemoglobin of 9.7. Creatinine of 0.57 as of December 04. COVID serology is indeterminate. ASSESSMENT AND PLAN: A 58-year-old black male with paraphimosis, which presumably occurred while patient was in the ICU, when he had his Mustafa catheter placed. He is unaware of any problems with his foreskin. He does not seem to really know what is going on very much right now. I did not feel this was the best opportunity or time to try to give him recommendations or advice on future care options regarding his foreskin. I just told him it would be best for him not to retract his foreskin at all during this hospital stay. Once he has recovered from his coronavirus and he is doing better, I can always see him as an outpatient to discuss circumcision if he desires. The patient will remain at high risk for repeat paraphimosis in the future if he does not get this corrected. At the current time, I will sign off. If Mustafa catheter is required on this patient and foreskin has to be retracted, it is imperative that the foreskin is reduced by nursing staff or physician who is attending him at that time to ensure that this does not occur again. I will sign off currently and the patient can follow up with me as an outpatient once his coronavirus status has resolved as to avoid further spread of virus for a nonemergent issue. Job ID: [id number] MTDD
[2019-12-07 00:56] LABS: Actual Bicarbonate (HCO3a) 23.4 mEq/L (22-28); Base Excess (BEa) 0.8 mEq/L (-2.0 to +3.0); CO2 Tension 28.9 mmHg (35.0-45.0); Calcium, Ionized (arterial) 1.05 mmol/L (1.12-1.30); Carboxyhemoglobin (COHb) 0.5 gm% (0.0-3.0); Hemoglobin (Hb) 7.2 g/dL (14.0-18.0); Potassium - ABG Lab 3.56 mmol/L (3.70-5.30); pH, Arterial 7.53 (7.35-7.45)
[2019-12-07 00:59] LABS: ALV-art Gradient 62.205 (0-20); O2 Tension (PaO2), arterial 51.4 mmHg (80.0-100.0)
[2019-12-07 01:01] LABS: #Lymphocytes 0.5 thou/uL (1.20-3.40); #Monocytes 0.5 thou/uL (0.11-0.59); #Neutrophils 6.8 thou/uL (1.40-6.50); %Basophils 0.2 % (0.0-1.0); %Eosinophils 0.2 % (0.0-10.0); %Lymphocytes 6.4 % (21.0-51.0); %Monocytes 5.8 % (0.0-10.0); %Neutrophils 87.4 % (42.0-75.0); Hemoglobin 7.2 g/dL (14.0-18.0); Mean Corpuscular HGB CONC 33.5 g/dL (32.0-36.0); Mean Corpuscular Hemoglobin 33.2 pg (27.0-31.0); Mean Corpuscular Volume 99.2 fL (78.0-98.0); Mean Platelet Volume 8.4 fL (7.4-10.4); Platelet Count 175 thou/uL (130-400); RBC Distribution Width 13.2 % (11.5-14.5); Red Blood Cell (RBC) Count 2.17 mill/uL (4.70-6.10); White Blood Cell (WBC) Count 7.8 thou/uL (4.8-10.8)
[2019-12-07 01:17] LABS: Lactic Acid 1.2 mmol/L (0.5-2.2)
[2019-12-07] MEDS: Albuterol 200 PUFF (6.7GM INHALER) INH SCH ×4 (01:17→21:33)
[2019-12-07 01:24] LABS: ALT (SGPT) 38 U/L (8-55); AST (SGOT) 42 U/L (5-34); Albumin 1.9 g/dL (3.5-5.0); Alkaline Phosphatase 58 U/L (40-110); Anion Gap 11 mmol/L (10-20); BUN (Urea Nitrogen) 20 mg/dL (8.4-25.7); Bilirubin, Total 0.4 mg/dL (0.2-1.2); Calc. Creatinine Clearance 134 mL/min (70-130); Calcium 7.1 mg/dL (7.8-10.44); Carbon Dioxide 23 mmol/L (22-29); Chloride 103 mmol/L (98-107); Estimated GFR-MDRD Greater than 90; Globulin 3.1 g/dL (2.4-3.5); Glucose 134 mg/dL (70-105); Magnesium 1.3 mg/dL (1.6-2.6); Potassium 3.6 mmol/L (3.5-5.1); Sodium 133 mmol/L (136-145)
--- NOTE | 2019-12-07 03:20 | PDOC.EVN ---
Event Note - Event Note Event Note: pt became more tachypnic chest dc AE l chest CXR large L pneumothorac surgeon consulted fo Chest tube transfer to IMCU..
[2019-12-07] MEDS ORDERED: Magnesium Sulfate 4 GM in Sodium Chloride 0.9% 250 ML 250 ML IVPB SCH (07:30)
[2019-12-07] MEDS: Enoxaparin Sodium 80 MG/0.8 ML SYRINGE SC SCH ×2 (08:24→20:04)
[2019-12-07] MEDS: predniSONE 20 MG TAB PO SCH (08:24)
[2019-12-07] MEDS: Tamsulosin HCl 0.4 MG CAP PO SCH (08:24)
[2019-12-07] MEDS: Metoprolol Tartrate 25 MG TAB PO SCH ×2 (08:24→20:03)
[2019-12-07] MEDS: Digoxin 0.25 MG TAB PO SCH (08:24)
[2019-12-07] MEDS: Finasteride 5 MG TAB PO SCH (08:25)
[2019-12-07] MEDS: Famotidine 20 MG TAB PO SCH ×2 (08:25→20:03)
[2019-12-07] MEDS: Amiodarone 200 MG TAB PO SCH ×2 (08:25→20:02)
[2019-12-07] MEDS: Cefdinir 300 MG CAP PO SCH ×2 (08:25→20:02)
--- NOTE | 2019-12-07 08:57 | RAD ---
CHEST 1 VIEW: HISTORY: Shortness of breath and tachypnea. COMPARISON: Radiograph 2 days prior. FINDINGS: Large left hydropneumothorax. A followup radiograph has been performed and a chest tube has been willie baldomero. There is mild rightward mediastinal shift. Fibrotic changes in the lung bases. IMPRESSION: Large left pneumothorax under some tension. Chest tube placement recommended. Of note, a followup r adiograph has already been performed with a chest tube in place. POS: HOME
--- NOTE | 2019-12-07 09:14 | RAD ---
CHEST 1 VIEW: HISTORY: Chest tube placement. COMPARISON: Radiograph of same day. FINDINGS: A left-sided thoracostomy tube is in place with interval decrease in size of the left intraluminal pn eumothorax. The right subclavian central venous catheter tip projects over the right atrium. IMPRESSION: Improved left lung aeration with minimal pneumothorax remaining. POS: HOME
[2019-12-07] MEDS: Acetaminophen 325 MG TAB PO PRN (12:06)
--- NOTE | 2019-12-07 12:12 | PRG ---
DATE OF SERVICE: 12/07/2019 SUBJECTIVE: This patient developed a tension pneumothorax on the left last night and required chest tube placement by Dr. Talavera. He is now stable. OBJECTIVE: VITAL SIGNS: His temperature is 98.7, pulse 92, blood pressure 104/62, and O2 sat 100%. HEENT: Unremarkable. NECK: No adenopathy or JVD . LUNGS: Clear bilaterally. He has air leak on the left. Pleu-evac. CARDIAC: S1 and S2, regular. ABDOMEN: Soft. EXTREMITIES: No edema. ASSESSMENT: 1. COVID-19 pneumonia. 2. Left-sided pneumothorax. PLAN: Continue steroids, anticoagulation, chest tube drainage until air leak seals. I will notify Dr. Reyes. Job ID: [id number]
--- NOTE | 2019-12-07 14:47 | PDOC.HOSPP ---
- Subjective Encounter Date: 12/07/19 Encounter Time: 11:15 Subjective: pt up in bed no complains. - Objective Vital Signs & Weight: Vital Signs (12 hours) Temp Pulse Pulse Ox 12/07/19 12:00 98.9 F 12/07/19 08:24 104 H 12/07/19 08:00 98.7 F 98 12/07/19 04:00 98.5 F 12/07/19 03:00 99 Weight Admit Weight 146 lb 9.718 oz Weight 155 lb 8 oz Most Recent Monitor Data Heart Rate from ECG 76 NIBP 112/63 NIBP BP-Mean 79 Respiration from ECG 22 SpO2 100 I&O: 12/06/19 12/07/19 12/08/19 06:59 06:59 06:59 Intake Total 960 500 Output Total 450 Balance 960 50 Result Diagrams: 12/07/19 00:43 12/07/19 00:43 Additional Labs: Accuchecks 12/07/19 12/07/19 12/06/19 12:06 08:13 22:16 POC Glucose 141 H 117 H 142 H 12/06/19 16:02 POC Glucose 162 H Hospitalist ROS - Review of Systems Cardiovascular: denies: chest pain, palpitations, orthopnea, paroxysmal noc. dyspnea, edema, light headedness, other Gastrointestinal: denies: nausea, vomiting, abdominal pain, diarrhea, constipation, melena, hematochezia, other Genitourinary: denies: dysuria, frequency, incontinence, hematuria, retention, other - Medication Medications: Active Medications Generic Name Dose Route Start Last Admin Trade Name Freq PRN Reason Stop Dose Admin Acetaminophen 650 mg 12/05/19 09:32 12/07/19 12:06 Tylenol PO 650 mg Q6H PRN Administration Pain Albuterol Sulfate 2 puff 11/30/19 19:00 12/07/19 12:47 Proventil Hfa INH 2 puff [id number] ENZO Administration Amiodarone HCl 400 mg 12/02/19 21:00 12/07/19 08:25 Cordarone PO 12/08/19 23:59 400 mg BID ENZO Administration Cefdinir 300 mg 12/03/19 21:00 12/07/19 08:25 Omnicef PO 12/08/19 21:01 300 mg BID ENZO Administration Digoxin 0.25 mg 11/30/19 09:00 12/07/19 08:24 Lanoxin PO 0.25 mg DAILY ENZO Administration Enoxaparin Sodium 70 mg 11/27/19 21:00 12/07/19 08:24 Lovenox SC 70 mg 0900,2100 ENZO Administration Famotidine 20 mg 12/02/19 21:00 12/07/19 08:25 Pepcid PO 20 mg BID ENZO Administration Finasteride 5 mg 11/28/19 09:00 12/07/19 08:25 Proscar PO 5 mg DAILY ENZO Administration Insulin Human Lispro 0 units 11/29/19 09:41 12/02/19 18:09 Humalog SC 3 unit .MILD SLIDING SCALE PRN Administration Mild Correctional Scale Metoprolol Tartrate 12.5 mg 11/29/19 21:00 12/07/19 08:24 Lopressor PO 12.5 mg BID ENZO Administration Prednisone 20 mg 12/03/19 08:00 12/07/19 08:24 Prednisone PO 20 mg QAM-WM ENZO Administration Quetiapine Fumarate 200 mg 11/27/19 21:00 12/06/19 20:56 Seroquel PO 200 mg HS ENZO Administration Sodium Chloride 10 ml 11/30/19 21:00 12/07/19 08:25 Flush - Normal Saline IVF 10 ml Q12HR ENZO Administration Tamsulosin HCl 0.4 mg 11/28/19 09:00 12/07/19 08:24 Flomax PO 0.4 mg DAILY ENZO Administration - Exam Heart: negative: RRR, no murmur, no gallops, no rubs, normal peripheral pulses, irregular, diminshed peripheral pulses, murmur present, II/IV, III/IV Respiratory: negative: CTAB, no wheezes, no rales, no ronchi, normal chest expansion, no tachypnea, normal percussion, rales, rhonchi, tachypneic, wheezes Gastrointestinal: negative: soft, non-tender, non-distended, normal bowel sounds , no palpable masses, no hepatomegaly, no splenomegaly, no bruit, no guarding, no rigidity, tender to palpation, distended, diminished bowl sounds, voluntary guarding Extremities: 1+ LE edema Hosp A/P (1) Paraphimosis Code(s): N47.2 - PARAPHIMOSIS Status: Acute (2) Acute pneumothorax Code(s): J93.83 - OTHER PNEUMOTHORAX Status: Acute - Plan Patient admitted as a transfer from [facility] on account of covid 19 pneumonia and pneumothorax with chest tube. Currently extubated and doing well. He has been out of the unit for 2 days now. Patient generally stable -Acute hypoxic respiratory failureintubated Secondary to covid pneumonia and pneumothorax Extubated a day ago doing generally well Pulmonology following Possible transfer for ICU tomorrow. -Covid-19 pneumonia Resolvingcontinue management Repeat COVID test set indeterminate result. Patient still on contact precautionsID contracted. Pulmonary input appreciated -Left pneumothorax Consulting cardiothoracic surgery to manage chest tube Pulmonology is on board Mild encephalopathy Etiology unclearimproved We will check B12 TSH folic acid and phosphorus. Replace as indicated. This may be possibly deliriumthe night oriented and reduce irritation Hyperglycemia Likely secondary to steroids We will continue on low correctional dose insulin Close glucose monitoring -Afib Now in sinus rhythm Continue p.o. digoxin and metoprolol and amiodarone Full dose Lovenox for stroke prophylaxisplan to switch to Eliquis as pneumothorax resolved Cardiology signed off Schizophrenia Continue Seroquel BPH Continue tamsulosin and finasteride VT prophylaxisLovenox therapeutic Dispositionpending improvement Peripheral edema We will try PRN Lasix Monitor electrolytes VT prophylaxis therapeutic: Lovenox full dose will change to eliquis. 12/04 pt has paraphimosis he is able to urinate will monitor. will add labs today. if pt paraphimosis worsens will get urology. pt has no pain. 12/05 will consult urology, he still has no pain nor any issues with urinating. will continue current meds. waiting for placement. will change AC to eliquis. 12/06 pt last night had a recurrent pneumothorax. He had a chest tube placed again to his left lung. His paraphimosis was reduced. Appreciate urology's input. WILL NEED TO BE CAREFUL IF PT NEEDS REINSERTION OF PELAYO CATH SINCE HE IS NOT CIRCUMCISED.
--- NOTE | 2019-12-07 15:58 | PDOC.OP ---
Operative Note - Operative Note Operative Note: DATE OF PROCEDURE: Number 2019 SURGEON: Amos Talavera MD DIAGNOSIS: Left pneumothorax PROCEDURE: Left tube thoracostomy INDICATIONS: 58-year-old male with recurrent left pneumothorax. PROCEDURE IN DETAIL: After obtaining verbal consent, the patient was positioned supine. A timeout was performed prior to beginning the procedure. The area overlying the left hemithorax was prepared and draped in usual fashion. Local anesthesia was administered. An incision was made, and the skin dissected with scissors. The hemithorax was entered over the left fourth rib. A 20 Salvadorean tube thoracostomy was placed apical posterior, was sutured into place and connected to a Pleur- evac. Follow-up x-ray demonstrated significant improvement in the pneumothorax. COMPLICATIONS: None Chest tube: 20F
--- NOTE | 2019-12-07 16:03 | PDOC.CONS ---
- Consultation Encounter Date: 12/07/19 Encounter Time: 02:15 CHIEF COMPLAINT: Recurrent left pneumothorax HISTORY OF PRESENT ILLNESS: 58-year-old male who was initially admitted to the [facility] with COVID pneumonia. He had developed a left pneumothorax and had a Garland catheter placed with improvement. He was transferred to the [facility] for intensive care unit management. He was subsequently extubated and per report, his left chest tube was inadvertently discontinued. He developed a large left- sided pneumothorax that was symptomatic. Surgery was consulted for emergent placement of a left-sided chest tube. REVIEW OF SYSTEMS: Not obtained due to urgent nature of consultation PAST MEDICAL HISTORY: Unable to obtain PAST SURGICAL HISTORY: Left tube thoracostomy FAMILY HISTORY: Noncontributory SOCIAL HISTORY Able to obtain ALLERGIES: No known drug allergies PHYSICAL EXAM: Vital Signs: Vital signs stable. SPO2 90% on high flow nasal cannula General: Alert and oriented, mild to moderate distress. Appears cachectic ENT: Sclera anicteric, pupils equal and reactive, mucous membranes moist. Poor dentition Neck: No jugular venous distention, trachea midline Cardiovascular: Regular rate and rhythm Pulmonary: Coarse breath sounds on the right. Notably diminished breath sounds on the left. Abdominal: Soft, nondistended, nontender Genitourinary: Normal anatomy Rectal: Deferred Integument: No abnormal rashes or lesions Musculoskeletal: No gross deformities or edema, normal range of motion LABORATORY: [ ] IMAGING: Chest x-ray reviewed as well as radials interpretation. Demonstrates large left pneumothorax with no evidence of tension ASSESSMENT: 58-year-old male with large left pneumothorax. PLAN: Left tube thoracostomy placed emergently. See procedure note for details Follow-up later this morning show significant clinical improvement with SPO2 98 % on 2 L. Follow-up chest x-ray shows minimal residual pneumothorax No air leak noted on examination.
[2019-12-07] MEDS: HumaLOG 300 UNITS/3 ML VIAL SC PRN (17:27)
[2019-12-08] MEDS: Albuterol 200 PUFF (6.7GM INHALER) INH SCH ×4 (02:31→17:57)
[2019-12-08 03:41] LABS: #Lymphocytes 0.7 thou/uL (1.20-3.40); #Monocytes 0.4 thou/uL (0.11-0.59); #Neutrophils 5.8 thou/uL (1.40-6.50); %Basophils 0.4 % (0.0-1.0); %Eosinophils 0.4 % (0.0-10.0); %Lymphocytes 9.9 % (21.0-51.0); %Monocytes 5.3 % (0.0-10.0); %Neutrophils 83.9 % (42.0-75.0); Hemoglobin 5.4 g/dL (14.0-18.0); Mean Corpuscular HGB CONC 33.2 g/dL (32.0-36.0); Mean Corpuscular Hemoglobin 33.6 pg (27.0-31.0); Platelet Count 157 thou/uL (130-400); RBC Distribution Width 13.6 % (11.5-14.5); Red Blood Cell (RBC) Count 1.61 mill/uL (4.70-6.10); White Blood Cell (WBC) Count 6.9 thou/uL (4.8-10.8)
[2019-12-08 03:49] LABS: Anion Gap 8 mmol/L (10-20); BUN (Urea Nitrogen) 19 mg/dL (8.4-25.7); Calc. Creatinine Clearance 153 mL/min (70-130); Calcium 6.7 mg/dL (7.8-10.44); Carbon Dioxide 25 mmol/L (22-29); Chloride 103 mmol/L (98-107); Estimated GFR-MDRD Greater than 90; Glucose 109 mg/dL (70-105); Potassium 3.6 mmol/L (3.5-5.1); Sodium 132 mmol/L (136-145)
[2019-12-08] MEDS: Enoxaparin Sodium 80 MG/0.8 ML SYRINGE SC SCH ×2 (08:41→09:25)
[2019-12-08] MEDS: Digoxin 0.25 MG TAB PO SCH (08:42)
[2019-12-08] MEDS: Famotidine 20 MG TAB PO SCH ×2 (08:42→21:03)
[2019-12-08] MEDS: Amiodarone 200 MG TAB PO SCH ×2 (08:43→21:04)
[2019-12-08] MEDS: Cefdinir 300 MG CAP PO SCH ×2 (08:43→21:04)
[2019-12-08] MEDS: Tamsulosin HCl 0.4 MG CAP PO SCH (08:44)
[2019-12-08] MEDS: predniSONE 20 MG TAB PO SCH (08:44)
[2019-12-08] MEDS: Metoprolol Tartrate 25 MG TAB PO SCH ×2 (08:44→21:04)
[2019-12-08] MEDS: Finasteride 5 MG TAB PO SCH (08:44)
--- NOTE | 2019-12-08 09:43 | PRG ---
DATE OF SERVICE: 12/08/2019 SUBJECTIVE: Apparently, his chest tube dislodged by itself General Surgery was called in to put a chest tube in. OBJECTIVE: VITAL SIGNS: Temperature 98, pulse 105, respirations 20, blood pressure 110/63. CHEST: Decreased breath sounds. No wheezing. CARDIAC: Normal S1 and S2. No gallops. ABDOMEN: No masses. LABORATORY DATA: His hemoglobin is low at 5 and 16. His lytes are normal. ASSESSMENT: 1. Real positive pneumonia. 2. Spontaneous pneumothorax. 3. Severe deconditioning. 4. Bipolar. 5. Supraventricular tachycardia, he is still on high-dose Lovenox. PLAN: Continue empiric antibiotic and steroids. We are going to re-swab him for eventually placement. We will follow. Job ID: [id number]
[2019-12-08] MEDS ORDERED: Bisacodyl 5 MG TAB PO SCH (12:30)
[2019-12-08] MEDS ORDERED: Polyethylene Glycol 3350 17 GM Packet PO SCH (12:30)
[2019-12-08] MEDS: HumaLOG 300 UNITS/3 ML VIAL SC PRN (12:49)
[2019-12-08 16:57] LABS: Hemoglobin 7.9 g/dL (14.0-18.0)
--- NOTE | 2019-12-08 17:01 | PDOC.HOSPP ---
- Subjective Encounter Date: 12/08/19 Encounter Time: 11:15 Subjective: pt up in bed no complains - Objective Vital Signs & Weight: Vital Signs (12 hours) Temp Pulse Pulse Resp Pulse Ox 12/08/19 12:00 97.8 F 12/08/19 09:00 98.7 F 77 20 12/08/19 08:42 104 H 12/08/19 08:00 98.7 F 98 12/08/19 06:20 98.7 F 20 99 12/08/19 06:04 98.7 F 99 Weight Admit Weight 146 lb 9.718 oz Weight 160 lb 1.6 oz Most Recent Monitor Data Heart Rate from ECG 74 NIBP 109/69 NIBP BP-Mean 82 Respiration from ECG 29 SpO2 100 I&O: 12/07/19 12/08/19 12/09/19 06:59 06:59 06:59 Intake Total 500 1450 350 Output Total 450 180 Balance 50 1270 350 Result Diagrams: 12/08/19 16:35 12/08/19 03:06 Additional Labs: Accuchecks 12/08/19 12/08/19 12/07/19 12:33 05:20 20:14 POC Glucose 213 H 129 H 222 H 12/07/19 12/04/19 12/04/19 18:06 22:13 17:03 POC Glucose 189 H 129 H 156 H Hospitalist ROS - Review of Systems Cardiovascular: denies: chest pain, palpitations, orthopnea, paroxysmal noc. dyspnea, edema, light headedness, other Gastrointestinal: denies: nausea, vomiting, abdominal pain, diarrhea, constipation, melena, hematochezia, other Genitourinary: denies: dysuria, frequency, incontinence, hematuria, retention, other - Medication Medications: Active Medications Generic Name Dose Route Start Last Admin Trade Name Freq PRN Reason Stop Dose Admin Acetaminophen 650 mg 12/05/19 09:32 12/07/19 12:06 Tylenol PO 650 mg Q6H PRN Administration Pain Albuterol Sulfate 2 puff 11/30/19 19:00 12/08/19 12:48 Proventil Hfa INH 2 puff [id number] ENZO Administration Amiodarone HCl 400 mg 12/02/19 21:00 12/08/19 08:43 Cordarone PO 12/08/19 23:59 400 mg BID ENZO Administration Cefdinir 300 mg 12/03/19 21:00 12/08/19 08:43 Omnicef PO 12/08/19 21:01 300 mg BID ENZO Administration Digoxin 0.25 mg 11/30/19 09:00 12/08/19 08:42 Lanoxin PO 0.25 mg DAILY ENZO Administration Famotidine 20 mg 12/02/19 21:00 12/08/19 08:42 Pepcid PO 20 mg BID ENZO Administration Finasteride 5 mg 11/28/19 09:00 12/08/19 08:44 Proscar PO 5 mg DAILY ENZO Administration Insulin Human Lispro 0 units 11/29/19 09:41 12/08/19 12:49 Humalog SC 3 unit .MILD SLIDING SCALE PRN Administration Mild Correctional Scale Metoprolol Tartrate 12.5 mg 11/29/19 21:00 12/08/19 08:44 Lopressor PO 12.5 mg BID ENZO Administration Prednisone 20 mg 12/03/19 08:00 12/08/19 08:44 Prednisone PO 20 mg QAM-WM ENZO Administration Quetiapine Fumarate 200 mg 11/27/19 21:00 12/07/19 20:02 Seroquel PO 200 mg HS ENZO Administration Sodium Chloride 10 ml 11/30/19 21:00 12/08/19 08:44 Flush - Normal Saline IVF 10 ml Q12HR ENZO Administration Tamsulosin HCl 0.4 mg 11/28/19 09:00 12/08/19 08:44 Flomax PO 0.4 mg DAILY ENZO Administration - Exam Heart: negative: RRR, no murmur, no gallops, no rubs, normal peripheral pulses, irregular, diminshed peripheral pulses, murmur present, II/IV, III/IV Respiratory: negative: CTAB, no wheezes, no rales, no ronchi, normal chest expansion, no tachypnea, normal percussion, rales, rhonchi, tachypneic, wheezes Gastrointestinal: negative: soft, non-tender, non-distended, normal bowel sounds , no palpable masses, no hepatomegaly, no splenomegaly, no bruit, no guarding, no rigidity, tender to palpation, distended, diminished bowl sounds, voluntary guarding Extremities: 2+ LE edema Hosp A/P (1) Paraphimosis Code(s): N47.2 - PARAPHIMOSIS Status: Acute (2) Acute pneumothorax Code(s): J93.83 - OTHER PNEUMOTHORAX Status: Acute - Plan Patient admitted as a transfer from [facility] on account of covid 19 pneumonia and pneumothorax with chest tube. Currently extubated and doing well. He has been out of the unit for 2 days now. Patient generally stable -Acute hypoxic respiratory failureintubated Secondary to covid pneumonia and pneumothorax Extubated a day ago doing generally well Pulmonology following Possible transfer for ICU tomorrow. -Covid-19 pneumonia Resolvingcontinue management Repeat COVID test set indeterminate result. Patient still on contact precautionsID contracted. Pulmonary input appreciated -Left pneumothorax Consulting cardiothoracic surgery to manage chest tube Pulmonology is on board Mild encephalopathy Etiology unclearimproved We will check B12 TSH folic acid and phosphorus. Replace as indicated. This may be possibly deliriumthe night oriented and reduce irritation Hyperglycemia Likely secondary to steroids We will continue on low correctional dose insulin Close glucose monitoring -Afib Now in sinus rhythm Continue p.o. digoxin and metoprolol and amiodarone Full dose Lovenox for stroke prophylaxisplan to switch to Eliquis as pneumothorax resolved Cardiology signed off Schizophrenia Continue Seroquel BPH Continue tamsulosin and finasteride VT prophylaxisLovenox therapeutic Dispositionpending improvement Peripheral edema We will try PRN Lasix Monitor electrolytes VT prophylaxis therapeutic: Lovenox full dose will change to eliquis. 12/04 pt has paraphimosis he is able to urinate will monitor. will add labs today. if pt paraphimosis worsens will get urology. pt has no pain. 12/05 will consult urology, he still has no pain nor any issues with urinating. will continue current meds. waiting for placement. will change AC to eliquis. 12/06 pt last night had a recurrent pneumothorax. He had a chest tube placed again to his left lung. His paraphimosis was reduced. Appreciate urology's input. WILL NEED TO BE CAREFUL IF PT NEEDS REINSERTION OF PELAYO CATH SINCE HE IS NOT CIRCUMCISED. 12/07 pt's hh dropped will stop lovenox and was transfused 2untis of blood. will get cxr abdullahi. He still has his chest tube.
[2019-12-08 17:14] LABS: HCV log10 3.904 (.); Hep C PCR-Quant 8020 IU/mL (.)
--- NOTE | 2019-12-08 17:24 | PDOC.CPN ---
- Subjective Date: 12/08/19 Time: 17:20 Interval history: He has had issues with recurrent pneumothorax. - Objective Allergies/Adverse Reactions: Allergies Allergy/AdvReac Type Severity Reaction Status Date / Time No Known Allergies Allergy Unverified 11/23/19 10:51 Visit Medications: Current Medications Acetaminophen (Tylenol) 650 mg PO Q6H PRN PRN Reason: Pain Last Admin: 12/07/19 12:06 Dose: 650 mg Albuterol Sulfate (Proventil Hfa) 2 puff INH N1AT-PE [facility] Last Admin: 12/08/19 12:48 Dose: 2 puff Amiodarone HCl (Cordarone) 400 mg PO BID [facility] Stop: 12/08/19 23:59 Last Admin: 12/08/19 08:43 Dose: 400 mg Amiodarone HCl (Cordarone) 200 mg PO DAILY [facility] Cefdinir (Omnicef) 300 mg PO BID [facility] Stop: 12/08/19 21:01 Last Admin: 12/08/19 08:43 Dose: 300 mg Dextrose/Water (Dextrose 50%) 25 gm SLOW IVP PRN PRN PRN Reason: Hypoglycemia Digoxin (Lanoxin) 0.25 mg PO DAILY [facility] Last Admin: 12/08/19 08:42 Dose: 0.25 mg Famotidine (Pepcid) 20 mg PO BID [facility] Last Admin: 12/08/19 08:42 Dose: 20 mg Finasteride (Proscar) 5 mg PO DAILY [facility] Last Admin: 12/08/19 08:44 Dose: 5 mg Glucagon (Glucagon) 1 mg IM PRN PRN PRN Reason: Hypoglycemia Dextrose/Water (D5w) 1,000 mls @ 0 mls/hr IV .Q0M PRN PRN Reason: Hypoglycemia Insulin Human Lispro (Humalog) 0 units SC .MILD SLIDING SCALE PRN PRN Reason: Mild Correctional Scale Last Admin: 12/08/19 12:49 Dose: 3 unit Metoprolol Tartrate (Lopressor) 12.5 mg PO BID [facility] Last Admin: 12/08/19 08:44 Dose: 12.5 mg Miscellaneous Medication (Electrolyte Replacement Protocol) 0 each FS ASDIR PRN ; Protocol PRN Reason: ELECTROLYTE REPLACEMENT Prednisone (Prednisone) 20 mg PO QAM-WM [facility] Last Admin: 12/08/19 08:44 Dose: 20 mg Quetiapine Fumarate (Seroquel) 200 mg PO HS [facility] Last Admin: 12/07/19 20:02 Dose: 200 mg Senna/Docusate Sodium (Senokot S) 1 tab PO BID [facility] Sodium Chloride (Flush - Normal Saline) 10 ml IVF Q12HR [facility] Last Admin: 12/08/19 08:44 Dose: 10 ml Sodium Chloride (Flush - Normal Saline) 10 ml IVF PRN PRN PRN Reason: Saline Flush Tamsulosin HCl (Flomax) 0.4 mg PO DAILY [facility] Last Admin: 12/08/19 08:44 Dose: 0.4 mg Vital Signs & Weight: Vital Signs Temp Pulse Pulse Resp Pulse Ox 12/08/19 12:00 97.8 F 12/08/19 09:00 98.7 F 77 20 12/08/19 08:42 104 H 12/08/19 08:00 98.7 F 98 12/08/19 06:20 98.7 F 20 99 12/08/19 06:04 98.7 F 99 Admit Weight 146 lb 9.718 oz Weight 160 lb 1.6 oz - Physical Exam General: other (Not done due to coivid 19 pneumonia.) - Labs Result Diagrams: 12/08/19 16:35 12/08/19 03:06 - Telemetry Sinus rhythms and dysrhythmias: sinus rhythm - Assessment/Plan Assessment/Plan: 1. Atrial fibrillation, rapid ventricular response. Remains in sinus. 2. COVID-19 pneumonia. 3. Pneumothorax, left. 4. Chads Vasc Score 1 (HTN) PLAN: - He has been in sinus since he converted. - Continue PO digoxin and metoprolol and off amiodarone. - I have been asked to decide what to do with anticoagulation. Currently his full dose lovenox is for both stroke prophylaxis from afib and for the possible hypercoagulable state with Covid 19. From the afib stand point this may be stopped if surgery for his pneumothorax is planned. His CHADs VASc score is only 1 for HTN and may be off full anticoagulation for Afib on the fpc and only do aspirin daily. 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 - Will follow.
[2019-12-08] MEDS: Acetaminophen 325 MG TAB PO PRN (17:57)
[2019-12-08 18:07] LABS: SARS-CoV-2 MS2 Positive; SARS-CoV-2 N Gene Negative; SARS-CoV-2 S Gene Negative; SARS-CoV-2 by NAA Not Detected (NotDetected); SARS-CoV-2 orf1ab Negative
[2019-12-08] MEDS: Senokot S 8.6-50 MG TAB PO SCH (21:04)
--- NOTE | 2019-12-09 07:44 | RAD ---
Portable frontal chest radiograph: 12/09/2019 COMPARISON: 12/07/2019 HISTORY: Shortness of breath, history of pneumothorax FINDINGS: Stable lateral left-sided chest tube. Stable right-sided vascular catheter. Coarse linear d ensity noted in both lung bases, nonspecific and unchanged. Blunting of bilateral costophrenic angle suggests small bilateral pleural effusions and/or pleural thickening. No discrete pneumothorax is seen on either side. IMPRESSION: No significant interval change.
--- NOTE | 2019-12-09 09:15 | PRG ---
DATE OF SERVICE: 12/09/2019 SUBJECTIVE: His repeat coronavirus test was negative. He is off isolation. Chest tube in place. Slight air leak. OBJECTIVE: VITAL SIGNS: Temperature 98, sats 100% on room air, blood pressure 143/74, respiratory rate 18. CHEST: Decreased breath sounds. No wheezing. CARDIAC: Normal S1 and S2. No gallops. ABDOMEN: No masses. IMPRESSION: Status post respiratory failure, spontaneous pneumothorax, SVT. PLAN: 1. Continue supportive care, PT. 2. Eventually placement. Job ID: [id number]
[2019-12-09] MEDS ORDERED: Aspirin 81 mg Enteric Coated Tablet PO SCH ×2 (09:22→09:30)
[2019-12-09] MEDS: Albuterol 200 PUFF (6.7GM INHALER) INH SCH ×4 (10:09→18:47)
[2019-12-09] MEDS: Amiodarone 200 MG TAB PO SCH (10:10)
[2019-12-09] MEDS: predniSONE 20 MG TAB PO SCH (10:10)
[2019-12-09] MEDS: Finasteride 5 MG TAB PO SCH (10:10)
[2019-12-09] MEDS: Famotidine 20 MG TAB PO SCH ×2 (10:10→20:38)
[2019-12-09] MEDS: Digoxin 0.25 MG TAB PO SCH (10:10)
[2019-12-09] MEDS: Tamsulosin HCl 0.4 MG CAP PO SCH (10:11)
[2019-12-09] MEDS: Senokot S 8.6-50 MG TAB PO SCH ×2 (10:11→20:43)
[2019-12-09] MEDS: Metoprolol Tartrate 25 MG TAB PO SCH ×2 (10:11→20:38)
[2019-12-09 10:18] LABS: #Eosinphils 0.1 thou/uL (0.0-0.7); #Lymphocytes 0.7 thou/uL (1.20-3.40); #Monocytes 0.4 thou/uL (0.11-0.59); #Neutrophils 7.5 thou/uL (1.40-6.50); %Basophils 0.3 % (0.0-1.0); %Eosinophils 1.1 % (0.0-10.0); %Lymphocytes 7.9 % (21.0-51.0); %Monocytes 4.5 % (0.0-10.0); %Neutrophils 86.2 % (42.0-75.0); Hemoglobin 7.4 g/dL (14.0-18.0); Mean Corpuscular HGB CONC 34.4 g/dL (32.0-36.0); Mean Corpuscular Hemoglobin 34.4 pg (27.0-31.0); Mean Platelet Volume 7.1 fL (7.4-10.4); Platelet Count 162 thou/uL (130-400); RBC Distribution Width 13.5 % (11.5-14.5); Red Blood Cell (RBC) Count 2.16 mill/uL (4.70-6.10); White Blood Cell (WBC) Count 8.7 thou/uL (4.8-10.8)
[2019-12-09 10:30] LABS: Anion Gap 9 mmol/L (10-20); BUN (Urea Nitrogen) 14 mg/dL (8.4-25.7); Calc. Creatinine Clearance 154 mL/min (70-130); Carbon Dioxide 27 mmol/L (22-29); Chloride 103 mmol/L (98-107); Estimated GFR-MDRD Greater than 90; Glucose 99 mg/dL (70-105); Potassium 3.5 mmol/L (3.5-5.1); Sodium 135 mmol/L (136-145)
[2019-12-09] MEDS ORDERED: Potassium Chloride 20 MEQ TAB PO SCH (12:30)
[2019-12-09 14:34] VITALS: BMI 23.6
--- NOTE | 2019-12-09 16:02 | PDOC.HOSPP ---
- Subjective Encounter Date: 12/09/19 Encounter Time: 11:30 Subjective: pt up in bed no complains - Objective Vital Signs & Weight: Vital Signs (12 hours) Temp Pulse Pulse Ox 12/09/19 15:00 98.9 F 12/09/19 12:00 98.6 F 12/09/19 10:10 75 12/09/19 07:49 100 12/09/19 07:39 98.0 F Weight Admit Weight 146 lb 9.718 oz Weight 160 lb 3.2 oz Most Recent Monitor Data Heart Rate from ECG 77 NIBP 118/74 NIBP BP-Mean 88 Respiration from ECG 23 SpO2 100 I&O: 12/08/19 12/09/19 12/10/19 06:59 06:59 06:59 Intake Total 1450 2650 Output Total 180 350 0 Balance 1270 2300 0 Result Diagrams: 12/09/19 10:00 12/09/19 10:00 Additional Labs: Accuchecks 12/09/19 12/08/19 06:58 18:50 POC Glucose 121 H 138 H Hospitalist ROS - Review of Systems Respiratory: denies: cough, dry, shortness of breath, hemoptysis, SOB with excertion, pleuritic pain, sputum, wheezing, other Cardiovascular: denies: chest pain, palpitations, orthopnea, paroxysmal noc. dyspnea, edema, light headedness, other Gastrointestinal: denies: nausea, vomiting, abdominal pain, diarrhea, constipation, melena, hematochezia, other - Medication Medications: Active Medications Generic Name Dose Route Start Last Admin Trade Name Freq PRN Reason Stop Dose Admin Acetaminophen 650 mg 12/05/19 09:32 12/08/19 17:57 Tylenol PO 650 mg Q6H PRN Administration Pain Albuterol Sulfate 2 puff 11/30/19 19:00 12/09/19 15:09 Proventil Hfa INH 2 puff [id number] [facility] Administration Amiodarone HCl 200 mg 12/09/19 09:00 12/09/19 10:10 Cordarone PO 200 mg DAILY [facility] Administration Digoxin 0.25 mg 11/30/19 09:00 12/09/19 10:10 Lanoxin PO 0.25 mg DAILY [facility] Administration Famotidine 20 mg 12/02/19 21:00 12/09/19 10:10 Pepcid PO 20 mg BID [facility] Administration Finasteride 5 mg 11/28/19 09:00 12/09/19 10:10 Proscar PO 5 mg DAILY [facility] Administration Insulin Human Lispro 0 units 11/29/19 09:41 12/08/19 12:49 Humalog SC 3 unit .MILD SLIDING SCALE PRN Administration Mild Correctional Scale Metoprolol Tartrate 12.5 mg 11/29/19 21:00 12/09/19 10:11 Lopressor PO 12.5 mg BID [facility] Administration Potassium Chloride 40 meq 12/09/19 12:30 12/09/19 15:09 K-Dur PO 12/09/19 16:00 40 meq NOW [facility] Administration Prednisone 20 mg 12/03/19 08:00 12/09/19 10:10 Prednisone PO 20 mg QAM-WM [facility] Administration Quetiapine Fumarate 200 mg 11/27/19 21:00 12/08/19 21:04 Seroquel PO 200 mg HS [facility] Administration Senna/Docusate Sodium 1 tab 12/08/19 21:00 12/09/19 10:11 Senokot S PO Not Given BID [facility] Sodium Chloride 10 ml 11/30/19 21:00 12/09/19 10:11 Flush - Normal Saline IVF 10 ml Q12HR [facility] Administration Tamsulosin HCl 0.4 mg 11/28/19 09:00 12/09/19 10:11 Flomax PO 0.4 mg DAILY [facility] Administration - Exam Neck: negative: supple, symmetric, no JVD, no thyromegaly, no lymphadenopathy, no carotid bruit, JVD Heart: negative: RRR, no murmur, no gallops, no rubs, normal peripheral pulses, irregular, diminshed peripheral pulses, murmur present, II/IV, III/IV Respiratory: negative: CTAB, no wheezes, no rales, no ronchi, normal chest expansion, no tachypnea, normal percussion, rales, rhonchi, tachypneic, wheezes Gastrointestinal: negative: soft, non-tender, non-distended, normal bowel sounds , no palpable masses, no hepatomegaly, no splenomegaly, no bruit, no guarding, no rigidity, tender to palpation, distended, diminished bowl sounds, voluntary guarding Hosp A/P (1) Paraphimosis Code(s): N47.2 - PARAPHIMOSIS Status: Acute (2) Acute pneumothorax Code(s): J93.83 - OTHER PNEUMOTHORAX Status: Acute - Plan Patient admitted as a transfer from [facility] on account of covid 19 pneumonia and pneumothorax with chest tube. Currently extubated and doing well. He has been out of the unit for 2 days now. Patient generally stable -Acute hypoxic respiratory failureintubated Secondary to covid pneumonia and pneumothorax Extubated a day ago doing generally well Pulmonology following Possible transfer for ICU tomorrow. -Covid-19 pneumonia Resolvingcontinue management Repeat COVID test set indeterminate result. Patient still on contact precautionsID contracted. Pulmonary input appreciated -Left pneumothorax Consulting cardiothoracic surgery to manage chest tube Pulmonology is on board Mild encephalopathy Etiology unclearimproved We will check B12 TSH folic acid and phosphorus. Replace as indicated. This may be possibly deliriumthe night oriented and reduce irritation Hyperglycemia Likely secondary to steroids We will continue on low correctional dose insulin Close glucose monitoring -Afib Now in sinus rhythm Continue p.o. digoxin and metoprolol and amiodarone Full dose Lovenox for stroke prophylaxisplan to switch to Eliquis as pneumothorax resolved Cardiology signed off Schizophrenia Continue Seroquel BPH Continue tamsulosin and finasteride VT prophylaxisLovenox therapeutic Dispositionpending improvement Peripheral edema We will try PRN Lasix Monitor electrolytes VT prophylaxis therapeutic: Lovenox full dose will change to eliquis. 12/04 pt has paraphimosis he is able to urinate will monitor. will add labs today. if pt paraphimosis worsens will get urology. pt has no pain. 12/05 will consult urology, he still has no pain nor any issues with urinating. will continue current meds. waiting for placement. will change AC to eliquis. 12/06 pt last night had a recurrent pneumothorax. He had a chest tube placed again to his left lung. His paraphimosis was reduced. Appreciate urology's input. WILL NEED TO BE CAREFUL IF PT NEEDS REINSERTION OF PELAYO CATH SINCE HE IS NOT CIRCUMCISED. 12/07 pt's hh dropped will stop lovenox and was transfused 2untis of blood. will get cxr abdullahi. He still has his chest tube. 12/08 hh is stable, pt cxr appears stable. Chest tube to be removed when ok with surgery. anna hold Ac for now. Pt is on asa for afib. will add scd. His hh dropped with lovenox. will order ct abd/pel
[2019-12-09] MEDS: HumaLOG 300 UNITS/3 ML VIAL SC PRN (17:39)
--- NOTE | 2019-12-09 18:21 | PRG ---
DATE OF SERVICE: 12/09/2019 SUBJECTIVE: The patient is back in tele. He knows he is in the hospital and is grimacing a bit, but denied that he was having pain and just did not want to eat his dinner, did not like the nature of it. He still has a chest tube in place and denies any cough. No dyspnea. No abdominal pain. OBJECTIVE: VITAL SINGS: His temperature has been normal and O2 saturations were 96% on room air. LUNGS: Clear. HEART: S1-S2 regular rate. ABDOMEN: Soft, not distended. EXTREMITIES: Moves extremities equally. LABORATORY DATA: White cell count 8.7, hemoglobin 7.4, and platelets are 162. Creatinine 0.53. His hepatitis C antibody was positive and he has hep C Ultra Quant of 8020, so he does have chronic hepatitis C. Repeat COVID PCR was not detected on December 07. ASSESSMENT AND DISCUSSION: Hypertension, schizophrenia, COVID pneumonia, strep anginosus bacteremia, renal insufficiency, which has improved, spontaneous pneumothorax. He has mild COVID infection and it should be beyond the threshold for discontinuing isolation precautions at this point in time, he will need treatment for his chronic hepatitis C in the outpatient setting. The strep anginosus bacteremia has been treated as respiratory tract infection and I think he is off antimicrobial therapy at this point for that. Job ID: [id number]
--- NOTE | 2019-12-09 18:35 | PDOC.CPN ---
- Subjective Date: 12/09/19 Time: 18:32 Interval history: Remains in sinus. - Objective Allergies/Adverse Reactions: Allergies Allergy/AdvReac Type Severity Reaction Status Date / Time No Known Allergies Allergy Unverified 11/23/19 10:51 Visit Medications: Current Medications Acetaminophen (Tylenol) 650 mg PO Q6H PRN PRN Reason: Pain Last Admin: 12/08/19 17:57 Dose: 650 mg Albuterol Sulfate (Proventil Hfa) 2 puff INH [id number] [facility] Last Admin: 12/09/19 15:09 Dose: 2 puff Amiodarone HCl (Cordarone) 200 mg PO DAILY [facility] Last Admin: 12/09/19 10:10 Dose: 200 mg Aspirin (Ecotrin) 81 mg PO DAILY [facility] Dextrose/Water (Dextrose 50%) 25 gm SLOW IVP PRN PRN PRN Reason: Hypoglycemia Digoxin (Lanoxin) 0.25 mg PO DAILY [facility] Last Admin: 12/09/19 10:10 Dose: 0.25 mg Famotidine (Pepcid) 20 mg PO BID [facility] Last Admin: 12/09/19 10:10 Dose: 20 mg Finasteride (Proscar) 5 mg PO DAILY [facility] Last Admin: 12/09/19 10:10 Dose: 5 mg Glucagon (Glucagon) 1 mg IM PRN PRN PRN Reason: Hypoglycemia Dextrose/Water (D5w) 1,000 mls @ 0 mls/hr IV .Q0M PRN PRN Reason: Hypoglycemia Insulin Human Lispro (Humalog) 0 units SC .MILD SLIDING SCALE PRN PRN Reason: Mild Correctional Scale Last Admin: 12/09/19 17:39 Dose: 2 unit Metoprolol Tartrate (Lopressor) 12.5 mg PO BID [facility] Last Admin: 12/09/19 10:11 Dose: 12.5 mg Miscellaneous Medication (Electrolyte Replacement Protocol) 0 each FS ASDIR PRN ; Protocol PRN Reason: ELECTROLYTE REPLACEMENT Prednisone (Prednisone) 20 mg PO QAM-WM [facility] Last Admin: 12/09/19 10:10 Dose: 20 mg Quetiapine Fumarate (Seroquel) 200 mg PO HS [facility] Last Admin: 12/08/19 21:04 Dose: 200 mg Senna/Docusate Sodium (Senokot S) 1 tab PO BID [facility] Last Admin: 09/09/20 10:11 Dose: Not Given Sodium Chloride (Flush - Normal Saline) 10 ml IVF Q12HR [facility] Last Admin: 12/09/19 10:11 Dose: 10 ml Sodium Chloride (Flush - Normal Saline) 10 ml IVF PRN PRN PRN Reason: Saline Flush Tamsulosin HCl (Flomax) 0.4 mg PO DAILY [facility] Last Admin: 12/09/19 10:11 Dose: 0.4 mg Vital Signs & Weight: Vital Signs Temp Pulse Pulse Resp BP BP Pulse Ox 12/09/19 15:45 98.3 F 75 24 H 117/72 96 12/09/19 15:00 98.9 F 12/09/19 12:00 98.6 F 12/09/19 11:41 80 114/70 12/09/19 10:10 75 12/09/19 07:49 100 12/09/19 07:39 98.0 F Admit Weight 146 lb 9.718 oz Weight 160 lb 3.2 oz - Physical Exam General: other (Not done due to covid 19 infection.) - Labs Result Diagrams: 12/09/19 10:00 12/09/19 10:00 - Telemetry Sinus rhythms and dysrhythmias: sinus rhythm - Assessment/Plan Assessment/Plan: 1. Atrial fibrillation, rapid ventricular response. Remains in sinus. 2. COVID-19 pneumonia. 3. Pneumothorax, left. 4. Chads Vasc Score 1 (HTN) PLAN: - Remains in sinus. - Continue PO digoxin and metoprolol and off amiodarone. - CHADS VASc score of 1. Aspirin alone for stroke prophylaxis. - Full dose Lovenox per pulmonary critical care in setting of Covid 19 infection. - Will sign off. Please call with any question.
--- NOTE | 2019-12-09 18:43 | CT ---
CT ABDOMEN NONCONTRAST CT PELVIS NONCONTRAST: (Urolithiasis protocol) DATE: 12/09/2019 HISTORY: 58-year-old male with anemia COMPARISON: None TECHNIQUE: IV injection of iodinated contrast media: None Oral contrast media: None FINDINGS: Other than for urolithiasis, the lack of IV and oral contrast limits the evaluation. Severe degenerative disc disease at L4-5 and L5-S1. Severe bilateral neural foraminal stenosis at L5- S1. A large number of small and moderate sized air cysts at the bases of the bilateral lower lobes and ri ght middle lobe. Some of the air cysts are surrounded by consolidations with air bronchograms, especially at the left lower lobe. Small to moderate-sized right pleural effusion. Small left pleural effusion. Small volume of free intraperitoneal fluid throughout the abdominal cavity, and a small volume in the presacral space. Distended urinary bladder. Diffuse edema throughout the subcutaneous fat surrounding the abdomen and pelvis. Contracted gallbladder with thickened chun and a few small calcified gallstones. No hydronephrosis. Lack of visceral fat and lack of IV and oral contrast makes it difficult to evaluate contents of abdo penny cavity, especially bowel. There is no small bowel dilation. Moderate amount of colonic stool. No abdominal aortic aneurysm. No splenomegaly. Difficult to evaluate pancreas. No adrenal nodule. No definite renal or bladder calculus. IMPRESSION: 1) innumerable air cystic lesions at bilateral lung bases surrounded by left lower lobe consolidation and bilateral pleural effusions, right greater than left. Some of the air cysts also appear to have fluid as well as air. Possibility of infectious process. 2) small volume of ascites 3) anasarca 4) no obstructive uropathy 5) severe lower lumbar spondylosis
[2019-12-09] MEDS: Acetaminophen 325 MG TAB PO PRN (20:39)
[2019-12-10] MEDS: Albuterol 200 PUFF (6.7GM INHALER) INH SCH ×4 (00:42→18:28)
[2019-12-10] MEDS: Aspirin 81 mg Enteric Coated Tablet PO SCH (08:01)
[2019-12-10] MEDS: Digoxin 0.25 MG TAB PO SCH (08:01)
[2019-12-10] MEDS: Amiodarone 200 MG TAB PO SCH (08:08)
[2019-12-10] MEDS: Metoprolol Tartrate 25 MG TAB PO SCH ×2 (08:08→22:35)
[2019-12-10] MEDS: Senokot S 8.6-50 MG TAB PO SCH ×2 (08:08→22:35)
[2019-12-10] MEDS: Tamsulosin HCl 0.4 MG CAP PO SCH (08:08)
[2019-12-10] MEDS: Famotidine 20 MG TAB PO SCH ×2 (08:09→22:35)
[2019-12-10] MEDS: predniSONE 20 MG TAB PO SCH ×2 (08:09→10:22)
[2019-12-10] MEDS: Finasteride 5 MG TAB PO SCH (08:09)
[2019-12-10 08:28] LABS: #Eosinphils 0.1 thou/uL (0.0-0.7); #Lymphocytes 0.7 thou/uL (1.20-3.40); #Monocytes 0.3 thou/uL (0.11-0.59); %Basophils 0.3 % (0.0-1.0); %Eosinophils 1.7 % (0.0-10.0); %Lymphocytes 9.4 % (21.0-51.0); %Monocytes 4.2 % (0.0-10.0); %Neutrophils 84.3 % (42.0-75.0); Hemoglobin 8.1 g/dL (14.0-18.0); Mean Corpuscular HGB CONC 32.6 g/dL (32.0-36.0); Mean Corpuscular Hemoglobin 33.3 pg (27.0-31.0); Mean Platelet Volume 7.5 fL (7.4-10.4); Platelet Count 159 thou/uL (130-400); Red Blood Cell (RBC) Count 2.43 mill/uL (4.70-6.10); White Blood Cell (WBC) Count 7.1 thou/uL (4.8-10.8)
--- NOTE | 2019-12-10 08:35 | RAD ---
CHEST 1 VIEW: INDICATION: History of chest tube placement. COMPARISON: Prior exam dated 12/09/2019. FINDINGS: Bilateral pleural effusions and bibasilar airspace disease persist. Patchy hazy opacity within the r ight upper lobe is similar appearing. Right subclavian central venous catheter is unchanged. Left-s ided thoracostomy tube is unchanged. Chest wall emphysema along the left aspect of the thorax is sim ilar-appearing. No pneumothorax is evident. IMPRESSION: Stable exam. POS: BH
--- NOTE | 2019-12-10 09:44 | PRG ---
DATE OF SERVICE: 12/10/2019 SUBJECTIVE: This morning, he is awake, alert, and responsive. His chest tube is off suction. OBJECTIVE: VIAL SIGNS: Temperature 97, pulse 77, respirations 20, saturations 96%, blood pressure 114/74. CHEST: Decreased breath sounds. No wheezing. CARDIAC: Normal S1 and S2. No gallop. ABDOMEN: No masses. LABORATORY DATA: His H and H are 8 and 24. White count is normal. IMPRESSION: 1. Status post spontaneous pneumothorax. 2. Real positive pneumonia, status post remdesivir, convalescent plasma, and steroids. 3. Supraventricular tachycardia, looks much improved. Once his chest tube has been removed, hopefully can be discharged home. PLAN: We will consider stopping daily lab on the patient. We will follow. Job ID: [id number] MTDD
--- NOTE | 2019-12-10 13:24 | PDOC.BPN ---
- Brief Progress Note Encounter Date: 12/10/19 Encounter Time: 09:30 Patient was seen and evaluated at bedside by Trauma team this morning during rounds. Patient reports he is feeling better. Patient then placed in supine position with left arm raised above head. Sutures around left-sided chest tube were removed. Patient was then instructed to inhale and exhale. Upon exhalation was instructed to hold his breath and at that time the chest tube was removed. Dressing was placed over wound and instructed nursing staff on dressing changes. Breath sounds clear bilaterally pre- and post- procedure. Patient tolerated procedure well.
--- NOTE | 2019-12-10 15:37 | PDOC.HOSPP ---
- Subjective Encounter Date: 12/10/19 Encounter Time: 09:00 Subjective: pt up in bed no complains - Objective Vital Signs & Weight: Vital Signs (12 hours) Temp Pulse Resp BP Pulse Ox 12/10/19 11:38 98.1 F 75 18 124/73 94 L 12/10/19 08:01 77 12/10/19 07:48 97.8 F 77 20 114/74 95 12/10/19 06:46 97 12/10/19 03:43 98.6 F 70 18 119/74 99 Weight Admit Weight 146 lb 9.718 oz Weight 153 lb 8.126 oz Most Recent Monitor Data Heart Rate from ECG 81 NIBP 109/73 NIBP BP-Mean 85 Respiration from ECG 22 SpO2 100 I&O: 12/09/19 12/10/19 12/11/19 06:59 06:59 06:59 Intake Total 2650 270 Output Total 350 240 Balance 2300 30 Result Diagrams: 12/10/19 08:09 12/09/19 10:00 Additional Labs: Accuchecks 12/10/19 12/10/19 12/09/19 10:39 05:48 20:22 POC Glucose 114 H 118 H 151 H 12/09/19 16:39 POC Glucose 183 H Hospitalist ROS - Review of Systems Cardiovascular: denies: chest pain, palpitations, orthopnea, paroxysmal noc. dyspnea, edema, light headedness, other Gastrointestinal: denies: nausea, vomiting, abdominal pain, diarrhea, constipation, melena, hematochezia, other Genitourinary: denies: dysuria, frequency, incontinence, hematuria, retention, other - Medication Medications: Active Medications Generic Name Dose Route Start Last Admin Trade Name Freq PRN Reason Stop Dose Admin Acetaminophen 650 mg 12/05/19 09:32 12/09/19 20:39 Tylenol PO 650 mg Q6H PRN Administration Pain Albuterol Sulfate 2 puff 11/30/19 19:00 12/10/19 12:31 Proventil Hfa INH 2 puff [id number] ENZO Administration Amiodarone HCl 200 mg 12/09/19 09:00 12/10/19 08:08 Cordarone PO 200 mg DAILY ENZO Administration Aspirin 81 mg 12/10/19 09:00 12/10/19 08:01 Ecotrin PO 81 mg DAILY ENZO Administration Digoxin 0.25 mg 11/30/19 09:00 12/10/19 08:01 Lanoxin PO 0.25 mg DAILY ENZO Administration Famotidine 20 mg 12/02/19 21:00 12/10/19 08:09 Pepcid PO 20 mg BID ENZO Administration Finasteride 5 mg 11/28/19 09:00 12/10/19 08:09 Proscar PO 5 mg DAILY ENZO Administration Insulin Human Lispro 0 units 11/29/19 09:41 12/09/19 17:39 Humalog SC 2 unit .MILD SLIDING SCALE PRN Administration Mild Correctional Scale Metoprolol Tartrate 12.5 mg 11/29/19 21:00 12/10/19 08:08 Lopressor PO 12.5 mg BID ENZO Administration Quetiapine Fumarate 200 mg 11/27/19 21:00 12/09/19 20:39 Seroquel PO 200 mg HS ENZO Administration Senna/Docusate Sodium 1 tab 12/08/19 21:00 12/10/19 08:08 Senokot S PO 1 tab BID ENZO Administration Sodium Chloride 10 ml 11/30/19 21:00 12/10/19 10:08 Flush - Normal Saline IVF 10 ml Q12HR ENZO Administration Tamsulosin HCl 0.4 mg 11/28/19 09:00 12/10/19 08:08 Flomax PO 0.4 mg DAILY ENZO Administration - Exam Neck: negative: supple, symmetric, no JVD, no thyromegaly, no lymphadenopathy, no carotid bruit, JVD Heart: negative: RRR, no murmur, no gallops, no rubs, normal peripheral pulses, irregular, diminshed peripheral pulses, murmur present, II/IV, III/IV Respiratory: negative: CTAB, no wheezes, no rales, no ronchi, normal chest expansion, no tachypnea, normal percussion, rales, rhonchi, tachypneic, wheezes Gastrointestinal: negative: soft, non-tender, non-distended, normal bowel sounds , no palpable masses, no hepatomegaly, no splenomegaly, no bruit, no guarding, no rigidity, tender to palpation, distended, diminished bowl sounds, voluntary guarding Hosp A/P (1) Paraphimosis Code(s): N47.2 - PARAPHIMOSIS Status: Acute (2) Acute pneumothorax Code(s): J93.83 - OTHER PNEUMOTHORAX Status: Acute - Plan Patient admitted as a transfer from [facility] on account of covid 19 pneumonia and pneumothorax with chest tube. Currently extubated and doing well. He has been out of the unit for 2 days now. Patient generally stable -Acute hypoxic respiratory failureintubated Secondary to covid pneumonia and pneumothorax Extubated a day ago doing generally well Pulmonology following Possible transfer for ICU tomorrow. -Covid-19 pneumonia Resolvingcontinue management Repeat COVID test set indeterminate result. Patient still on contact precautionsID contracted. Pulmonary input appreciated -Left pneumothorax Consulting cardiothoracic surgery to manage chest tube Pulmonology is on board Mild encephalopathy Etiology unclearimproved We will check B12 TSH folic acid and phosphorus. Replace as indicated. This may be possibly deliriumthe night oriented and reduce irritation Hyperglycemia Likely secondary to steroids We will continue on low correctional dose insulin Close glucose monitoring -Afib Now in sinus rhythm Continue p.o. digoxin and metoprolol and amiodarone Full dose Lovenox for stroke prophylaxisplan to switch to Eliquis as pneumothorax resolved Cardiology signed off Schizophrenia Continue Seroquel BPH Continue tamsulosin and finasteride VT prophylaxisLovenox therapeutic Dispositionpending improvement Peripheral edema We will try PRN Lasix Monitor electrolytes VT prophylaxis therapeutic: Lovenox full dose will change to eliquis. 12/04 pt has paraphimosis he is able to urinate will monitor. will add labs today. if pt paraphimosis worsens will get urology. pt has no pain. 12/05 will consult urology, he still has no pain nor any issues with urinating. will continue current meds. waiting for placement. will change AC to eliquis. 12/06 pt last night had a recurrent pneumothorax. He had a chest tube placed again to his left lung. His paraphimosis was reduced. Appreciate urology's input. WILL NEED TO BE CAREFUL IF PT NEEDS REINSERTION OF PELAYO CATH SINCE HE IS NOT CIRCUMCISED. 12/07 pt's hh dropped will stop lovenox and was transfused 2untis of blood. will get cxr abdullahi. He still has his chest tube. 12/08 hh is stable, pt cxr appears stable. Chest tube to be removed when ok with surgery. anna hold Ac for now. Pt is on asa for afib. will add scd. His hh dropped with lovenox. will order ct abd/pel 12/09 no overt bleed on ct abd/pel, HH has been stable. will start pt on asa. pt' s abd/pel ct which included lower part of his lung indicated multiiple air cyst. pt is at a risk of recurrent pneumothorax. will work on getting him to rehab. will start pt on asa.
--- NOTE | 2019-12-10 16:51 | CT ---
CT OF THE THORAX WITHOUT IV CONTRAST INDICATION: 58-year-old male with shortness of breath COMPARISON: Prior CT the abdomen and pelvis without contrast dated December 09, 2019 FINDINGS: LUNGS: There are areas of saccular type bronchiectasis seen within the right middle lobe, both lower lobes and right upper lobe some of which have an air-fluid level. There is airspace consolidation in the left lower lobe. Areas of suspected subsegmental volume loss seen within the right upper lobe. Pleural spaces: There is a tiny left and small right pleural effusion. Lymph nodes: No pathologically enlarged lymph nodes. Heart and great vessels: The lack of IV contrast limits interrogation of the heart and great vessels. There is scattered thoracic and coronary artery calcifications. There is a right subclavian central venous catheter. Upper abdomen: There are small hypodensities within the right hepatic lobe that cannot be detected de finitely characterize. One measures 1.2 cm on image 50 of series 2 and additional measures 2 cm on image 53 series 2. There is a simple appearing cyst within the right hepatic lobe on image 55 of seri es 2. There is diffuse anasarca and mild ascites. Osseous structures: No acute osseous abnormality. IMPRESSION: 1. Scattered areas of saccular type bronchiectasis is seen predominantly in a basilar distribution wi th some involvement of the right upper lobe may reflect sequela of prior infectious or inflammatory condition. There are air-fluid levels present within many of the saccular bronchiectatic and cystic r egions suspicious for superimposed infection. There is marked consolidation in the left lower lobe remaining. 2. Small right and tiny left pleural effusion. Mild ascites and diffuse anasarca. 3. Ill-defined hypodensities within the right hepatic lobe. Further evaluation with hepatic ultrasoun d may be helpful for additional characterization. One lesion within the central right hepatic lobe is consistent with a simple cyst. The additional nonspecific hypodensities may reflect mildly complex cyst.
[2019-12-11] MEDS: Albuterol 200 PUFF (6.7GM INHALER) INH SCH ×4 (00:20→19:14)
[2019-12-11] MEDS: predniSONE 20 MG TAB PO SCH (04:24)
--- NOTE | 2019-12-11 07:59 | RAD ---
XR Chest 1 View Portable History: Removal of chest tube Comparison: CT exam prior day Findings: Loculated hydropneumothorax in the left lung base is similar. Chronic right layering effusi on is also similar. The right subclavian central venous catheter tip projects over the right atrium. No apical pneumothorax is appreciated. Pulmonary arteries are distended. Impression: Uncomplicated removal of the left thoracostomy tube with left basilar hydropneumothorax r emaining.
--- NOTE | 2019-12-11 09:33 | PRG ---
DATE OF SERVICE: 12/11/2019 SUBJECTIVE: Quintin Sheikh this morning is awake, alert, responsive. OBJECTIVE: VITAL SIGNS: Temperature 98, pulse respirations 20, saturations are 97% on room air, blood pressure denies any shortness of breath, coughing, or wheezing. CHEST: Decreased breath sounds. No wheezing. CARDIAC: Normal S1 and S2. No gallops. ABDOMEN: No masses. His chest tube was removed yesterday, that he has nonspecific left lower lobe infiltrate, but I do not see any evidence of pneumothorax. ASSESSMENT: Real positive pneumonia, spontaneous pneumothorax, encephalopathy. PLAN: Probably, he could be discharged home any time. Follow up with primary care physician. Job ID: [id number]
[2019-12-11] MEDS: AMOXicillin 250 MG CAP PO SCH ×3 (10:04→21:04)
[2019-12-11] MEDS: Aspirin 81 mg Enteric Coated Tablet PO SCH (10:05)
[2019-12-11] MEDS: Digoxin 0.25 MG TAB PO SCH (10:06)
[2019-12-11] MEDS: Finasteride 5 MG TAB PO SCH (10:07)
[2019-12-11] MEDS: Metoprolol Tartrate 25 MG TAB PO SCH ×2 (10:07→21:05)
[2019-12-11] MEDS: Famotidine 20 MG TAB PO SCH ×2 (10:07→21:04)
[2019-12-11] MEDS: Senokot S 8.6-50 MG TAB PO SCH ×2 (10:08→21:04)
[2019-12-11] MEDS: Tamsulosin HCl 0.4 MG CAP PO SCH (10:09)
--- NOTE | 2019-12-11 12:06 | PDOC.HOSPP ---
- Subjective Encounter Date: 12/11/19 Encounter Time: 10:00 Subjective: pt up in bed states he feels well today. - Objective Vital Signs & Weight: Vital Signs (12 hours) Temp Pulse Pulse Resp BP BP Pulse Ox 12/11/19 10:06 86 12/11/19 09:21 78 110/71 12/11/19 08:15 98.6 F 78 20 118/73 97 12/11/19 06:36 95 12/11/19 04:00 99.1 F 75 20 119/73 96 Pulse Ox 12/11/19 10:06 12/11/19 09:21 96 12/11/19 08:15 12/11/19 06:36 12/11/19 04:00 Weight Admit Weight 146 lb 9.718 oz Weight 152 lb 7 oz Most Recent Monitor Data Heart Rate from ECG 81 NIBP 109/73 NIBP BP-Mean 85 Respiration from ECG 22 SpO2 100 I&O: 12/10/19 12/11/19 12/12/19 06:59 06:59 06:59 Intake Total 270 1020 Output Total 240 1060 Balance 30 -40 Result Diagrams: 12/10/19 08:09 12/09/19 10:00 Additional Labs: Accuchecks 12/11/19 12/11/19 12/10/19 10:45 05:42 20:14 POC Glucose 174 H 94 156 H 12/10/19 16:54 POC Glucose 164 H Hospitalist ROS - Review of Systems Respiratory: denies: cough, dry, shortness of breath, hemoptysis, SOB with excertion, pleuritic pain, sputum, wheezing, other Cardiovascular: denies: chest pain, palpitations, orthopnea, paroxysmal noc. dyspnea, edema, light headedness, other Gastrointestinal: denies: nausea, vomiting, abdominal pain, diarrhea, constipation, melena, hematochezia, other - Medication Medications: Active Medications Generic Name Dose Route Start Last Admin Trade Name Freq PRN Reason Stop Dose Admin Acetaminophen 650 mg 12/05/19 09:32 12/09/19 20:39 Tylenol PO 650 mg Q6H PRN Administration Pain Albuterol Sulfate 2 puff 11/30/19 19:00 12/11/19 06:34 Proventil Hfa INH 2 puff [id number] ENZO Administration Amoxicillin 250 mg 12/11/19 09:00 12/11/19 10:04 Amoxil PO 250 mg TID ENZO Administration Aspirin 81 mg 12/10/19 09:00 12/11/19 10:05 Ecotrin PO 81 mg DAILY ENZO Administration Digoxin 0.25 mg 11/30/19 09:00 12/11/19 10:06 Lanoxin PO 0.25 mg DAILY ENZO Administration Famotidine 20 mg 12/02/19 21:00 12/11/19 10:07 Pepcid PO 20 mg BID ENZO Administration Finasteride 5 mg 11/28/19 09:00 12/11/19 10:07 Proscar PO 5 mg DAILY ENZO Administration Insulin Human Lispro 0 units 11/29/19 09:41 12/09/19 17:39 Humalog SC 2 unit .MILD SLIDING SCALE PRN Administration Mild Correctional Scale Metoprolol Tartrate 12.5 mg 11/29/19 21:00 12/11/19 10:07 Lopressor PO 12.5 mg BID ENZO Administration Quetiapine Fumarate 200 mg 11/27/19 21:00 12/10/19 22:35 Seroquel PO 200 mg HS ENZO Administration Senna/Docusate Sodium 1 tab 12/08/19 21:00 12/11/19 10:08 Senokot S PO 1 tab BID ENZO Administration Sodium Chloride 10 ml 11/30/19 21:00 12/11/19 10:09 Flush - Normal Saline IVF 10 ml Q12HR ENZO Administration Tamsulosin HCl 0.4 mg 11/28/19 09:00 12/11/19 10:09 Flomax PO 0.4 mg DAILY ENZO Administration - Exam Neck: negative: supple, symmetric, no JVD, no thyromegaly, no lymphadenopathy, no carotid bruit, JVD Heart: negative: RRR, no murmur, no gallops, no rubs, normal peripheral pulses, irregular, diminshed peripheral pulses, murmur present, II/IV, III/IV Respiratory: negative: CTAB, no wheezes, no rales, no ronchi, normal chest expansion, no tachypnea, normal percussion, rales, rhonchi, tachypneic, wheezes Gastrointestinal: negative: soft, non-tender, non-distended, normal bowel sounds , no palpable masses, no hepatomegaly, no splenomegaly, no bruit, no guarding, no rigidity, tender to palpation, distended, diminished bowl sounds, voluntary guarding Extremities: 2+ LE edema Hosp A/P (1) Paraphimosis Code(s): N47.2 - PARAPHIMOSIS Status: Acute (2) Acute pneumothorax Code(s): J93.83 - OTHER PNEUMOTHORAX Status: Acute - Plan Patient admitted as a transfer from [facility] on account of covid 19 pneumonia and pneumothorax with chest tube. Currently extubated and doing well. He has been out of the unit for 2 days now. Patient generally stable -Acute hypoxic respiratory failureintubated Secondary to covid pneumonia and pneumothorax Extubated a day ago doing generally well Pulmonology following Possible transfer for ICU tomorrow. -Covid-19 pneumonia Resolvingcontinue management Repeat COVID test set indeterminate result. Patient still on contact precautionsID contracted. Pulmonary input appreciated -Left pneumothorax Consulting cardiothoracic surgery to manage chest tube Pulmonology is on board Mild encephalopathy Etiology unclearimproved We will check B12 TSH folic acid and phosphorus. Replace as indicated. This may be possibly deliriumthe night oriented and reduce irritation Hyperglycemia Likely secondary to steroids We will continue on low correctional dose insulin Close glucose monitoring -Afib Now in sinus rhythm Continue p.o. digoxin and metoprolol and amiodarone Full dose Lovenox for stroke prophylaxisplan to switch to Eliquis as pneumothorax resolved Cardiology signed off Schizophrenia Continue Seroquel BPH Continue tamsulosin and finasteride VT prophylaxisLovenox therapeutic Dispositionpending improvement Peripheral edema We will try PRN Lasix Monitor electrolytes VT prophylaxis therapeutic: Lovenox full dose will change to eliquis. 12/04 pt has paraphimosis he is able to urinate will monitor. will add labs today. if pt paraphimosis worsens will get urology. pt has no pain. 12/05 will consult urology, he still has no pain nor any issues with urinating. will continue current meds. waiting for placement. will change AC to eliquis. 12/06 pt last night had a recurrent pneumothorax. He had a chest tube placed again to his left lung. His paraphimosis was reduced. Appreciate urology's input. WILL NEED TO BE CAREFUL IF PT NEEDS REINSERTION OF PELAYO CATH SINCE HE IS NOT CIRCUMCISED. 12/07 pt's hh dropped will stop lovenox and was transfused 2untis of blood. will get cxr abdullahi. He still has his chest tube. 12/08 hh is stable, pt cxr appears stable. Chest tube to be removed when ok with surgery. anna hold Ac for now. Pt is on asa for afib. will add scd. His hh dropped with lovenox. will order ct abd/pel 12/09 no overt bleed on ct abd/pel, HH has been stable. will start pt on asa. pt' s abd/pel ct which included lower part of his lung indicated multiiple air cyst. pt is at a risk of recurrent pneumothorax. will work on getting him to rehab. will start pt on asa. 12/10 pt up in bed states he feels well. Family called and updated. pt to go to rehab next week spoke with case management assistant. spoke with ID will put him on amoxicillin given his ct findings concerns for strep anginosus. pt to be on asa for now for afib. He is also on scd. s/p pneumothorax x2. per case management pt can go to rehab in am since there were no bed today.
[2019-12-11] MEDS: HumaLOG 300 UNITS/3 ML VIAL SC PRN (13:22)
[2019-12-11] MEDS: Acetaminophen 325 MG TAB PO PRN (15:37)
--- NOTE | 2019-12-11 16:34 | PRG ---
DATE OF SERVICE: 12/11/2019 The patient's left-sided chest tube was discontinued yesterday. Repeat chest x-ray this morning shows no pneumothorax. X-ray was reviewed by Dr. Escalante. Surgical Services will sign off at this time. Please let us know if you have any questions or further needs. Job ID: [id number]
[2019-12-12] MEDS: Albuterol 200 PUFF (6.7GM INHALER) INH SCH ×3 (00:37→15:40)
[2019-12-12] MEDS: AMOXicillin 250 MG CAP PO SCH ×2 (08:34→15:49)
[2019-12-12] MEDS: Finasteride 5 MG TAB PO SCH (08:35)
[2019-12-12] MEDS: Famotidine 20 MG TAB PO SCH (08:36)
[2019-12-12] MEDS: Aspirin 81 mg Enteric Coated Tablet PO SCH (08:36)
[2019-12-12] MEDS: Metoprolol Tartrate 25 MG TAB PO SCH (08:36)
[2019-12-12] MEDS: Senokot S 8.6-50 MG TAB PO SCH (08:36)
[2019-12-12] MEDS: Tamsulosin HCl 0.4 MG CAP PO SCH (08:36)
[2019-12-12] MEDS: Digoxin 0.25 MG TAB PO SCH (08:36)
--- NOTE | 2019-12-12 12:54 | PRG ---
DATE OF SERVICE: SUBJECTIVE: The patient is doing well without complaints. His chest tube has been removed. OBJECTIVE: VITAL SIGNS: Temperature 99.2, pulse 85, respirations 16, O2 saturation 96% on room air, blood pressure 122/81. HEENT: Unremarkable. NECK: No adenopathy or JVD. LUNGS: Clear anteriorly. CARDIAC: S1, S2. Regular. ABDOMEN: Soft. EXTREMITIES: No edema. ASSESSMENT: 1. COVID-19 pneumonia, resolving. 2. Status post chest tube placement for left pneumothorax. PLAN: He looks stable enough to transfer to the next level of care. He has been weaned off steroids and probably should not need antibiotics much longer. No further pulmonary recommendations. We will sign off. Job ID: [id number]
[2019-12-12 16:07] VITALS: BP 129/79; TEMP 98.1
--- NOTE | 2019-12-13 07:29 | DIS ---
DATE OF ADMISSION: 11/27/2019 DATE OF DISCHARGE: 12/12/2019 HOSPITAL COURSE: Mr. Sheikh is a 58-year-old male with a medical history of previously diagnosed COVID pneumonia who presented with drowsiness. He was found to have acute hypoxic respiratory failure due to COVID pneumonia and left pneumothorax, Streptococcus anginosus bacteremia, atrial fibrillation with RVR, and chronic hepatitis C. Acute hypoxic respiratory failure due to COVID pneumonia and left pneumothorax. For COVID pneumonia, the patient was treated with steroids and antibiotics per recommendations. For left pneumothorax, the patient was inserted with a chest tube, which was removed 3 days prior to discharge. Strep anginosus bacteremia. The patient had CT findings that showed lung air fluid cysts and liver hypodensities. Per verbal communication with Infectious Disease, the patient was started on antibiotics pending outpatient followup within a week. Chronic hepatitis C. The patient will be followed up by infectious diseases as an outpatient. Atrial fibrillation with RVR. Cardiology was consulted. Amiodarone was started and the patient was transitioned to metoprolol and digoxin. The patient converted to sinus and remained in sinus on the day of discharge. CHADS VASc score was 1, so the patient was not started on anticoagulation as per Cardiology. PHYSICAL EXAMINATION: VITAL SIGNS: Blood pressure 125/81, pulse 85, respiratory rate 16, oxygen saturation 96% on room air, temperature 99.2 Fahrenheit. GENERAL APPEARANCE: Sitting comfortably in the chair, in no apparent distress. HEENT: Normocephalic, atraumatic. No JVD. CARDIAC: Regular rate and rhythm. No murmurs, gallops, or rubs. LUNGS: Clear to auscultation bilaterally with mild inspiratory crackles in the mid and lower lung wagner bilaterally, no tachypnea, no wheezing or rhonchi. GI: Soft, nontender, nondistended. Normal bowel sounds. EXTREMITIES: Bilateral lower extremity pitting edema up to knee level. PSYCHIATRIC: Proper mood and affect. Alert and oriented x3. MEDICATION LIST: 1. Discontinued medications: Amlodipine. 2. Triamterene and hydrochlorothiazide were discontinued, because the patient's blood pressure has been well controlled with metoprolol and digoxin and the patient presented with hyponatremia. New medications: 1. Augmentin 875/125 q.12 hours for Streptococcus anginosus, 7 days pending outpatient appointment with Infectious Disease. 2. Aspirin 81 mg p.o. daily. 3. Digoxin 0.25 mg p.o. daily. 4. Metoprolol tartrate 12.5 mg p.o. b.i.d. 5. Senna docusate 8.6/50 mg p.o. b.i.d. Continued medications: 1. Finasteride. 2. Quetiapine. 3. Tamsulosin. Job ID: [id number]
--- NOTE | 2019-12-13 21:15 | PQF ---
CLINICAL DOCUMENTATION CLARIFICATION FORM: Dear : Jaocbo Dunn Date / Time: 12/13/19 7797 Please exercise your independent, professional judgment in responding to the clarification form. Clinical indicators are provided on the bottom of this form for your review In your clinical opinion based on clinical findings below, can you please specify the type of Spontaneous Pneumothorax if: Please check appropriate box(es): [ x ] Primary Spontaneous Pneumothorax [ ] Secondary Spontaneous Pneumothorax due to Covid 19 infection [ ] Other diagnosis [ ] Unable to determine Physician Signature: Date/Time: For continuity of documentation, please document condition throughout progress notes and discharge summary. Thank You. To be completed by CDI/Coding staff for physician review: Present Clinical Indicators - Signs / Symptoms / Labs Results and Location in Medical Record [X] BP 153/112, Pulse 116, Resp 26, Temp 98.4 Vital signs 12/27 [X] He had chest xray which indicated a left sided acute pneumothorax H&P p1 11/26 Dr Elena [X] Covid Pneumonia H&P p2 11/26 Dr Elena [X] He was noted to have loculated subpumonic pneumonothorax ad perhaps a small apical component on the left as well some pulmonary infiltrates Consult Dr Snell 12/01 [X] Spontaneous Pneumothorax is usually secondary to rupture of subpleural bullae and risk factors that contribute include chronic smoking Consult Dr Ramires 12/03 [X] Cases of spontaneous pneumothorax have been described in covid infection, but is not particularly frequent and probably associated with underlying lung disease Consult Dr Ramires 12/03 Present Risk Factors Results and Location in Medical Record [X] 58 year old Male H&P p1 11/26 Dr Elena [X] Tobacco abuse H&P p1 11/26 Dr Elena [X] Acute Hypoxic Respiratory Failure H&P p2 11/26 Dr Elena [X] Acute Metabolic Encephalopathy H&P p2 11/26 Dr Elena Present Treatments Results and Location in Medical Record [X] Albuterol Sulfate 2 puff JUN 06 [X] IV Remdesvir 100 mg JUN 06 [X] Mechanical Ventilator Respiratory Panel 11/26 [X] Chest tube placement [X] Isolation Ordered 11/26 Dr Reyes [X] Convalescent Apher Plasma Ordered 11/26 Dr Reyes [X] Chest X-ray Imaging Dr Del Rosario 11/27 [X] Surgery Consult Consult Dr Snell 12/01 [X] ID consult Consult Dr Ramires 12/03 CDS/Child Day Care Provider Signature: Gloria Cervantes Phone #: ext [phone] Date/Time: 12/13/20192113 This is a permanent part of the Medical Record [facility]
== END 2019-12-12 17:42 | DRG 208 ==
LOC: CCU 09:37 → 2SW 12-02 11:14 → IMCU/EMU 12-07 01:43 → 2NO 12-09 16:27
PROVIDERS: ADMIT Internal Medicine; ATTEND Internal Medicine
PROC: 5A1945Z Respiratory Ventilation, 24-96 Consecutive Hours (ICD-10-PCS; principal; 2019-11-27)
PROC: XW033E5 Introduction of Remdesivir Anti-infective into Peripheral Vein, Percutaneous Approach, New Technology Group 5 (ICD-10-PCS; 2019-11-27)
PROC: 8E0ZXY6 Isolation (ICD-10-PCS; 2019-11-27)
PROC: XW033E5 Introduction of Remdesivir Anti-infective into Peripheral Vein, Percutaneous Approach, New Technology Group 5 (ICD-10-PCS; 2019-11-28)
PROC: XW13325 Transfusion of Convalescent Plasma (Nonautologous) into Peripheral Vein, Percutaneous Approach, New Technology Group 5 (ICD-10-PCS; 2019-11-28)
PROC: XW033E5 Introduction of Remdesivir Anti-infective into Peripheral Vein, Percutaneous Approach, New Technology Group 5 (ICD-10-PCS; 2019-11-29)
PROC: 0T9B70Z Drainage of Bladder with Drainage Device, Via Natural or Artificial Opening (ICD-10-PCS; 2019-12-04)
PROC: 0W9B30Z Drainage of Left Pleural Cavity with Drainage Device, Percutaneous Approach (ICD-10-PCS; 2019-12-07)
PROC: 30233N1 Transfusion of Nonautologous Red Blood Cells into Peripheral Vein, Percutaneous Approach (ICD-10-PCS; 2019-12-08)
DX: J93.83 Other pneumothorax (principal); A40.8 Other streptococcal sepsis; U07.1 COVID-19; J96.01 Acute respiratory failure with hypoxia; J12.89 Other viral pneumonia; R65.20 Severe sepsis without septic shock; G93.41 Metabolic encephalopathy; R64 Cachexia; M62.82 Rhabdomyolysis; E87.0 Hyperosmolality and hypernatremia; I47.1 Supraventricular tachycardia; N17.9 Acute kidney failure, unspecified; E87.1 Hypo-osmolality and hyponatremia; Z68.22 Body mass index [BMI] 22.0-22.9, adult; B18.2 Chronic viral hepatitis C; I48.91 Unspecified atrial fibrillation; D29.1 Benign neoplasm of prostate; F32.9 Major depressive disorder, single episode, unspecified; F17.210 Nicotine dependence, cigarettes, uncomplicated; F12.10 Cannabis abuse, uncomplicated; N18.1 Chronic kidney disease, stage 1; I12.9 Hypertensive chronic kidney disease with stage 1 through stage 4 chronic kidney disease, or unspecified chronic kidney disease; F25.0 Schizoaffective disorder, bipolar type; R73.9 Hyperglycemia, unspecified; T38.0X5A Adverse effect of glucocorticoids and synthetic analogues, initial encounter; R60.0 Localized edema; N47.2 Paraphimosis; Z79.899 Other long term (current) drug therapy; Z78.1 Physical restraint status
CPT/HCPCS: 36415; 36416; 36430; 36600; 71045; 71250; 74176; 80048; 80053; 82040; 82274; 82607; 82728; 82805; 83605; 83735; 83880; 84100; 85025; 86140; 86780; 86803; 86850; 86900; 86901; 87070; 87205; 87324; 87389; 87449; 87522; 87635; 93005; 93010; 93306; 94002; 94003; 94640; J0282; J0692; J1160; J1650; J1940; J2060; J2704; J2920; J3010; J3475; J3490; J7030; J7050; J7070; J7512; J7620; P9016; P9017; S0028; U0003